=== PATIENT | female | born 1940 | race Caucasian/White ===

== ENCOUNTER → 2019-06-25 10:56 | Outpatient (BNVA) | payer MEDICARE, MEDICAID, SELFPAY | PROVIDERS: PCP Nurse Practitioner Family; Visit Provider Nurse Practitioner Family | DX: E53.8 Deficiency of other specified B group vitamins (principal) | CPT/HCPCS: 82607 ==

== ENCOUNTER 2019-08-06 09:12 | Day surgery (SDC) | payer MEDICARE, MEDICAID, SELFPAY ==
[2019-08-04 10:52] VITALS: BMI 20.6
[2019-08-06 09:27] VITALS: BP 152/60; PULSE 87; RESP 18; TEMP 36.8; O2SAT 97
--- NOTE | 2019-08-06 09:27 | W.PM.OPSUD ---
Surgery/Procedure H&P Update DATE OF PROCEDURE: August 06, 2019 DATE H&P PERFORMED: 07/28/19 H&P UPDATE INFORMATION: No changes to prior documentation PLANNED PROCEDURE: Operation Date: 08/06/19 10:45 Proposed Procedures p Colonoscopy(Not Applicable) - Sharan Venegas MD
[2019-08-06] MEDS: sodium chloride 0.9% 1,000 ML 30 ML IV (09:37)
--- NOTE | 2019-08-06 09:41 | ANES.PREANE2 ---
Pre-Anesthetic Assessment Pre-Anesthetic Assessment: Height/Weight: Height 1.65 m Weight 56.245 kg Temp Pulse Resp BP Pulse Ox 98.3 F 87 18 152/60 97 08/06/19 09:27 08/06/19 09:27 08/06/19 09:27 08/06/19 09:27 08/06/19 09:27 Preop Diagnosis: abdominal pain Proposed Procedure: Operation Date: 08/06/19 10:45 Proposed Procedures p Colonoscopy(Not Applicable) - Sharan Venegas MD Familial anesthetic complications: None Was Beta Jose Luis taken within 24 hours: N/A Last intake: Intake Last Liquid Date 08/05/19 Last Liquid Time 22:00 Last Solid Date 08/04/19 Social: Social History: Tobacco and No alcohol Exam: Pre-Anes Outpt Exam: alert, oriented x 3, clear to auscultation bilaterally and regular rate & rhythm Airway: MP: 4 Dentition: False Pulmonary: Pulmonary: COPD GI: GI: GERD Metabolic: Metabolic: Hyperlipidemia Meds/Allergies Current Medications: Current Medications Generic Name Dose Route Start Last Admin Trade Name Freq PRN Reason Stop Dose Admin Sodium Chloride 1,000 mls @ 30 ml s/hr 08/06/19 09:30 08/06/19 09:37 Sodium Chloride 0.9% IV 08/07/19 09:29 30 mls/hr .Q24H ANNAMARIE Administration PFSH Anesthesia PFSH: Medical History Anxiety Cigarette smoker COPD (chronic obstructive pulmonary disease) Diverticulosis GERD (gastroesophageal reflux disease) Internal hemorrhoids Multiple lung nodules (~03/2019) 5mm right upper lobe 3mm right lower lob (CT ) Thyroid nodule 9mm left thyroid gland 10mm in isthmus (CT ) Vitamin B12 deficiency Vitamin D deficiency Surgical History Status post cholecystectomy Family History Other CAD (coronary artery disease) Cancer Social History Smoking and tobacco status: current every day smoker Alcohol intake: never Data Anesthesia Cardiac Studies: No Data to Display
[2019-08-06 12:01] VITALS: BP 120/58; PULSE 74; RESP 16; TEMP 36.1; O2SAT 100
[2019-08-06 12:27] VITALS: BP 137/69; PULSE 73; RESP 18; O2SAT 98
== END 2019-08-06 12:50 | disposition home or self-care (01) ==
PROVIDERS: PCP Nurse Practitioner Family; Visit Provider Surgery
PROC: 0DJD8ZZ Inspection of Lower Intestinal Tract, Via Natural or Artificial Opening Endoscopic (ICD-10-PCS; CPT 45378; principal; 2019-08-06 10:45)
DX: Z86.010 Personal history of colon polyps (principal); Z80.0 Family history of malignant neoplasm of digestive organs; Z83.71 Family history of colonic polyps; R10.9 Unspecified abdominal pain; D12.5 Benign neoplasm of sigmoid colon; D12.3 Benign neoplasm of transverse colon; K57.30 Diverticulosis of large intestine without perforation or abscess without bleeding; K64.8 Other hemorrhoids; J44.9 Chronic obstructive pulmonary disease, unspecified; K21.9 Gastro-esophageal reflux disease without esophagitis; E78.5 Hyperlipidemia, unspecified; F41.9 Anxiety disorder, unspecified; F17.210 Nicotine dependence, cigarettes, uncomplicated; Z82.49 Family history of ischemic heart disease and other diseases of the circulatory system
CPT/HCPCS: 12345; 45385; 88305; J2704; J7030

== ENCOUNTER → 2019-11-25 11:52 | Outpatient (BNVA) | payer MEDICARE, MEDICAID, SELFPAY | PROVIDERS: PCP Nurse Practitioner Family; Visit Provider Nurse Practitioner Family | DX: K21.9 Gastro-esophageal reflux disease without esophagitis (principal); M62.838 Other muscle spasm; J44.9 Chronic obstructive pulmonary disease, unspecified; J30.89 Other allergic rhinitis; D64.9 Anemia, unspecified; F41.9 Anxiety disorder, unspecified; E78.2 Mixed hyperlipidemia; E83.42 Hypomagnesemia; E55.9 Vitamin D deficiency, unspecified; Z79.899 Other long term (current) drug therapy; E53.8 Deficiency of other specified B group vitamins; E04.1 Nontoxic single thyroid nodule; R91.8 Other nonspecific abnormal finding of lung field | CPT/HCPCS: 80053; 80061; 81003; 82306; 82607; 83036; 83550; 83735; 84443; 85025 ==

== ENCOUNTER → 2019-12-22 09:49 | Outpatient (BNVA) | payer MEDICARE, MEDICAID, SELFPAY | PROVIDERS: PCP Nurse Practitioner Family; Visit Provider Nurse Practitioner Family | DX: Z11.59 Encounter for screening for other viral diseases (principal); Z20.828 Contact with and (suspected) exposure to other viral communicable diseases | CPT/HCPCS: 87635 ==

== ENCOUNTER → 2020-02-15 16:54 | Outpatient (BNVA) | payer MEDICARE, MEDICAID, SELFPAY | PROVIDERS: PCP Nurse Practitioner Family; Visit Provider Nurse Practitioner | DX: Z20.828 Contact with and (suspected) exposure to other viral communicable diseases (principal) | CPT/HCPCS: 87635 ==

== ENCOUNTER → 2020-02-23 09:45 | Outpatient (BNVA) | payer MEDICARE, MEDICAID, SELFPAY | PROVIDERS: PCP Nurse Practitioner Family; Visit Provider Emergency Medicine | DX: Z20.828 Contact with and (suspected) exposure to other viral communicable diseases (principal) | CPT/HCPCS: 87635 ==

== ENCOUNTER → 2020-05-17 11:38 | Outpatient (BNVA) | payer MEDICARE, MEDICAID, SELFPAY | PROVIDERS: PCP Nurse Practitioner Family; Visit Provider Family Medicine | DX: E53.8 Deficiency of other specified B group vitamins (principal) | CPT/HCPCS: 82607 ==

== ENCOUNTER → 2020-07-28 13:35 | Outpatient (BNVA) | payer MEDICARE, MEDICAID, SELFPAY | PROVIDERS: PCP Nurse Practitioner Family; Visit Provider Nurse Practitioner Family | DX: E53.8 Deficiency of other specified B group vitamins (principal); Z79.899 Other long term (current) drug therapy; E04.1 Nontoxic single thyroid nodule; D64.9 Anemia, unspecified; E55.9 Vitamin D deficiency, unspecified; J44.9 Chronic obstructive pulmonary disease, unspecified; E78.2 Mixed hyperlipidemia | CPT/HCPCS: 80053; 80061; 82306; 82607; 83036; 83550; 83735; 83921; 84439; 84443; 84481; 85025 ==

== ENCOUNTER → 2020-08-01 09:15 | Outpatient (BNVA) | payer MEDICARE, MEDICAID, SELFPAY | PROVIDERS: PCP Nurse Practitioner Family; Visit Provider Nurse Practitioner Family | DX: E53.8 Deficiency of other specified B group vitamins (principal) | CPT/HCPCS: 82607 ==

== ENCOUNTER → 2020-10-11 11:31 | Outpatient (BNVA) | payer MEDICARE, MEDICAID, SELFPAY | PROVIDERS: PCP Nurse Practitioner Family; Visit Provider Nurse Practitioner Family | DX: E53.8 Deficiency of other specified B group vitamins (principal) | CPT/HCPCS: 82607 ==

== ENCOUNTER → 2021-03-02 13:49 | Outpatient (BNVA) | payer MEDICARE, MEDICAID, SELFPAY | PROVIDERS: PCP Nurse Practitioner Family; Visit Provider Nurse Practitioner Family | DX: K52.9 Noninfective gastroenteritis and colitis, unspecified (principal); E53.8 Deficiency of other specified B group vitamins; Z90.49 Acquired absence of other specified parts of digestive tract | CPT/HCPCS: 74018 ==

== ENCOUNTER → 2021-07-24 15:47 | Outpatient (BNVA) | payer MEDICARE, MEDICAID, SELFPAY | PROVIDERS: PCP Nurse Practitioner Family; Visit Provider Family Medicine | DX: R59.0 Localized enlarged lymph nodes (principal); E07.9 Disorder of thyroid, unspecified; R63.4 Abnormal weight loss | CPT/HCPCS: 84443 ==

== ENCOUNTER → 2021-08-08 12:30 | Outpatient (BNVA) | payer MEDICARE, MEDICAID, SELFPAY | PROVIDERS: PCP Family Medicine; Referring Provider Family Medicine; Visit Provider Otolaryngology | DX: E04.2 Nontoxic multinodular goiter (principal); F17.200 Nicotine dependence, unspecified, uncomplicated | CPT/HCPCS: 99203; 99204 ==

== ENCOUNTER 2021-09-14 11:51 | Outpatient (CLI) | payer MEDICARE, MEDICAID, SELFPAY ==
--- NOTE | 2021-09-14 12:15 | US_ITS ---
WS: [id number] THYROID ULTRASOUND HISTORY: thyroid nodules COMPARISON: 01/27/2018 Right lobe: 1.4 cm x 1.7 cm x 5.4 cm (w x ap x l). Volume: 6.7 cm3. Normal size gland. Predominantly cystic nodules are present within the RIGHT thyroid. Along the junct ion of the RIGHT lobe and the isthmus is a predominant cystic nodule with septations and no increased vascularity or mural nodule. This large collection measures 2.0 x 1.1 x 2.2 cm. Slightly increased i n size since the prior study. There are additional small colloid cyst. Left lobe: 1.3 cm x 1.1 cm x 4.5 cm (w x ap x l). Volume: 3.1 cm3. Normal size gland with a few small colloid nodules. No solid mass. Isthmus: 0.4 cm. US/US thyroid [id number] IMPRESSION: 1. Predominant cystic nodule with a few septations along the RIGHT isthmus. Mi ldly increased in size since 01/27/2018. There is no mural nodule. Low probabil ity of malignancy. 2. Additional bilateral benign colloid nodules.
== END 2021-09-14 11:52 | disposition home or self-care (01) ==
LOC: RAD 11:52
PROVIDERS: PCP Family Medicine; Visit Provider Otolaryngology
DX: E04.2 Nontoxic multinodular goiter (principal)
CPT/HCPCS: 76536

== ENCOUNTER 2021-09-26 13:00 | Oncology outpatient (recurring) (ONCR) | payer MEDICARE, MEDICAID, SELFPAY ==
[2021-09-19 17:03] LABS: Basophils % 0.9 %; Eosinophils # 0.1 10^3/uL (0.0-0.8); Eosinophils % 2.8 %; Hemoglobin 12.3 g/dL (11.5-15.3); Lymphocytes # 1.5 10^3/uL (0.8-4.8); Lymphocytes % 31.3 %; Mean Corpuscular HGB Conc 32.4 g/dL (30.0-36.0); Mean Corpuscular Hemoglobin 29.3 pg (28.0-34.0); Mean Corpuscular Volume 90.5 fl (81-99); Mean Platelet Volume 10.4 fL (7.4-10.4); Monocytes # 0.4 10^3/uL (0.2-0.9); Monocytes % 8.6 %; Neutrophils # 2.63 10^3/uL (1.8-7.7); Neutrophils % 56.2 %; Nucleated Red Blood Cells % 0 %; Platelet Count 274 10^3/cmm (130-400); Red Cell Distribution Width 14.2 % (12.1-15.1); White Blood Count 4.7 10^3/uL (4.0-10.0)
[2021-09-19 17:13] LABS: Erythrocyte Sedimentation Rate 12 mm/hr (0-15)
[2021-09-19 17:22] LABS: Alanine Aminotransferase 13 U/L (0-33); Albumin Level 4.2 g/dL (3.5-5.2); Alkaline Phosphatase 105 IU/L (35-105); Aspartate Amino Transferase 17 U/L (0-32); Blood Urea Nitrogen 14 mg/dL (8-23); Calcium 9.2 mg/dL (8.5-10.5); Carbon Dioxide 27 mmol/L (22-29); Chloride 93 mmol/L (98-107); Glucose 81 mg/dL (65-115); Lactate Dehydrogenase 113 U/L (135-214); Osmolality Calculated 270 mOsm/kg (285-295); Sodium 130 mmol/L (136-145); Total Bilirubin 0.2 mg/dL (0.15-1.2); Total Protein 7.2 g/dL (6.6-8.7)
[2021-09-26] MEDS: iohexol 350 mg/mL 100 mL Btl IV (12:37)
--- NOTE | 2021-09-26 13:00 | CT_ITS ---
WS: [id number] CT CHEST, ABDOMEN AND PELVIS WITH CONTRAST. HISTORY: Restaging, patient denies cancer history. TECHNIQUE: Contiguous 5 mm axial imaging performed through the chest, abdomen and pelvis with IV cont rast, oral contrast has been provided. Coronal and sagittal reformats chest. Coronal and sagittal ref ormats through the abdomen and pelvis. All CT scans at [facility] use at least one of these d ose optimization techniques: automated exposure control; mA and/or kV adjustment per patient size (in cludes targeted exams where dose is matched to clinical indication); or iterative reconstruction. CONTRAST: Omnipaque 350; 75 mL IV. DLP: 1128.03 mGy.cm COMPARISON: 07/18/2021, chest CT 08/01/[address] 08/08/2010. Chest CT: Hyperexpanded lungs from chronic emphysema. Linear areas of thin subsegmental atelectasis i n the RIGHT middle and lower lobes bilaterally. There is a new subsolid nodule LEFT lower lobe with g roundglass attenuation. Slight tree-in-bud opacifications therefore this could be inflammatory or inf ectious. Recently described enlarged RIGHT tracheal lymph node is reidentified with no improvement. L ymph node measures 2.9 x 3.1 cm very minimally increased in size. This lymph node appears necrotic an d round. There are additional smaller lymph nodes at the AP window and in the subcarina. Subcarinal l ymph node short axis I.3 cm is enlarged. New RIGHT pleural effusion. Heart size remains normal. No pe ricardial effusion. Unchanged RIGHT isthmus thyroid nodule. Cystic nodule with septations. No axillary lymph nodes. Abdomen CT: Prior cholecystectomy. Liver is normal size. Area of decreased attenuation along the falc iform ligament is probably focal fatty sparing. Additional area of decreased attenuation in the RIGHT lobe of the liver measures 10 mm maximum diameter. Portal vein is normal. Very mild central bile kike t dilatation on the basis of cholecystectomy. Common bile duct measures 8 mm and tapers normally to t he pancreatic head. Normal spleen and pancreas. No adrenal mass. Nonobstructing calcifications within each kidney. No hydronephrosis or solid mass. Moderate atherosclerotic plaque within the aorta. No a neurysm. Plaque continues into the iliac arteries bilaterally. Moderate distention of the stomach with contrast. There is very mild prominence of the stomach wall w hich may be due to underdistention. No small bowel obstruction. The appendix is been removed. There a re a few scattered distal colonic diverticula. Pelvic CT: Urinary bladder is well distended. No free fluid or adenopathy. Uterus is seen now less ex pected. Soft tissue granulomata in the posterior pelvis. Mild degenerative changes in the spine. No d estructive bone lesions. CT/CT chest abd pel w con* IMPRESSION: 1. RIGHT paratracheal lymphadenopathy has very slightly increased in size. The largest lymph node is round and slightly necrotic measuring 2.9 x 3.1 cm. Elton tional mildly enlarged lymph nodes at the AP window and subcarina. No improveme nt. 2. Single very nonspecific subsolid nodule LEFT lower lobe could be postinflam matory. This was not present on the prior study. Recommend follow-up CT in 3 mo nths. 3. New small RIGHT pleural effusion. 4. A few indeterminate areas within the liver may be a fatty sparing. These ca n be further evaluated in 3 months along with the LEFT lower lobe nodule. 5. Prior cholecystectomy and appendectomy. 6. Diverticula but no evidence for acute diverticulitis. No GI tract obstructi on. 7. Moderate atherosclerotic disease throughout the abdominal aorta. 8. No change in the septated RIGHT thyroid isthmus nodule.
== END 2021-10-15 23:59 | disposition home or self-care (01) ==
LOC: RAD 09-27 00:01
PROVIDERS: PCP Family Medicine; Visit Provider Internal Medicine Medical Oncology
DX: R59.0 Localized enlarged lymph nodes (principal); I70.0 Atherosclerosis of aorta; Z53.9 Procedure and treatment not carried out, unspecified reason
CPT/HCPCS: 71260; 74177; 80053; 83615; 85025; 85651; 99204; Q9967

== ENCOUNTER → 2021-10-04 14:52 | Outpatient (BNVA) | payer MEDICARE, MEDICAID, SELFPAY | PROVIDERS: PCP Family Medicine; Visit Provider Internal Medicine Critical Care Medicine | DX: R59.0 Localized enlarged lymph nodes (principal); J44.9 Chronic obstructive pulmonary disease, unspecified; Z87.891 Personal history of nicotine dependence | CPT/HCPCS: 99204 ==

== ENCOUNTER 2021-10-24 08:05 | Day surgery (SDC) | payer MEDICARE, MEDICAID, SELFPAY ==
[2021-10-20 10:29] VITALS: BMI 18.6
[2021-10-24] VITALS (11 sets, daily range): BP systolic 116–166; BP diastolic 57–93; PULSE 66–80; RESP 18–20; TEMP 36.2–36.7; O2SAT 92–100
[2021-10-24] MEDS: sodium chloride 0.9% 1,000 ML 30 ML IV (09:00)
--- NOTE | 2021-10-24 09:46 | ANES.PREANE2 ---
Pre-Anesthetic Assessment Height/Weight: Height 1.68 m Weight 52.163 kg Temp Pulse Resp BP Pulse Ox O2 Del Method 97.2 F L 80 18 159/69 98 10/24/21 08:35 10/24/21 08:35 10/24/21 08:35 10/24/21 08:35 10/24/21 08:35 10/24/21 08:35 Preop Diagnosis: lung mass Operation Date: 10/24/21 10:00 Proposed Procedures p Bronch,EBUS, 31987, 50224, 45425, 61803,R91.8(Not Applicable) - Cydney Carias MD s Ebus(Not Applicable) - Cydney Carias MD Familial anesthetic complications: none Was Beta Jose Luis taken within 24 hours: N/A Was Clonidine taken within 24 hours: N/A Last intake: Intake Last Liquid Date 10/23/21 Last Liquid Time 20:00 Last Solid Date 10/23/21 Last Solid Time 20:00 Social Tobacco and No alcohol Exam alert, oriented x 3 and regular rate & rhythm b/l diminished lung sounds Airway Submandibular: within normal limits Cervical ROM: within normal limits Mallampati: Class II Dentition: false Pulmonary Chronic Obstructive Pulmonary Disease, Exertional Dyspnea and Shortness of Breath Denies home O2 Mediastinal adenopathy CT 09/26/21 CT/CT chest abd pel w con* IMPRESSION: ? 1.? RIGHT paratracheal lymphadenopathy has very slightly increased in size. The largest lymph node is round and slightly necrotic measuring 2.9 x 3.1 cm. Additional mildly enlarged lymph nodes at the AP window and subcarina. No improvement. 2.? Single very nonspecific subsolid nodule LEFT lower lobe could be postinflammatory. This was not present on the prior study. Recommend follow-up CT in 3 months. 3.? New small RIGHT pleural effusion. 4.? A few indeterminate areas within the liver may be a fatty sparing. These can be further evaluated in 3 months along with the LEFT lower lobe nodule. 5.? Prior cholecystectomy and appendectomy. 6.? Diverticula but no evidence for acute diverticulitis. No GI tract obstruction. 7.? Moderate atherosclerotic disease throughout the abdominal aorta. 8.? No change in the septated RIGHT thyroid isthmus nodule. ? ? CV/HEM Anemia (Hx of ) Enlarged aorta Na 130 09/19/21 Hepatic None reported GI Gastroesophageal Reflux Disease (WEll controlled ) Metabolic Hyperlipidemia Musc/skel Weakness (Had influenza in July 2021, weak since ) Neuropsych Anxiety and Depression Anesthetic Plan ASA status: 4 Anesthesia: Anesthesia Evaluation and General Other: We discussed risk and benefits of general anesthesia including PONV, sore throat (sometimes severe), corneal abrasion, positioning and peripheral nerve injuries, life threatening allergic reaction, post operative ICU admission requiring prolonged intubation, aspiration, stroke, heart attack, , and rare incidences of recall. Patient consents to proceed with general anesthesia. Risk of > 500 ml blood loss (7ml/kg in children): No Other Pertinent Information EKG pending Medications/Allergies Home Medications Medication Instructions Recorded Confirmed Last Taken Type diazepam 5 mg tablet 5 mg PO TID PRN anxiety 30 days 05/25/21 10/24/21 10/23/21 Rx #90 tabs syringe with needle 3 mL 25 gauge #1 ea 05/25/21 10/17/21 Unknown History x 1 (BD Luer-Patricia Syringe) vit C 250 mg-vit E 200 unit-zinc 1 cap PO DAILY 09/19/21 10/20/21 Unknown History ox 12.5 fp-jfyzra-cemumv-zeax capsule (ICaps AREDS2) loperamide 2 mg capsule (Imodium 2 mg PO Q6H PRN loose stool 15 10/17/21 10/20/21 Unknown Rx A-D) days #30 caps mecobalamin (vitamin B12) 1,000 1,000 mcg PO DAILY 90 days #90 tabs 10/17/21 10/20/21 Unknown Rx mcg chewable tablet glycopyrrolate 9 mcg-formoterol 2 puff inhalation BID #10.7 grams 10/19/21 10/24/21 10/23/21 Rx 4.8 mcg HFA aerosol inhaler (Bevespi Aerosphere) albuterol sulfate 90 mcg/actuation 2 inh inhalation Q6H PRN Shortness 10/20/21 10/24/21 10/23/21 History aerosol inhaler (ProAir HFA) Of Breath cyclobenzaprine 10 mg tablet 10 mg PO DAILY 10/20/21 10/24/21 10/23/21 History fluticasone propionate 50 1 spray intranasal BID 10/20/21 10/24/21 10/23/21 History mcg/actuation nasal spray,suspension guaifenesin 600 mg tablet, 600 mg PO BID 10/20/21 10/24/21 10/23/21 History extended release 12 hr (Mucinex) methylphenidate HCl 5 mg tablet 5 mg PO DAILY 10/20/21 10/24/21 10/23/21 History (Ritalin) chlorhexidine gluconate 0.12 % 15 ml PO BID 10/24/21 10/24/21 10/23/21 History mouthwash omeprazole 20 mg capsule,delayed 20 mg PO DAILY 10/24/21 10/24/21 10/22/21 History release Allergies Allergy/AdvReac Type Severity Reaction Status Date / Time ceftriaxone [From Rocephin] Allergy Mild rash Verified 10/20/21 10: clarithromycin [From Biaxin] Allergy unknown Verified 10/20/21 10: Penicillins Allergy itching Verified 10/20/21 10:22 Current Medications Generic Name Dose Route Start Last Admin Trade Name Freq PRN Reason Stop Dose Admin Sodium Chloride 1,000 mls @ 30 mls/hr 10/24/21 08:30 10/24/21 09:00 Sodium Chloride 0.9% IV 10/25/21 08:29 30 mls/hr .Q24H ANNAMARIE Administration PFSH Anesthesia Medical History Anxiety and depression COPD (chronic obstructive pulmonary disease) Diverticulosis Environmental and seasonal allergies GERD (gastroesophageal reflux disease) History of colonic polyps Hypercholesterolemia Multiple lung nodules 5mm right upper lobe 3mm right lower lob (CT -2018) Nicotine dependence, cigarettes, uncomplicated Vitamin B12 deficiency Vitamin D deficiency Surgical History History of colon surgery Cecal repair following colonoscopy History of colonoscopy Multiple colonoscopy procedures History of neck surgery Removal of benign tumor from the right side of the neck/postauricular area Status post carpal tunnel release of both wrists Status post cholecystectomy (2014) Family History Brother Lung disease Other CAD (coronary artery disease) Cancer Denies family history of Diabetes Clotting disorder Dementia Hyperlipidemia Psychiatric illness Chronic kidney disease (CKD) Suicide Anesthesia complication Bleeding disorder Hypertension Stroke Social History Smoking and tobacco status: former smoker Alcohol intake: never Data Anesthesia Cardiac Studies: No Data to Display
--- NOTE | 2021-10-24 10:02 | ECG_ITS ---
[facility] Test Date: 2021-10-24 Pat Name: Ludin Gramajo Department: Room: Gender: Female Bus Boy: : 1940 Requested By: Akiko Suarez Order Number: [id number] Maritza MD: Lavell Siegel M.D. Measurements Intervals [place] Rate: 71 P: 79 FL: 154 QRS: 45 QRSD: 99 T: 76 QT: 404 QTc: 441 Interpretive Statements SINUS RHYTHM LOW QRS VOLTAGE IN PRECORDIAL LEADS [QRS DEFLECTION < 1.0 mV IN CHEST LEADS] No previous ECG available for comparison Electronically Signed On 10-24-2021 18:57:16 CDT by Lavell Siegel M.D. [id number]
--- NOTE | 2021-10-24 10:42 | W.PM.OPSUD ---
Surgery/Procedure H&P Update DATE OF PROCEDURE: October 24, 2021 DATE H&P PERFORMED: 10/04/21 PREOP DIAGNOSIS: lung mass PRIMARY INDICATION FOR PROCEDURE: Enlarging right paratracheal lymphadenopathy PLANNED PROCEDURE: Bronchoscopy with inspection of the airway, possible endobronchial biopsy, bronchoalveolar lavage, endobronchial sound guided transbronchial needle aspiration of lymph nodes and control of bleeding. Operation Date: 10/24/21 10:00 Proposed Procedures p Bronch,EBUS, 69640, 65608, 49675, 47525,R91.8(Not Applicable) - Cydney Carias MD s Ebus(Not Applicable) - Cydney Carias MD
--- NOTE | 2021-10-24 12:09 | P.OP_ITS ---
Operative Report Date of procedure: October 24, 2021 Pre-op diagnosis: Preop Diagnosis mediastinal and hilar lymphadenopathy Post-op diagnosis: Same Brief History: This is a 81-year-old lady coming in for bronchoscopic evaluation for persistent midsternal hilar lymphadenopathy. Procedure: Name of the procedure: Bronchoscopy with inspection of the airway, endobronchial ultrasound-guided transbronchial needle aspiration of lymph nodes and control of bleeding. Indication: Persistent mediastinal hilar lymphadenopathy. Anesthesia: General anesthesia. Local anesthesia: The vocal cords, trachea, rex and the right and left mainstem bronchi were anesthetized with 1% lidocaine, 7 mL. Description of the procedure: The procedure was explained to the patient and the consent was obtained. The patient was brought to the OR. The patient underwent laryngeal mask airway placement for anesthesia. Following induction of general anesthesia, the bronchoscope was advanced through the LMA. The vocal cords are normal. The upper and lower trachea are normal. The rex was sharp. The rex, the right and left mainstem bronchi are anesthetized with 1% lidocaine. In a systematic manner bilateral bronchial tree was then examined. The bronchoscope was advanced into the left mainstem bronchus. The left upper lobe, lingula and left lower lobe bronchi were examined up to the third subsegmental level and no abnormalities were identified. The bronchoscope was then introduced into the right mainstem bronchus. The right upper lobe, right middle lobe and right lower lobe bronchi were examined up to the third subsegmental level and no abnormalities were identified. There was mucus throughout the airways. The endobronchial ultrasound was introduced through the ET tube. Significant right paratracheal, subcarinal, hilar lymphadenopathies were identified. Fine- needle aspiration was performed from station 4R. Multiple samples were obtained. Samples: 1. The transbronchial needle aspiration of the aforementioned lymph node groups were sent for histopathology and flow cytometry. Complications: There was no immediate complications.
[2021-10-24] MEDS: lidocaine 1% INJ 20 mL XX (12:12)
--- NOTE | 2021-10-24 15:01 | ANE.PACU2 ---
Inpatient post-anesthesia follow up: Airway intact: Yes Vital signs: Temperature 98.1 F Pulse Rate 68 Respiratory Rate 18 Blood Pressure 138/81 Pulse Oximetry 92 Oxygen Delivery Me thod Room Air Oxygen Flow Rate 4 Fraction of Inspir ed Oxygen Hydration adequate: Yes Nausea and vomiting: No Pain level: 1 Mental status: Baseline
[2021-10-24 20:39] LABS: Cyto Order Verification Order Verified
[2021-10-24 20:41] LABS: Lymphoma Profile (BBPL) See Report
== END 2021-10-24 13:16 | disposition home or self-care (01) ==
PROVIDERS: PCP Family Medicine; Visit Provider Internal Medicine Critical Care Medicine
PROC: 0BJ08ZZ Inspection of Tracheobronchial Tree, Via Natural or Artificial Opening Endoscopic (ICD-10-PCS; CPT 31622; principal; 2021-10-24 09:50)
PROC: BB4BZZZ Ultrasonography of Pleura (ICD-10-PCS; 2021-10-24 09:50)
DX: C96.9 Malignant neoplasm of lymphoid, hematopoietic and related tissue, unspecified (principal); K21.9 Gastro-esophageal reflux disease without esophagitis; E78.5 Hyperlipidemia, unspecified; F41.9 Anxiety disorder, unspecified; F32.A Depression, unspecified; E78.00 Pure hypercholesterolemia, unspecified; Z86.010 Personal history of colon polyps; Z87.891 Personal history of nicotine dependence
CPT/HCPCS: 31622; 31652; 80503; 88184; 88185; 88305; 88342; 93005; J2704; J7030

== ENCOUNTER 2021-11-03 11:09 | Oncology outpatient (recurring) (ONCR) | payer MEDICARE, MEDICAID, SELFPAY | END 2021-11-15 23:59 | disposition home or self-care (01) | PROVIDERS: PCP Family Medicine; Visit Provider Internal Medicine Medical Oncology | DX: C80.1 Malignant (primary) neoplasm, unspecified (principal); C77.1 Secondary and unspecified malignant neoplasm of intrathoracic lymph nodes; F17.210 Nicotine dependence, cigarettes, uncomplicated; Z79.899 Other long term (current) drug therapy | CPT/HCPCS: 99215 ==

== ENCOUNTER 2021-12-11 15:04 | Oncology outpatient (recurring) (ONCR) | payer MEDICARE, MEDICAID, SELFPAY ==
--- NOTE | 2021-11-24 14:42 | MR_ITS ---
WS: [id number] MRI BRAIN WITH AND WITHOUT CONTRAST HISTORY: INITIAL STAGING FOR SMALL CELL CANCER COMPARISON: None available. TECHNIQUE: Multiplanar imaging performed through the brain with MultiHance 12 ml's IV. No acute infarcts are seen. Ozuna-white matter differentiation is well preserved. Mild atrophy with mo derate small vessel ischemic changes throughout the white matter. No prior infarct. No susceptibility artifacts or prior lacunar infarcts. Ventricles and extra-axial spaces are normal. Clivus and pituitary gland are normal. Visualized posterior fossa and brainstem are also normal. Postcontrast images are negative for masses or vascular malformations. Dural venous sinuses are normal. Paranasal sinuses: Very small amount mucoperiosteal thickening in the frontal and ethmoid air cells. No air-fluid levels. Mastoid air cells: Normal. Calvarium and scalp: Normal. MR/MR head wo/w con [id number] IMPRESSION: 1. No evidence for metastatic disease to the brain. 2. Mild atrophy and moderate small vessel ischemic changes.
[2021-11-24] MEDS: gadobenate dimeglumine 20 mL vial IV (15:56)
== END 2021-12-15 23:59 | disposition home or self-care (01) ==
PROVIDERS: PCP Family Medicine; Visit Provider Internal Medicine Medical Oncology
DX: C77.1 Secondary and unspecified malignant neoplasm of intrathoracic lymph nodes (principal); F17.210 Nicotine dependence, cigarettes, uncomplicated
CPT/HCPCS: 70553; 99215

== ENCOUNTER 2021-12-30 12:07 | Observation (INO) | payer MEDICARE, MEDICAID, SELFPAY ==
[2021-12-30] VITALS (7 sets, daily range): BP systolic 101–121; BP diastolic 64–82; PULSE 86–108; RESP 16–18; TEMP 36.6–37.7; O2SAT 94–99; BMI 19.3; BMI 18.6
--- NOTE | 2021-12-30 12:07 | XRR_ITS ---
PROCEDURE INFORMATION: Exam: XR Chest Exam date and time: 12/30/2021 12:40 PM Age: 81 years old Clinical indication: Cough TECHNIQUE: Imaging protocol: Radiologic exam of the chest. Views: 2 views. COMPARISON: CT chest abd pel w con* 09/26/2021 12:32 PM FINDINGS: Lungs: Diffuse parenchymal density is seen in the right middle lobe lateral segment. This finding is new since prior examination. This finding correlates with probable alveolar pneumonia. There is nonspecific parenchymal densities in the right upper lobe this finding is new since prior examination this also may represent a developing pneumonia Pleural spaces: Unremarkable. No pleural effusion. No pneumothorax. Heart/Mediastinum: Unremarkable. No cardiomegaly. Bones/joints: Unremarkable. XR/XR chest 2V* [id number] IMPRESSION: 1. Right middle lobe pneumonia 2. Right upper lobe parenchymal density rule out pneumonia
--- NOTE | 2021-12-30 12:18 | ED_ITS ---
HPI - General Adult General: Chief complaint: Shortness of Breath/Dyspnea Stated complaint: shortness of breath Time Seen by Provider: 12/30/21 12:07 History of Present Illness: Patient is a 81-year-old female presenting today with shortness of breath and productive cough. Patient notes that she has had worsening cough for a long while. However this morning had significant increase in shortness of breath as well as cough. Cough is productive for phlegm as well as bloody sputum. Has a history of COPD. No recent steroids or antibiotics. No new pain or swelling in her lower extremities. No history of blood clots. Is not currently on blood thinners. She does note intermittent fevers. As well as diffuse body aches. Review of Systems General: Reports: 10 or more systems reviewed and unremarkable except in HPI and below PFSH ED PFSH: Medical History Anxiety and depression COPD (chronic obstructive pulmonary disease) Diverticulosis Environmental and seasonal allergies GERD (gastroesophageal reflux disease) History of colonic polyps Hypercholesterolemia Multiple lung nodules 5mm right upper lobe 3mm right lower lob (CT -2018) Nicotine dependence, cigarettes, uncomplicated Vitamin B12 deficiency Vitamin D deficiency Surgical History History of colon surgery Cecal repair following colonoscopy History of colonoscopy Multiple colonoscopy procedures History of neck surgery Removal of benign tumor from the right side of the neck/postauricular area Status post carpal tunnel release of both wrists Status post cholecystectomy (2014) Family History Brother Lung disease Other CAD (coronary artery disease) Cancer Denies family history of Diabetes Clotting disorder Dementia Hyperlipidemia Psychiatric illness Chronic kidney disease (CKD) Suicide Anesthesia complication Bleeding disorder Hypertension Stroke Social History Smoking and tobacco status: current every day smoker (1 ppd, smoked x 50+ years) cigarettes Packs smoked per day: 1 Years cigarettes smoked: 59 [ Other cigarette details: Started at age 22] Alcohol intake: never Physical Exam Const: COMMON NORMALS: no acute distress, patient oriented x3 and alert GENERAL APPEARANCE: cooperative ORIENTATION/CONSCIOUSNESS: Yes awake, Yes oriented to person, Yes oriented to place and Yes oriented to time HENMT: COMMON NORMALS: normocephalic, atraumatic, external ears normal, Normal external nose present and moist oral mucous membranes HEAD & SCALP: normal to inspection, normocephalic and atraumatic NOSE: Normal external nose present GENERAL EAR: hearing grossly impaired EXTERNAL EAR: Yes external ears normal Eye: COMMON NORMALS: Equal, round and reactive pupils present, EOMs intact bilaterally, conjunctivae normal and no scleral icterus GENERAL EYE: appearance normal, both eyes and all related structures EYELID: eyelids normal CONJUNCTIVA: Yes conjunctivae normal SCLERA: sclerae normal PUPIL: Yes Equal, round and reactive pupils present Neck/C-Spine: COMMON NORMALS: full ROM, supple and no JVD GENERAL: Yes normal visual inspection Lymph: LYMPHATIC: no lymphadenopathy noted and no lymphedema noted Chest: COMMONS NORMALS: normal inspection of the chest Resp: COMMON NORMALS: normal respiratory effort (Right sided crackles and wheezing), No retractions and No use of accessory muscles Cardio: COMMON NORMALS: no JVD, regular rate and regular rhythm RATE: regular rate RHYTHM: regular rhythm GI: COMMON NORMALS: Normal to inspection, nondistended, normoactive bowel sounds present : COMMON NORMALS: Yes no CVA tenderness BLADDER/KIDNEY EXAM: Yes no CVA tenderness Back/Pelvis: COMMON NORMALS: no CVA tenderness and thoracic and lumbar spine normal to inspection Extremity: COMMON NORMALS: normal to inspection, full ROM and capillary refill normal GENERAL: Yes normal exam except as noted Neuro: COMMON NORMALS: patient oriented x3, CN's II-XII intact bilaterally, moves all extremities, no focal motor deficits, no sensory deficits noted and gait normal SENSORIUM/ORIENTATION: Yes alert, Yes oriented to person, Yes oriented to place and Yes oriented to time Psych: COMMON NORMALS: mental status grossly normal, Normal thought process present, cooperative and normal affect THOUGHT PROCESS: Normal thought process present Skin: COMMON NORMALS: no rashes or lesions noted and no wounds GENERAL SKIN EXAM: no rashes or lesions noted Course Vital Signs: Vital signs: Vital Signs Temperature 99.8 F H 12/30/21 12:10 Pulse Rate 101 H 12/30/21 13:30 Respiratory Rate 16 12/30/21 12:10 Blood Pressure 114/64 12/30/21 13:30 Pulse Oximetry 94 12/30/21 13:30 Oxygen Delivery Me thod 12/30/21 13:30 MDM - General Adult Medical Decision Making 81-year-old female presenting today with shortness of breath and productive cough. X-ray with evidence of right lower lobe pneumonia. We will start patient on levofloxacin secondary to allergy to ceftriaxone and penicillin. Blood cultures drawn. Patient admitted in stable condition. Lab Data : 12/30/21 12:10 12/30/21 12:10 Radiology Impressions Chest X-Ray 12/30/21 12:07 IMPRESSION: 1. Right middle lobe pneumonia 2. Right upper lobe parenchymal density rule out pneumonia Laboratory Results WBC 5.4 10^3/uL (4.0-10.0) 12/30/21 12:10 RBC 4.38 10^6/uL (4.1-5.3) 12/30/21 12:10 Hgb 12.9 g/dL (11.5-15.3) 12/30/21 12:10 Hct 39.5 % (37.0-47.0) 12/30/21 12:10 MCV 90.2 fl (81-99) 12/30/21 12:10 MCH 29.5 pg (28.0-34.0) 12/30/21 12:10 MCHC 32.7 g/dL (30.0-36.0) 12/30/21 12:10 RDW 13.4 % (12.1-15.1) 12/30/21 12:10 Plt Count 226 10^3/cmm (130-400) 12/30/21 12:10 MPV 9.7 fL (7.4-10.4) 12/30/21 12:10 Neut % (Auto) 86.3 % 12/30/21 12:10 Lymph % (Auto) 7.1 % 12/30/21 12:10 [place] % (Auto) 5.6 % 12/30/21 12:10 Eos % (Auto) 0.6 % 12/30/21 12:10 Baso % (Auto) 0.0 % 12/30/21 12:10 Neut # (Auto) 4.63 10^3/uL (1.8-7.7) 12/30/21 12:10 Lymph # (Auto) 0.4 10^3/uL (0.8-4.8) L 12/30/21 12:10 [place] # (Auto) 0.3 10^3/uL (0.2-0.9) 12/30/21 12:10 Eos # (Auto) 0.0 10^3/uL (0.0-0.8) 12/30/21 12:10 Baso # (Auto) 0.0 10^3/uL (0.0-0.1) 12/30/21 12:10 Nucleated RBC % (auto) 0 % 12/30/21 12:10 Nucleated RBCs # 0.0 /100WBC 12/30/21 12:10 Sodium 130 mmol/L (136-145) L 12/30/21 12:10 Potassium 3.9 mmol/L (3.5-5.1) 12/30/21 12:10 Chloride 95 mmol/L (98-107) L 12/30/21 12:10 Carbon Dioxide 22 mmol/L (22-29) 12/30/21 12:10 Anion Gap 16.9 (5-19) 12/30/21 12:10 BUN 13 mg/dL (8-23) 12/30/21 12:10 Creatinine 0.6 mg/dL (0.5-0.9) 12/30/21 12:10 GFR Calculation Not Reportable 12/30/21 12:10 Glucose 94 mg/dL (65-115) 12/30/21 12:10 Calculated Osmolality 270 mOsm/kg (285-295) L 12/30/21 12:10 Calcium 9.0 mg/dL (8.5-10.5) 12/30/21 12:10 Total Bilirubin 0.4 mg/dL (0.15-1.2) 12/30/21 12:10 AST 41 U/L (0-32) H 12/30/21 12:10 ALT 30 U/L (0-33) 12/30/21 12:10 Alkaline Phosphatase 101 U/L (35-105) 12/30/21 12:10 Total Protein 6.7 g/dL (6.6-8.7) 12/30/21 12:10 Albumin 3.6 g/dL (3.5-5.2) 12/30/21 12:10 Globulin 3.1 g/dL (1.3-4.6) 12/30/21 12:10 Discharge Plan Discharge Patient Disposition: Admitted As Inpatient Clinical Impression: Pneumonia Condition: Stable Prescriptions: No Action (DME) BD Luer-Patricia Syringe 3 mL 25 gauge x 1 syringe See Rx Instructions .ROUTE .MEDSUPPLY Qty: 1 Rx Instructions: As directed Mary Espitia 160-9-4.8 mcg/actuation HFA aerosol inhaler 2 inh inhalation BID Mag 64 64 mg tablet,delayed release (DR/EC) 64 mg PO DAILY 30 Days Qty: 30 0RF omeprazole 20 mg capsule,delayed release(DR/EC) 20 mg PO DAILY 90 Days Qty: 90 1RF Rx Instructions: TAKE ONE CAPSULE BY MOUTH DAILY cyclobenzaprine 10 mg tablet 10 mg PO DAILY 90 Days Qty: 90 0RF Rx Instructions: TAKE 1 TABLET BY MOUTH DAILY NEEDED FOR MUSCLE SPASM diazepam 5 mg tablet 5 mg PO TID PRN (Reason: anxiety) 30 Days Qty: 90 0RF methylphenidate HCl [Ritalin] 5 mg tablet 5 mg PO DAILY 30 Days Qty: 30 0RF Incruse Ellipta 62.5 mcg/actuation blister with device 1 inh inhalation DAILY Qty: 30 0RF budesonide-formoterol [Symbicort] 160-4.5 mcg/actuation HFA aerosol inhaler 1 inh inhalation BID Qty: 10.2 0RF albuterol sulfate [ProAir HFA] 90 mcg/actuation HFA aerosol inhaler 2 inh inhalation Q6H PRN (Reason: Shortness Of Breath) Qty: 8.5 2RF Rx Instructions: USE 2 INHALATIONS EVERY 6 HOURS NEEDED FOR SHORTNESS OF BREATH fluticasone propionate 50 mcg/actuation spray,suspension 1 spray intranasal BID Qty: 16 2RF Rx Instructions: ADMINISTER 1 SPRAY INTO EACH NOSTRIL TWICE DAILY chlorhexidine gluconate 0.12 % mouthwash 15 ml PO BID Qty: 15 0RF Rx Instructions: USE ONE-HALF OUNCE (15ML) BY MOUTH TWICE DAILY varenicline [Chantix] 1 mg tablet 1 mg PO DAILY 30 Days Qty: 30 0RF ICaps AREDS2 250 mg-200 unit -12.5 mg-1 mg capsule 1 cap PO DAILY mecobalamin (vitamin B12) 1,000 mcg tablet,chewable 1,000 mcg PO DAILY 90 Days Qty: 90 0RF loperamide [Imodium A-D] 2 mg capsule 2 mg PO Q6H PRN (Reason: loose stool) 15 Days Qty: 30 0RF guaifenesin [Mucinex] 600 mg tablet extended release 12hr 600 mg PO BID Qty: 60 0RF Rx Instructions: TAKE ONE TABLET BY MOUTH EVERY TWELVE HOURS FOR CONGESTION etoposide 50 mg capsule 300 mg PO .COMPLEX Qty: 12 0RF Rx Instructions: 300 mg orally on days 2 and 3 of a 21 day cycle; prochlorperazine maleate [Compazine] 10 mg tablet 10 mg PO Q4H PRN (Reason: Mild Nausea) Qty: 30 3RF lorazepam 1 mg tablet 0.5 - 1 mg PO Q6H PRN (Reason: Severe Nausea) Qty: 30 3RF Referrals: Fabian Lopez MD [Primary Care Provider] - Coding Level of Care Code ED Telecasting Engineer for Chg Fwd Exam Comprehensive
[2021-12-30 12:30] LABS: Eosinophils % 0.6 %; Hematocrit 39.5 % (37.0-47.0); Hemoglobin 12.9 g/dL (11.5-15.3); Lymphocytes # 0.4 10^3/uL (0.8-4.8); Lymphocytes % 7.1 %; Mean Corpuscular HGB Conc 32.7 g/dL (30.0-36.0); Mean Corpuscular Hemoglobin 29.5 pg (28.0-34.0); Mean Corpuscular Volume 90.2 fl (81-99); Mean Platelet Volume 9.7 fL (7.4-10.4); Monocytes # 0.3 10^3/uL (0.2-0.9); Monocytes % 5.6 %; Neutrophils # 4.63 10^3/uL (1.8-7.7); Neutrophils % 86.3 %; Nucleated Red Blood Cells % 0 %; Platelet Count 226 10^3/cmm (130-400); Red Blood Count 4.38 10^6/uL (4.1-5.3); Red Cell Distribution Width 13.4 % (12.1-15.1); White Blood Count 5.4 10^3/uL (4.0-10.0)
--- NOTE | 2021-12-30 12:52 | ECG_ITS ---
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 Measurements Intervals [place] Rate: 103 P: 73 VA: 137 QRS: 20 QRSD: 88 T: 66 QT: 352 QTc: 462 Interpretive Statements SINUS TACHYCARDIA WITH OCCASIONAL VENTRICULAR PREMATURE COMPLEXES POSSIBLE LEFT ATRIAL ENLARGEMENT [-0.1mV P-WAVE IN V1/V2] ANTEROSEPTAL MYOCARDIAL INFARCTION , OF INDETERMINATE AGE [40+ ms Q WAVE IN V1-V4] Compared to ECG 10/24/2021 10:02:02 Ventricular premature complex(es) now present Myocardial infarct finding now present Sinus rhythm no longer present Electronically Signed On 12-31-2021 22:01:08 CDT by Lavell Siegel M.D. [id number]
[2021-12-30 12:53] LABS: Alanine Aminotransferase 30 U/L (0-33); Albumin Level 3.6 g/dL (3.5-5.2); Alkaline Phosphatase 101 U/L (35-105); Blood Urea Nitrogen 13 mg/dL (8-23); Carbon Dioxide 22 mmol/L (22-29); Chloride 95 mmol/L (98-107); Globulin 3.1 g/dL (1.3-4.6); Glucose 94 mg/dL (65-115); Osmolality Calculated 270 mOsm/kg (285-295); Sodium 130 mmol/L (136-145); Total Bilirubin 0.4 mg/dL (0.15-1.2); Total Protein 6.7 g/dL (6.6-8.7)
[2021-12-30 13:07] LABS: Anion Gap 16.9 (5-19)
[2021-12-30 13:08] LABS: Aspartate Amino Transferase 41 U/L (0-32); Potassium 3.9 mmol/L (3.5-5.1)
[2021-12-30 14:16] LABS: Lactate (Lactic Acid level) 2.1 mmol/L (0.5-2.2)
[2021-12-30] MEDS: levofloxacin-dextrose 5 % 750 MG/150 ML PREMIX 100 MG IV (14:24)
[2021-12-30 14:29] LABS: Adenovirus Not Detected (NOT DETECT); Chlamydia Pneumoniae Not Detected (NOT DETECT); Coronavirus 229E,HKU1,NL63,OC4 Not Detected (NOT DETECT); Human Metapneumovirus Not Detected (NOT DETECT); Human Rhinovirus/Enterovirus Not Detected (NOT DETECT); Influenza A Not Detected (NOT DETECT); Influenza A H1 Not Detected (NOT DETECT); Influenza A H1-2009 Not Detected (NOT DETECT); Influenza A H3 Not Detected (NOT DETECT); Influenza B Not Detected (NOT DETECT); Mycoplasma Pneumoniae Not Detected (NOT DETECT); Parainfluenza Virus Type 1 Not Detected (NOT DETECT); Parainfluenza Virus Type 2 Not Detected (NOT DETECT); Parainfluenza Virus Type 3 Not Detected (NOT DETECT); Parainfluenza Virus Type 4 Not Detected (NOT DETECT); Respiratory Syncytial Virus A Not Detected (NOT DETECT); Respiratory Syncytial Virus B Not Detected (NOT DETECT); SARS-COV-2 Not Detected (NOT DETECT)
--- NOTE | 2021-12-30 15:38 | PM.HP ---
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 At home was having chills. Some nausea. In ER with sinus tachycardia 108 bpm. Low-grade temp 99.8. No leukocytosis. Chest x-ray with right middle lobe pneumonia, right upper lobe parenchymal density cannot rule out pneumonia. COVID-19 PCR is negative. She received Levaquin in ER and hospitalization is requested due to her risk profile. She denies cough with food or drink, although does have some mild dysphagia, states has to take her time with food and drinks, takes only small bites, sips at a time. Denies any aspiration. Review of Systems Const: Denies: fever(s), chills, body aches or malaise Eyes: Denies: change in vision, eye discomfort or eye redness ENMT: Denies: throat pain, oral sores or ear or mastoid pain Card: Denies: chest pain, edema, pre-syncope or dyspnea on exertion Resp: Reports: dyspnea, productive cough and pain on inspiration; Denies: hemoptysis GI: Denies: abdominal pain, nausea, vomiting, diarrhea, constipation, hematochezia or melena : Denies: flank pain, urinary frequency or hematuria Musc: Denies: back pain, joint swelling or joint redness Skin/Breast: Denies: rash or new lesions Neuro: Denies: headache(s), numbness in extremities, weakness in extremities, dizziness, confusion or seizure-like activity Endo: Denies: polyuria or polydipsia Kailash/Lymph: Denies: easy bleeding or tender lymph nodes All/Imm: Denies: urticaria or tongue swelling Medications/Allergies Home Medications Medication Instructions Recorded Confirmed Last Taken Type syringe with needle 3 mL 25 gauge #1 ea 05/25/21 12/30/21 Unknown History x 1 (BD Luer-Patricia Syringe) vit C 250 mg-vit E 200 unit-zinc 1 cap PO DAILY 09/19/21 12/30/21 12/29/21 History ox 12.5 [id number] capsule (ICaps AREDS2) loperamide 2 mg capsule (Imodium 2 mg PO Q6H PRN loose stool 15 10/17/21 12/30/21 Unknown Rx A-D) days #30 caps mecobalamin (vitamin B12) 1,000 1,000 mcg PO DAILY 90 days #90 tabs 10/17/21 12/30/21 12/29/21 Rx mcg chewable tablet cyclobenzaprine 10 mg tablet 10 mg PO DAILY 90 days #90 tabs 12/12/21 12/30/21 12/29/21 Rx diazepam 5 mg tablet 5 mg PO TID PRN anxiety 30 days 12/12/21 12/30/21 Unknown Rx #90 tabs magnesium chloride 64 mg 64 mg PO DAILY 30 days #30 tabs 12/12/21 12/30/21 12/29/21 Rx (magnesium chloride) tablet,delayed release (Mag 64) methylphenidate HCl 5 mg tablet 5 mg PO DAILY 30 days #30 tabs 12/12/21 12/30/21 12/29/21 Rx (Ritalin) omeprazole 20 mg capsule,delayed 20 mg PO DAILY 90 days #90 caps 12/12/21 12/30/21 12/29/21 Rx release guaifenesin 600 mg tablet, 600 mg PO BID #60 tabs 12/14/21 12/30/21 12/29/21 Rx extended release 12 hr (Mucinex) albuterol sulfate 90 mcg/actuation 2 inh inhalation Q6H PRN Shortness 12/27/21 12/30/21 Unknown Rx aerosol inhaler (ProAir HFA) Of Breath #8.5 grams budesonide-formoterol HFA 160 1 inh inhalation BID #10.2 grams 12/27/21 12/30/21 12/29/21 Rx mcg-4.5 mcg/actuation aerosol inhaler (Symbicort) chlorhexidine gluconate 0.12 % 15 ml PO BID #15 mL 12/27/21 12/30/21 Unknown Rx mouthwash lorazepam 1 mg tablet 0.5 - 1 mg PO Q6H PRN Severe 12/27/21 12/30/21 Unknown Rx Nausea #30 tabs prochlorperazine maleate 10 mg 10 mg PO Q4H PRN Mild Nausea #30 12/27/21 12/30/21 Unknown Rx tablet (Compazine) tabs umeclidinium 62.5 mcg/actuation 1 inh inhalation DAILY #30 ea 12/27/21 12/30/21 12/29/21 Rx blister powder for inhalation (Incruse Ellipta) varenicline 1 mg tablet (Chantix) 1 mg PO DAILY 30 days #30 tabs 12/27/21 12/30/21 Unknown Rx fluticasone propionate 50 1 spray intranasal BID PRN Nasal 12/30/21 12/30/21 Unknown History mcg/actuation nasal Congestion spray,suspension Allergies Allergy/AdvReac Type Severity Reaction Status Date / Time ceftriaxone [From Rocephin] Allergy Mild rash Verified 12/27/21 15:29 clarithromycin [From Biaxin] Allergy unknown Verified 12/27/21 15:29 Penicillins Allergy itching Verified 12/27/21 15:29 PFSH Acute PFSH: Medical History Anxiety and depression COPD (chronic obstructive pulmonary disease) Diverticulosis Environmental and seasonal allergies GERD (gastroesophageal reflux disease) History of colonic polyps Hypercholesterolemia Multiple lung nodules 5mm right upper lobe 3mm right lower lob (CT ) Nicotine dependence, cigarettes, uncomplicated Vitamin B12 deficiency Vitamin D deficiency Surgical History History of colon surgery Cecal repair following colonoscopy History of colonoscopy Multiple colonoscopy procedures History of neck surgery Removal of benign tumor from the right side of the neck/postauricular area Status post carpal tunnel release of both wrists Status post cholecystectomy (2014) Family History Brother Lung disease Other CAD (coronary artery disease) Cancer Denies family history of Diabetes Clotting disorder Dementia Hyperlipidemia Psychiatric illness Chronic kidney disease (CKD) Suicide Anesthesia complication Bleeding disorder Hypertension Stroke Social History (Updated 12/30/21 @ 15:39 by Israel Cassidy MD) Smoking and tobacco status: current every day smoker (1 ppd, smoked x 50+ years) cigarettes Packs smoked per day: 1 Years cigarettes smoked: 59 [ Other cigarette details: Started at age 22] Alcohol intake: never Substance/Drug Use: never Lives independently: Yes Household members: none Vitals/I&O/Wt Last Vital Signs Temp 99.8 F H 12/30/21 12:10 Pulse 97 12/30/21 15:00 Resp 18 12/30/21 15:00 BP 101/73 12/30/21 15:00 Pulse Ox 98 12/30/21 15:00 O2 Del Method 12/30/21 13:30 Weight last 48 hrs Weight 51.256 kg Physical Exam Const: COMMON NORMALS: patient oriented x3 and alert GENERAL APPEARANCE: cooperative ORIENTATION/CONSCIOUSNESS: Yes awake HENMT: COMMON NORMALS: oropharynx normal Neck/C-Spine: COMMON NORMALS: no JVD Resp: COMMON NORMALS: normal respiratory effort and clear to auscultation bilaterally AUSCULTATION: crackles Laterality: right Cardio: COMMON NORMALS: no JVD, regular rhythm, S1 normal heart sound present, S2 normal heart sound present and No murmurs present (Cardio) RATE: tachycardic HEART SOUNDS: S1 normal heart sound present and S2 normal heart sound present GI: COMMON NORMALS: Normal to inspection, nondistended, normoactive bowel sounds present, Soft to palpation and non-tender PALPATION: Yes Soft to palpation Extremity: COMMON NORMALS: no joint enlargement and no pedal edema Neuro: COMMON NORMALS: patient oriented x3 and moves all extremities SENSORIUM/ORIENTATION: Yes alert Skin: COMMON NORMALS: no rashes or lesions noted GENERAL SKIN EXAM: no rashes or lesions noted Data : 12/30/21 12:10 12/30/21 12:10 Micro: Microbiology 12/30/21 13:37 Blood Culture - Preliminary Blood SPECIMEN COLLECTED 12/30/21 13:27 Blood Culture - Preliminary Blood SPECIMEN COLLECTED A&P Assessment and plan (1) Pneumonia: Continue Levaquin, monitor oxygenation. Collect sputum culture, urine bacterial antigens. Pneumonia severity index risk class IV, initiate treatment in the hospital. DuoNebs. Budesonide. COVID-19 PCR negative. Check D-dimer. Blood pressure noted somewhat soft in ER, low 100s systolic. Check serum cortisol. Denies aspiration, although does note some dysphagia which she states has managed well with taking her time and taking small bites/sips. Follow-up clinical condition. Consider further evaluation. 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 Smoking addiction: Encourage cessation. Nicotine replacement. Anxiety depression COPD: Duo nebs, budesonide GERD HLD Other chronic problems noted. Attestations Medical Necessity Statement*: Place in observation for additional assessment of management of pneumonia with moderate risk pneumonia severity index and lady of advanced age, with underlying metastatic malignancy. Coding Level of Care Code Acute Chemical Engineering Intern for Wilfrid Lorenzana Diagnoses Pneumonia J18.9
[2021-12-30 15:57] LABS: D Dimer 1.71 ug/mIFEU (0-0.59)
--- NOTE | 2021-12-30 16:17 | CTR_ITS ---
PROCEDURE INFORMATION: Exam: CTA Chest With Contrast Exam date and time: 12/30/2021 6:14 PM Age: 81 years old Clinical indication: Cough and shortness of breath; Additional info: Asess for pe TECHNIQUE: Imaging protocol: Computed tomographic angiography of the chest with contrast. 3D rendering (Not supervised by radiologist): MIP and/or 3D reconstructed images were created by the technologist. Radiation optimization: All CT scans at this facility use at least one of these dose optimization techniques: automated exposure control; mA and/or kV adjustment per patient size (includes targeted exams where dose is matched to clinical indication); or iterative reconstruction. Contrast material: OMNIPAQUE 350; Contrast volume: 80 ml; Contrast route: INTRAVENOUS (IV); COMPARISON: CT chest abd pel w con* 09/26/2021 12:32 PM RADIATION DOSE METRICS: Total DLP (mGy-cm): 171.52 FINDINGS: Pulmonary arteries: Normal. No pulmonary emboli. Aorta: Unremarkable. No aortic aneurysm. No aortic dissection. Thyroid: Thyroid isthmus 16 mm somewhat complicated cyst, similar to prior exam, nonemergent thyroid ultrasound could further evaluate this. Lungs: Patchy right lung airspace infiltrates. Emphysematous changes. Left lower lobe 7.8 mm pulmonary nodule appears somewhat more focal compared to prior exam. Pleural spaces: Moderate right pleural effusion. Heart: Trace pericardial effusion. Coronary artery atherosclerotic calcification. Lymph nodes: Multiple enlarged mediastinal lymph nodes measuring up to 27 mm in the precarinal area, somewhat similar to prior exam, concerning for a malignant process. Gallbladder and bile ducts: Cholecystectomy. Kidneys and ureters: Left kidney nonobstructive calyceal stone. Stomach and bowel: Minimal diverticulosis without diverticulitis suspected. Bones/joints: Unremarkable. No acute fracture. Soft tissues: Unremarkable. CT/CT angio chest PE protcl [id number] IMPRESSION: 1. Negative for pulmonary embolus. 2. Patchy right lung airspace infiltrates. 3. Thyroid isthmus 16 mm somewhat complicated cyst, similar to prior exam, nonemergent thyroid ultrasound could further evaluate this. 4. Multiple enlarged mediastinal lymph nodes measuring up to 27 mm in the precarinal area, somewhat similar to prior exam, concerning for a malignant process. 5. Trace pericardial effusion. 6. Coronary artery atherosclerotic calcification. 7. Moderate right pleural effusion. 8. Cholecystectomy. 9. Left kidney nonobstructive calyceal stone. 10. Minimal diverticulosis without diverticulitis suspected. 11. Emphysematous changes. 12. Left lower lobe 7.8 mm pulmonary nodule appears somewhat more focal compared to prior exam. Please refer to prior PET-CT report from 11/11/2021 for further discussion.
[2021-12-30] MEDS: chlorhexidine gluconate 0.12% Btl 473 mL 15 ML MUCOUS MEM (17:16)
[2021-12-30] MEDS: nicotine 21 mg Patch 1 PATCH TRANSDERMA (17:16)
[2021-12-30] MEDS: enoxaparin 40 mg/0.4 mL Syringe SUBCUT (17:16)
[2021-12-30] MEDS: guaiFENesin 600 mg Tablet PO (17:17)
[2021-12-30] MEDS: acetaminophen 325 mg Tablet 650 MG PO ×2 (17:17→23:03)
[2021-12-30] MEDS: iohexol 350 mg/mL 100 mL Btl IV (18:16)
[2021-12-30] MEDS: budesonide 0.5 mg/2 mL Neb 0.25 MG INHALATION (20:26)
[2021-12-30] MEDS: ipratropium-albuterol 3 mL Neb INHALATION (20:26)
[2021-12-30] MEDS: diazePAM 5 mg Tablet PO (20:59)
[2021-12-30] MEDS: cyclobenzaprine 10 mg Tablet PO (20:59)
[2021-12-30 22:13] LABS: Cortisol Random 20.65 ug/dL (2.47-19.5)
[2021-12-31] VITALS (10 sets, daily range): BP systolic 118–123; BP diastolic 52–77; PULSE 84–113; RESP 16–20; TEMP 36.6–37.8; O2SAT 96–100
[2021-12-31 06:09] LABS: Basophils % 0.1 %; Hematocrit 32.4 % (37.0-47.0); Lymphocytes # 0.9 10^3/uL (0.8-4.8); Lymphocytes % 6.1 %; Mean Corpuscular Hemoglobin 29.8 pg (28.0-34.0); Mean Corpuscular Volume 87.8 fl (81-99); Mean Platelet Volume 9.7 fL (7.4-10.4); Monocytes # 0.6 10^3/uL (0.2-0.9); Monocytes % 3.6 %; Neutrophils # 13.75 10^3/uL (1.8-7.7); Neutrophils % 89.7 %; Nucleated Red Blood Cells % 0 %; Platelet Count 215 10^3/cmm (130-400); Red Blood Count 3.69 10^6/uL (4.1-5.3); Red Cell Distribution Width 13.7 % (12.1-15.1); White Blood Count 15.3 10^3/uL (4.0-10.0)
[2021-12-31 06:47] LABS: Alanine Aminotransferase 25 U/L (0-33); Albumin Level 3.2 g/dL (3.5-5.2); Alkaline Phosphatase 87 U/L (35-105); Anion Gap 14.6 (5-19); Aspartate Amino Transferase 24 U/L (0-32); Blood Urea Nitrogen 12 mg/dL (8-23); Carbon Dioxide 25 mmol/L (22-29); Chloride 96 mmol/L (98-107); Globulin 3.2 g/dL (1.3-4.6); Glucose 99 mg/dL (65-115); Osmolality Calculated 272 mOsm/kg (285-295); Potassium 4.6 mmol/L (3.5-5.1); Sodium 131 mmol/L (136-145); Total Bilirubin 0.3 mg/dL (0.15-1.2); Total Protein 6.4 g/dL (6.6-8.7)
[2021-12-31] MEDS: ipratropium-albuterol 3 mL Neb INHALATION ×4 (07:36→20:09)
[2021-12-31] MEDS: budesonide 0.5 mg/2 mL Neb 0.25 MG INHALATION ×2 (07:36→20:09)
[2021-12-31] MEDS: chlorhexidine gluconate 0.12% Btl 473 mL 15 ML MUCOUS MEM ×2 (08:44→17:27)
[2021-12-31] MEDS: guaiFENesin 600 mg Tablet PO ×2 (08:45→17:26)
[2021-12-31] MEDS: methylphenidate 10 mg Tablet 5 MG PO (08:45)
[2021-12-31] MEDS: pantoprazole DR 40 mg Tablet PO (08:45)
[2021-12-31] MEDS: levofloxacin-dextrose 5 % 500 MG/100 ML PREMIX 100 MG IV (13:56)
[2021-12-31] MEDS: enoxaparin 40 mg/0.4 mL Syringe SUBCUT (16:48)
[2021-12-31] MEDS: nicotine 21 mg Patch 1 PATCH TRANSDERMA (16:48)
--- NOTE | 2021-12-31 20:03 | P.PN_ITS ---
Subjective Subjective: Having cough productive of phlegm feeling only minimally better. Does not feel ready to go home where she lives alone. Vitals/I&O/Wt Last Vital Signs Temp 98.2 F 12/31/21 16:00 Pulse 101 H 12/31/21 16:00 Resp 16 12/31/21 16:00 BP 120/77 12/31/21 16:00 Pulse Ox 97 12/31/21 16:00 O2 Del Method 12/31/21 16:00 12/31/21 12/31/21 12/31/21 06:59 14:59 22:59 Intake Total 120 / 510 360 / 360 220 / 580 Output Total 900 / 900 600 / 600 Balance -780 / -390 -240 / -240 220 / -20 Weight last 48 hrs Weight 52.254 kg Weight 51.256 kg Physical Exam Const: COMMON NORMALS: patient oriented x3 and alert GENERAL APPEARANCE: cooperative ORIENTATION/CONSCIOUSNESS: Yes awake HENMT: COMMON NORMALS: oropharynx normal Neck/C-Spine: COMMON NORMALS: no JVD Resp: COMMON NORMALS: normal respiratory effort and clear to auscultation bilaterally AUSCULTATION: clear to auscultation bilaterally and crackles Laterality: right Cardio: COMMON NORMALS: no JVD, regular rhythm, S1 normal heart sound present, S2 normal heart sound present and No murmurs present (Cardio) RATE: tachycardic RHYTHM: regular rhythm HEART SOUNDS: S1 normal heart sound present and S2 normal heart sound present GI: COMMON NORMALS: Normal to inspection, nondistended, normoactive bowel sounds present, Soft to palpation and non-tender PALPATION: Yes Soft to palpation Extremity: COMMON NORMALS: no joint enlargement and no pedal edema Neuro: COMMON NORMALS: patient oriented x3 and moves all extremities SENSORIUM/ORIENTATION: Yes alert Skin: COMMON NORMALS: no rashes or lesions noted GENERAL SKIN EXAM: no rashes or lesions noted Data : 12/31/21 05:33 12/31/21 05:33 Micro: Microbiology 12/31/21 05:10 Gram Stain - Final Sputum - Expectorated Sputum 12/30/21 19:25 Legionella Urinary Antigen - Final Urine,Voided Bacterial Antigens - Final 12/30/21 13:37 Blood Culture - Preliminary Blood NEGATIVE TO DATE 12/30/21 13:27 Blood Culture - Preliminary Blood NEGATIVE TO DATE A&P Assessment and plan (1) Pneumonia: Feels minimally better. Still feeling weak, productive cough. Worse leukocytosis today 15.3. Continue Levaquin, monitor oxygenation. Follow-up sputum culture. Negative urine bacterial antigens. Pneumonia severity index risk class IV, initiate treatment in the hospital. DuoNebs. Budesonide. COVID-19 PCR negative. Abnormal D-dimer. No PE. Blood pressure noted somewhat soft in ER, low 100s systolic. Check serum cortisol. Denies aspiration, although does note some dysphagia which she states has managed well with taking her time and taking small bites/sips. Follow-up clinical condition. Consider further evaluation. 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 Smoking addiction: Encourage cessation. Nicotine replacement. Anxiety depression COPD: Duo nebs, budesonide GERD HLD Other chronic problems noted. Attestations Medical Necessity Statement*: Continue hospitalization for assessment of management of pneumonia with high risk severity index, so far without significant improvement, with worsening leukocytosis and lady of advanced age with underlying malignancy. Coding Level of Care Code Acute Level Vial Grinder for Wilfrid Lorenzana Diagnoses Pneumonia J18.9
[2021-12-31] MEDS: cyclobenzaprine 10 mg Tablet PO (20:40)
[2021-12-31] MEDS: acetaminophen 325 mg Tablet 650 MG PO (20:41)
[2022-01-01] VITALS (7 sets, daily range): BP systolic 107–135; BP diastolic 72–82; PULSE 89–109; RESP 16–18; TEMP 36.7–37.1; O2SAT 93–99
[2022-01-01] MEDS: docusate sodium 100 mg Capsule PO (00:23)
[2022-01-01 05:05] LABS: Basophils % 0.3 %; Eosinophils # 0.1 10^3/uL (0.0-0.8); Eosinophils % 1.1 %; Hematocrit 34.9 % (37.0-47.0); Hemoglobin 11.7 g/dL (11.5-15.3); Lymphocytes # 0.8 10^3/uL (0.8-4.8); Lymphocytes % 7.4 %; Mean Corpuscular HGB Conc 33.5 g/dL (30.0-36.0); Mean Corpuscular Hemoglobin 29.7 pg (28.0-34.0); Mean Corpuscular Volume 88.6 fl (81-99); Mean Platelet Volume 9.3 fL (7.4-10.4); Monocytes # 0.2 10^3/uL (0.2-0.9); Monocytes % 2.1 %; Neutrophils % 88.5 %; Nucleated Red Blood Cells % 0 %; Platelet Count 230 10^3/cmm (130-400); Red Blood Count 3.94 10^6/uL (4.1-5.3); Red Cell Distribution Width 13.7 % (12.1-15.1)
[2022-01-01 05:25] LABS: Alanine Aminotransferase 20 U/L (0-33); Albumin Level 3.3 g/dL (3.5-5.2); Alkaline Phosphatase 99 U/L (35-105); Anion Gap 14.1 (5-19); Aspartate Amino Transferase 18 U/L (0-32); Blood Urea Nitrogen 15 mg/dL (8-23); Calcium 8.9 mg/dL (8.5-10.5); Carbon Dioxide 21 mmol/L (22-29); Chloride 95 mmol/L (98-107); Globulin 3.8 g/dL (1.3-4.6); Glucose 99 mg/dL (65-115); Osmolality Calculated 263 mOsm/kg (285-295); Potassium 4.1 mmol/L (3.5-5.1); Sodium 126 mmol/L (136-145); Total Bilirubin 0.4 mg/dL (0.15-1.2); Total Protein 7.1 g/dL (6.6-8.7)
[2022-01-01] MEDS: budesonide 0.5 mg/2 mL Neb 0.25 MG INHALATION (07:41)
[2022-01-01] MEDS: ipratropium-albuterol 3 mL Neb INHALATION (07:41)
[2022-01-01] MEDS: guaiFENesin 600 mg Tablet PO (08:17)
[2022-01-01] MEDS: chlorhexidine gluconate 0.12% Btl 473 mL 15 ML MUCOUS MEM (08:17)
[2022-01-01] MEDS: methylphenidate 10 mg Tablet 5 MG PO (08:18)
[2022-01-01] MEDS: pantoprazole DR 40 mg Tablet PO (08:18)
--- NOTE | 2022-01-01 12:44 | P.DS_ITS ---
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 At home was having chills.? Some nausea.? In ER with sinus tachycardia 108 bpm.? Low-grade temp 99.8.? No leukocytosis.? Chest x-ray with right middle lobe pneumonia, right upper lobe parenchymal density cannot rule out pneumonia.? COVID-19 PCR is negative.? She received Levaquin in ER and hospitalization is requested due to her risk profile. She denies cough with food or drink, although does have some mild dysphagia, states has to take her time with food and drinks, takes only small bites, sips at a time.? Denies any aspiration. Hospital Course Hospital Course Patient was admitted to hospital further evaluation and management of pneumonia due to high pneumonia severity index. She was started on IV antibiotics along with inhalation treatment. On admissions patient's blood pressures were slightly soft. She responded well to the treatment and has remained hemodynamically stable and on room air since admission. Her leukocytosis also started to resolve. During hospitalization her culture results remain negative. She has been discharged hemodynamically stable condition on oral Levaquin and doxycycline to finish a 5-day course. Physical Exam Const: COMMON NORMALS: patient oriented x3 and alert GENERAL APPEARANCE: cooperative ORIENTATION/CONSCIOUSNESS: Yes awake HENMT: COMMON NORMALS: oropharynx normal Neck/C-Spine: COMMON NORMALS: no JVD Resp: COMMON NORMALS: normal respiratory effort and clear to auscultation bilaterally AUSCULTATION: clear to auscultation bilaterally and crackles Laterality: right Cardio: COMMON NORMALS: no JVD, regular rhythm, S1 normal heart sound present, S2 normal heart sound present and No murmurs present (Cardio) RATE: tachycardic RHYTHM: regular rhythm HEART SOUNDS: S1 normal heart sound present and S2 normal heart sound present GI: COMMON NORMALS: Normal to inspection, nondistended, normoactive bowel sounds present, Soft to palpation and non-tender PALPATION: Yes Soft to palpation Extremity: COMMON NORMALS: no joint enlargement and no pedal edema Neuro: COMMON NORMALS: patient oriented x3 and moves all extremities SENSORIUM/ORIENTATION: Yes alert Skin: COMMON NORMALS: no rashes or lesions noted GENERAL SKIN EXAM: no rashes or lesions noted Discharge Data Studies Completed and Pending Completed Studies During Hospitalization Category Date Time Status CTA chest [CT angio chest PE protcl [id number]] Routine Cat Scan 12/30/21 16:17 Completed XR chest 2V* [id number] Stat Exams 12/30/21 12:07 Completed Pending at discharge Category Date Time Status Blood Culture Stat Lab 12/30/21 13:37 Results Complete Blood Count w/Auto AM LABS Lab 01/02/22 04:00 Ordered Comprehensive Metabolic Panel AM LABS Lab 01/02/22 04:00 Ordered Sputum Culture and Gram Stain Routine Lab 12/31/21 05:10 Results Radiology Impressions Chest X-Ray 12/30/21 12:07 IMPRESSION: 1. Right middle lobe pneumonia 2. Right upper lobe parenchymal density rule out pneumonia Chest CTA 12/30/21 16:17 IMPRESSION: 1. Negative for pulmonary embolus. 2. Patchy right lung airspace infiltrates. 3. Thyroid isthmus 16 mm somewhat complicated cyst, similar to prior exam, nonemergent thyroid ultrasound could further evaluate this. 4. Multiple enlarged mediastinal lymph nodes measuring up to 27 mm in the precarinal area, somewhat similar to prior exam, concerning for a malignant process. 5. Trace pericardial effusion. 6. Coronary artery atherosclerotic calcification. 7. Moderate right pleural effusion. 8. Cholecystectomy. 9. Left kidney nonobstructive calyceal stone. 10. Minimal diverticulosis without diverticulitis suspected. 11. Emphysematous changes. 12. Left lower lobe 7.8 mm pulmonary nodule appears somewhat more focal compared to prior exam. Please refer to prior PET-CT report from 11/11/2021 for further discussion. Laboratory Results WBC 11.0 10^3/uL (4.0-10.0) H 01/01/22 04:41 RBC 3.94 10^6/uL (4.1-5.3) L 01/01/22 04:41 Hgb 11.7 g/dL (11.5-15.3) 01/01/22 04:41 Hct 34.9 % (37.0-47.0) L 01/01/22 04:41 MCV 88.6 fl (81-99) 01/01/22 04:41 MCH 29.7 pg (28.0-34.0) 01/01/22 04:41 MCHC 33.5 g/dL (30.0-36.0) 01/01/22 04:41 RDW 13.7 % (12.1-15.1) 01/01/22 04:41 Plt Count 230 10^3/cmm (130-400) 01/01/22 04:41 MPV 9.3 fL (7.4-10.4) 01/01/22 04:41 Neut % (Auto) 88.5 % 01/01/22 04:41 Lymph % (Auto) 7.4 % 01/01/22 04:41 [place] % (Auto) 2.1 % 01/01/22 04:41 Eos % (Auto) 1.1 % 01/01/22 04:41 Baso % (Auto) 0.3 % 01/01/22 04:41 Neut # (Auto) 9.70 10^3/uL (1.8-7.7) H 01/01/22 04:41 Lymph # (Auto) 0.8 10^3/uL (0.8-4.8) 01/01/22 04:41 [place] # (Auto) 0.2 10^3/uL (0.2-0.9) 01/01/22 04:41 Eos # (Auto) 0.1 10^3/uL (0.0-0.8) 01/01/22 04:41 Baso # (Auto) 0.0 10^3/uL (0.0-0.1) 01/01/22 04:41 Nucleated RBC % (auto) 0 % 01/01/22 04:41 Nucleated RBCs # 0.0 /100WBC 01/01/22 04:41 D-Dimer 1.71 ug/mIFEU (0-0.59) H 12/30/21 13:27 Sodium 126 mmol/L (136-145) L 01/01/22 04:41 Potassium 4.1 mmol/L (3.5-5.1) 01/01/22 04:41 Chloride 95 mmol/L (98-107) L 01/01/22 04:41 Carbon Dioxide 21 mmol/L (22-29) L 01/01/22 04:41 Anion Gap 14.1 (5-19) 01/01/22 04:41 BUN 15 mg/dL (8-23) 01/01/22 04:41 Creatinine 0.7 mg/dL (0.5-0.9) 01/01/22 04:41 GFR Calculation Not Reportable 01/01/22 04:41 Glucose 99 mg/dL (65-115) 01/01/22 04:41 Calculated Osmolality 263 mOsm/kg (285-295) L 01/01/22 04:41 Lactate 2.1 mmol/L (0.5-2.2) 12/30/21 13:27 Calcium 8.9 mg/dL (8.5-10.5) 01/01/22 04:41 Total Bilirubin 0.4 mg/dL (0.15-1.2) 01/01/22 04:41 AST 18 U/L (0-32) 01/01/22 04:41 ALT 20 U/L (0-33) 01/01/22 04:41 Alkaline Phosphatase 99 U/L (35-105) 01/01/22 04:41 Total Protein 7.1 g/dL (6.6-8.7) 01/01/22 04:41 Albumin 3.3 g/dL (3.5-5.2) L 01/01/22 04:41 Globulin 3.8 g/dL (1.3-4.6) 01/01/22 04:41 Random Cortisol 20.65 ug/dL (2.47-19.5) H 12/30/21 17:25 Coronavirus 229E (PCR) Not detected (NOT DETECT) 12/30/21 12:37 SARS-CoV-2 (PCR) Not detected (NOT DETECT) 12/30/21 12:37 Vitals Last Vital Signs Temp 98.4 F 01/01/22 08:00 Pulse 99 01/01/22 08:00 Resp 18 01/01/22 08:00 BP 135/73 01/01/22 08:00 Pulse Ox 95 01/01/22 08:00 O2 Del Method 01/01/22 08:00 Discharge Plan Discharge Patient Disposition: Home Condition: Stable Prescriptions: New doxycycline hyclate 100 mg tablet 100 mg PO BID 5 Days Qty: 10 0RF levofloxacin 500 mg tablet 500 mg PO Q24H 3 Days Qty: 3 0RF Continued (DME) BD Luer-Patricia Syringe 3 mL 25 gauge x 1 syringe See Rx Instructions .ROUTE .MEDSUPPLY Qty: 1 Rx Instructions: As directed Mag 64 64 mg tablet,delayed release (DR/EC) 64 mg PO DAILY 30 Days Qty: 30 0RF omeprazole 20 mg capsule,delayed release(DR/EC) 20 mg PO DAILY 90 Days Qty: 90 1RF Rx Instructions: TAKE ONE CAPSULE BY MOUTH DAILY cyclobenzaprine 10 mg tablet 10 mg PO DAILY 90 Days Qty: 90 0RF Rx Instructions: TAKE 1 TABLET BY MOUTH DAILY NEEDED FOR MUSCLE SPASM diazepam 5 mg tablet 5 mg PO TID PRN (Reason: anxiety) 30 Days Qty: 90 0RF methylphenidate HCl [Ritalin] 5 mg tablet 5 mg PO DAILY 30 Days Qty: 30 0RF Incruse Ellipta 62.5 mcg/actuation blister with device 1 inh inhalation DAILY Qty: 30 0RF budesonide-formoterol [Symbicort] 160-4.5 mcg/actuation HFA aerosol inhaler 1 inh inhalation BID Qty: 10.2 0RF albuterol sulfate [ProAir HFA] 90 mcg/actuation HFA aerosol inhaler 2 inh inhalation Q6H PRN (Reason: Shortness Of Breath) Qty: 8.5 2RF Rx Instructions: USE 2 INHALATIONS EVERY 6 HOURS NEEDED FOR SHORTNESS OF BREATH chlorhexidine gluconate 0.12 % mouthwash 15 ml PO BID Qty: 15 0RF Rx Instructions: USE ONE-HALF OUNCE (15ML) BY MOUTH TWICE DAILY varenicline [Chantix] 1 mg tablet 1 mg PO DAILY 30 Days Qty: 30 0RF ICaps AREDS2 250 mg-200 unit -12.5 mg-1 mg capsule 1 cap PO DAILY mecobalamin (vitamin B12) 1,000 mcg tablet,chewable 1,000 mcg PO DAILY 90 Days Qty: 90 0RF loperamide [Imodium A-D] 2 mg capsule 2 mg PO Q6H PRN (Reason: loose stool) 15 Days Qty: 30 0RF guaifenesin [Mucinex] 600 mg tablet extended release 12hr 600 mg PO BID Qty: 60 0RF Rx Instructions: TAKE ONE TABLET BY MOUTH EVERY TWELVE HOURS FOR CONGESTION prochlorperazine maleate [Compazine] 10 mg tablet 10 mg PO Q4H PRN (Reason: Mild Nausea) Qty: 30 3RF lorazepam 1 mg tablet 0.5 - 1 mg PO Q6H PRN (Reason: Severe Nausea) Qty: 30 3RF fluticasone propionate 50 mcg/actuation spray,suspension 1 spray intranasal BID PRN (Reason: Nasal Congestion) Rx Instructions: ADMINISTER 1 SPRAY INTO EACH NOSTRIL TWICE DAILY Discharge Orders: Discharge Order (Routine); Ordered 01/01/22 Ordered By: Sunny Gardner Referrals: Katrina Angelo FNP [Nurse Practitioner] - 01/09/22 8:50 am (APPOINTMENT WITH DR BERNARDO) Discharge Diet: Regular Discharge Activity: Resume usual activity and Increase activity as tolerated Patient Instructions: Opioid Safety Activity Restrictions/Additional Instructions: You will be on 2 antibiotics going forward. Levaquin for 3 more days and doxycycline for 5 days. Please follow-up with a primary care provider within next 1 week and set ap pointment. Discharge Attestations Time Spent in Discharge Care*: greater than 30 min Specific Discharge Activities: educating patient, educating and/or supporting family/caregiver, discussing with patient case coordinator/social workers/dc planners, documenting/other paperwork and evaluating patient/reviewing data Status at Discharge: Cognitive status at discharge: cognitively intact , Behavioral status at discharge: cooperative , Functional status at discharge: independent ambulation , Overall status at discharge: patient is back to baseline Quality Metrics Clinical Quality Measures [ No reported AMI, CVA or VTE this stay] Coding Level of Care Code Acute Chg FW DC note Diagnoses Pneumonia J18.9
== END 2022-01-01 14:22 | disposition hospice, home (50) ==
LOC: ER 14:14 → MEDSURG 18:09
PROVIDERS: Admitting Provider Internal Medicine; Emergency Provider Emergency Medicine; PCP Family Medicine; Visit Provider Student in an Organized Health Care Education/Training Program
DX: J18.9 Pneumonia, unspecified organism (principal); C80.1 Malignant (primary) neoplasm, unspecified; C77.9 Secondary and unspecified malignant neoplasm of lymph node, unspecified; F17.210 Nicotine dependence, cigarettes, uncomplicated; F41.9 Anxiety disorder, unspecified; J44.9 Chronic obstructive pulmonary disease, unspecified; K21.9 Gastro-esophageal reflux disease without esophagitis; E78.5 Hyperlipidemia, unspecified; E78.00 Pure hypercholesterolemia, unspecified; F32.A Depression, unspecified
CPT/HCPCS: 36415; 71046; 71275; 80053; 82533; 83605; 85025; 85378; 86403; 87040; 87070; 87205; 87449; 87635; 93005; 94640; 96365; 96372; 99285; G0378; J1650; J1956; J7626; Q9967

== ENCOUNTER 2022-07-31 14:32 | Outpatient (CLI) | payer MEDICARE, MEDICAID, SELFPAY ==
--- NOTE | 2022-07-31 14:48 | MM_ITS ---
WS: [id number] BILATERAL 3D TOMOSYNTHESIS DIGITAL SCREENING MAMMOGRAPHY WITH CAD CLINICAL INFORMATION: SCREENING HISTORY: Screening mammogram. No current complaints. COMPARISON: December 15, 2019 TECHNIQUE: Bilateral CC and MLO views. FINDINGS: Scattered fibroglandular densities bilaterally. No suspicious focal mass, asymmetry, calcifications, or architectural distortion. No evidence of malignancy. Incidental punctate and lucent centered calci fications. MM/[place] [id number] IMPRESSION: BI-RADS: 2-Benign FOLLOW UP: 1 Year Follow-up Recommend return to annual screening mammography.
== END 2022-07-31 14:33 | disposition home or self-care (01) ==
PROVIDERS: PCP Family Medicine; Visit Provider Family Medicine
DX: Z12.31 Encounter for screening mammogram for malignant neoplasm of breast (principal)
CPT/HCPCS: 77063; 77067

== ENCOUNTER 2022-08-16 06:00 | Outpatient (RCR) | payer MEDICARE, MEDICAID, SELFPAY | END 2022-09-14 23:59 | disposition home or self-care (01) | LOC: WPT 06:00 | PROVIDERS: PCP Family Medicine; Visit Provider Family Medicine | DX: R29.6 Repeated falls (principal) | CPT/HCPCS: 97110; 97112; 97530 ==

== ENCOUNTER 2022-09-15 06:00 | Outpatient (RCR) | payer MEDICARE, MEDICAID, SELFPAY | END 2022-10-15 23:59 | disposition home or self-care (01) | LOC: WPT 06:00 | PROVIDERS: PCP Family Medicine; Visit Provider Family Medicine | DX: R29.6 Repeated falls (principal) | CPT/HCPCS: 97110; 97112; 97530 ==

== ENCOUNTER → 2022-10-10 11:32 | Outpatient (BNVA) | payer MEDICARE, MEDICAID, SELFPAY | PROVIDERS: PCP Family Medicine; Visit Provider Nurse Practitioner Family | DX: R53.1 Weakness (principal) | CPT/HCPCS: 74018; 80053; 81000; 85025 ==

== ENCOUNTER 2022-12-02 15:34 | Emergency (ER) | payer MEDICARE, MEDICAID, SELFPAY ==
[2022-12-02 15:55] VITALS: BP 131/84; PULSE 71; RESP 16; TEMP 36.5; O2SAT 95; BMI 18.8
[2022-12-02 17:43] LABS: Basophils % 0.4 %; Eosinophils # 0.1 10^3/uL (0.0-0.8); Eosinophils % 1.3 %; Hematocrit 38.7 % (36-47); Lymphocytes # 0.8 10^3/uL (0.8-4.8); Lymphocytes % 11.5 %; Mean Corpuscular HGB Conc 32.6 g/dL (30-55); Mean Corpuscular Hemoglobin 28.7 pg (27-33); Mean Corpuscular Volume 88.2 fl (85-98); Mean Platelet Volume 8.9 fL (7.4-10.4); Monocytes # 0.4 10^3/uL (0.2-0.9); Monocytes % 5.1 %; Neutrophils # 5.74 10^3/uL (1.8-7.7); Neutrophils % 81.4 %; Nucleated Red Blood Cells % 0 %; Platelet Count 252 10^3/cmm (157-399); Red Blood Count 4.39 10^6/uL (3.85-5.65); Red Cell Distribution Width 13.8 % (12.1-15.1); White Blood Count 7.05 10^3/uL (3.29-11.43)
[2022-12-02 17:56] LABS: Alanine Aminotransferase 17 U/L (0-33); Albumin Level 4.2 g/dL (3.5-5.2); Alkaline Phosphatase 113 U/L (35-105); Anion Gap 14.5 (5-19); Aspartate Amino Transferase 21 U/L (0-32); Blood Urea Nitrogen 9 mg/dL (8-23); Calcium 9.5 mg/dL (8.5-10.5); Carbon Dioxide 28 mmol/L (22-29); Chloride 96 mmol/L (98-107); Creatinine Clr Calc Pharmacy 46.7305; Globulin 4.2 g/dL (1.3-4.6); Glucose 77 mg/dL (65-115); Lipase 52 U/L (13-60); Osmolality Calculated 275 mOsm/kg (285-295); Potassium 4.5 mmol/L (3.5-5.1); Sodium 134 mmol/L (136-145); Total Bilirubin 0.2 mg/dL (0.15-1.2); Total Protein 8.4 g/dL (6.6-8.7)
[2022-12-02 17:58] VITALS: BP 164/80; PULSE 81; O2SAT 100
[2022-12-02 18:22] LABS: Add Urine Microscopic? YES; Bilirubin Urine Neg (Negative); Blood Urine Neg (Negative); Glucose Urine UA Norm (Normal); Ketones Urine 1+ (Negative); Leukocyte Esterase Urine 1+ (Negative); Nitrate Urine Negative (Negative); Protein Urine Neg (Negative); Urine Appearance Clear (CLEAR); Urine Color Yellow (Yellow); Urobilinogen Urine Norm (Negative); pH Urine 5 (5-7)
[2022-12-02 18:23] LABS: Add Urine Culture? Yes; Bacteria Urine TRACE /hpf; Squamous Epithelial Cell Urine RARE /hpf (0-5); WBC Urine 15-25 /hpf (0-5)
--- NOTE | 2022-12-02 18:26 | CTR_ITS ---
PROCEDURE INFORMATION: Exam: CT Abdomen And Pelvis Without Contrast Exam date and time: 12/02/2022 6:38 PM Age: 82 years old Clinical indication: Abdominal pain; Generalized; Prior surgery; Surgery date: 6+ months; Surgery type: Gb. Appy; Patient HX: Diffuse abd pain TECHNIQUE: Imaging protocol: Computed tomography of the abdomen and pelvis without contrast. Radiation optimization: All CT scans at this facility use at least one of these dose optimization techniques: automated exposure control; mA and/or kV adjustment per patient size (includes targeted exams where dose is matched to clinical indication); or iterative reconstruction. REPORTING DATA: Count of CT and Cardiac NM exams in prior 12 months: This patient has received [address] and 0 known cardiac nuclear medicine studies in the 12 months prior to the current study. COMPARISON: CT chest abdpel w/*[id number] 09/26/2021 12:32 PM RADIATION DOSE METRICS: Total DLP (mGy-cm): 368.89 FINDINGS: Lungs: Compressive atelectasis noted at the right lung base. Pleural spaces: Large right pleural effusion without evidence of loculation. Heart: Heart size is normal. Small pericardial effusion without chamber collapse, unchanged from prior exam. Liver: Normal configuration. Homogeneous parenchyma. Gallbladder and bile ducts: Prior cholecystectomy. No biliary tree dilation or high-density retained stones appreciated. Pancreas: Normal. No ductal dilation. Spleen: Normal. No splenomegaly. Adrenal glands: Normal configuration. Kidneys and ureters: No convincing renal calculi. No evidence of renal obstruction or ureteral calculus. Stomach and bowel: Postprandial stomach. Normal caliber small bowel. Distal colonic diverticulosis without evidence of acute diverticulitis. No bowel wall pneumatosis. There is mild mural thickening of the distal transverse, descending, and sigmoid colon. Appendix: Prior appendectomy. Intraperitoneal space: No free air. No significant fluid collection. Vasculature: Linear calcifications in each renal sinus are compelling for arterial calcification. Infrarenal abdominal aorta is ectatic measuring up to 2.4 cm. Moderate to heavy calcific plaque noted in each common and external iliac artery. No portal venous gas. Lymph nodes: No enlarged lymph nodes. Urinary bladder: Unremarkable as visualized. Reproductive: Atrophic uterus as expected. No adnexal masses. Bones/joints: Subjective bony demineralization. Rotatory levoscoliosis noted in the lumbar spine. No fracture or destructive bony lesion. Adequate spinal canal and neural foramina. Soft tissues: Unremarkable. CT/CT abdomen pelvis wo con [id number] IMPRESSION: Mild thickening of the distal colon may reflect colitis. Otherwise, no acute abnormality to explain patient's pain. No evidence of bowel or renal obstruction. Prior appendectomy and cholecystectomy
[2022-12-02 18:30] VITALS: BP 169/74; PULSE 86; O2SAT 99
--- NOTE | 2022-12-02 19:53 | ED_ITS ---
HPI - Abdominal Pain General: Chief Complaint: Abdominal Pain Stated Complaint: abd pain Time Seen by Provider: 12/02/22 17:12 History of Present Illness: 82 y/o with complex medical history including diverticulitis, COPD anxiety hyperlipidemia and GERD. History of chronic abdominal pain. She presents emergency room with family due to increased pain within the past few days. Martha rogers described the pain as cramping sensation with severity of 5 out of 10 mostly diffusely. Has some mild nausea and vomiting today but denies vomiting blood bloody stool. Associated Symptoms: Reports diarrhea, nausea and vomiting; Denies belching, bloating, chills, constipation, GI cramping, dysuria, excessive flatus, fever(s) and hematemesis Review of Systems General: Reports: 10 or more systems reviewed and unremarkable except in HPI and below Const: Denies: fever(s), chills, body aches, change in appetite, change in weight, fatigue, malaise or night sweats Card: Denies: chest pain, palpitations, irregular heart rhythm or edema Resp: Denies: dyspnea, productive cough, non-productive cough, wheezing, stridor, pain on inspiration or change in phlegm color GI: Reports: abdominal pain, nausea, vomiting and diarrhea; Denies: hematemesis, early satiety, constipation, bloating, GI cramping, belching or excessive flatus : Denies: flank pain, difficulty voiding, dysuria, urinary frequency, urinary urgency, urinary hesitancy, dribbling, nocturia or oliguria Neuro: Denies: headache(s), numbness in extremities, weakness in extremities, sensory changes, lack of coordination or difficulty walking Endo: Denies: polyuria, polydipsia, tired all the time, cold intolerance or excessive sweating Kailash/Lymph: Denies: easy bruising, easy bleeding, petechiae or purpura PFSH ED PFSH: Medical History Acute diverticulitis Acute sinusitis Adverse effect of drug or medicament Anxiety and depression Breast cancer screening by mammogram COPD (chronic obstructive pulmonary disease) Diverticulosis Environmental and seasonal allergies Fatigue GERD (gastroesophageal reflux disease) History of colonic polyps Hypercholesterolemia Multiple lung nodules 5mm right upper lobe 3mm right lower lob (CT ) Nicotine dependence, cigarettes, uncomplicated Pneumonia Vitamin B12 deficiency Vitamin D deficiency Weight loss Surgical History History of colon surgery Cecal repair following colonoscopy History of colonoscopy Multiple colonoscopy procedures History of neck surgery Removal of benign tumor from the right side of the neck/postauricular area Status post carpal tunnel release of both wrists Status post cholecystectomy (2014) Family History Brother Lung disease Other CAD (coronary artery disease) Cancer Denies family history of Diabetes Clotting disorder Dementia Hyperlipidemia Psychiatric illness Chronic kidney disease (CKD) Suicide Anesthesia complication Bleeding disorder Hypertension Stroke Social History Smoking and tobacco status: current every day smoker (1 ppd, smoked x 50+ years) cigarettes Packs smoked per day: 1 Years cigarettes smoked: 59 [ Other cigarette details: Started at age 22] Alcohol intake: never Substance/Drug Use: never Lives independently: Yes Household members: none Physical Exam Const: COMMON NORMALS: no acute distress, average body habitus, patient oriented x3, no limitations, healthy appearing, alert and well nourished HENMT: COMMON NORMALS: normocephalic, atraumatic, hearing grossly normal bilaterally, external ears normal, EAC's normal, TM's normal bilaterally, Normal external nose present, Normal nasal mucous membranes and turbinates present, moist oral mucous membranes, oropharynx normal, dentition normal and gingiva normal HEAD & SCALP: normocephalic and atraumatic NOSE: Normal external nose present and Normal nasal mucous membranes and turbinates present EXTERNAL EAR: Yes external ears normal EXTERNAL AUDITORY CANAL: EAC's normal TYMPANIC MEMBRANE: TM's normal bilaterally Neck/C-Spine: COMMON NORMALS: full ROM, no lymphadenopathy, supple, no meningeal signs, no JVD, Thyroid normal and No carotid bruits THYROID: Th yroid normal Chest: COMMONS NORMALS: normal inspection of the chest, normal palpation of entire chest wall, normal inspection of the breasts and normal palpation of the breasts Breast/axilla inspection: Yes normal inspection of the breasts BREAST/AXILLA PALPATION: Yes normal palpation of the breasts Resp: COMMON NORMALS: normal respiratory effort, No retractions, No use of accessory muscles, clear to auscultation bilaterally and percussion normal AUSCULTATION: clear to auscultation bilaterally PERCUSSION: percussion normal Cardio: COMMON NORMALS: no JVD GI: COMMON NORMALS: Soft to palpation and No hepatosplenomegaly present INSPECTION: Yes normal to inspection, No abdominal wall ecchymosis, No Abdominal wall edema and No GI ostomy present AUSCULTATION: Yes normoactive bowel sounds PALPATION: Yes Soft to palpation, Yes Tenderness to palpation present (GI) Details: LLQ, RLQ, LUQ and RUQ, Yes No hepatosplenomegaly present, No Hepatosplenomegaly present, No Hepatomegaly present, No Splenomegaly present, No Pulsatile mass present and No Ascites present Neuro: COMMON NORMALS: patient oriented x3 SENSORIUM/ORIENTATION: Yes alert MENINGEAL SIGNS: Yes no meningeal signs Skin: COMMON NORMALS: no rashes or lesions noted, no wounds, turgor normal, no jaundice, no petechiae and no mottling GENERAL SKIN EXAM: no rashes or lesions noted and turgor normal Course Vital Signs: Vital signs: Vital Signs Temperature 97.7 F 12/02/22 15:55 Pulse Rate 84 12/02/22 20:06 Respiratory Rate 18 12/02/22 20:06 Blood Pressure 158/84 12/02/22 20:06 Pulse Oximetry 93 12/02/22 20:06 Oxygen Delivery Me thod Room Air 12/02/22 20:06 MDM - Abdominal Pain Medical Decision Making Patient was made comfortable emergency room and had extensive work-up done including CBC, CMP UA and CT scan. I discussed the finding with family. Differential Diagnosis Likely abdominal pain, acute appendicitis, calculus of kidney, constipation, diverticulitis, endometriosis, gastroenteritis, pancreatitis and small bowel obstruction Lab Data 12/02/22 17:25 12/02/22 17:25 Labs/Radiology: Radiology Impressions Abdomen/Pelvis CT 12/02/22 18:26 IMPRESSION: Mild thickening of the distal colon may reflect colitis. Otherwise, no acute abnormality to explain patient's pain. No evidence of bowel or renal obstruction. Prior appendectomy and cholecystectomy Laboratory Results WBC 7.05 10^3/uL (3.29-11.43) 12/02/22 17:25 RBC 4.39 10^6/uL (3.85-5.65) 12/02/22 17:25 Hgb 12.60 g/dL (11.27-16.99) 12/02/22: Hct 38.7 % (36-47) 12/02/22: MCV 88.2 fl (85-98) 12/02/22 17: MCH 28.7 pg (27-33) 12/02/22: MCHC 32.6 g/dL (30-55) 12/02/22: RDW 13.8 % (12.1-15.1) 12/02/22: Plt Count 252 10^3/cmm (157-399) 12/02/22: MPV 8.9 fL (7.4-10.4) 12/02/22: Neut % (Auto) 81.4 % 12/02/22: Lymph % (Auto) 11.5 % 12/02/22: [place] % (Auto) 5.1 % 12/02/22: Eos % (Auto) 1.3 % 12/02/22: Baso % (Auto) 0.4 % 12/02/22: Neut # (Auto) 5.74 10^3/uL (1.8-7.7) 12/02/22: Lymph # (Auto) 0.8 10^3/uL (0.8-4.8) 12/02/22: [place] # (Auto) 0.4 10^3/uL (0.2-0.9) 12/02/22: Eos # (Auto) 0.1 10^3/uL (0.0-0.8) 12/02/22: Baso # (Auto) 0.0 10^3/uL (0.0-0.1) 12/02/22: Nucleated RBC % (auto) 0 % 12/02/22 Nucleated RBCs # 0.0 /100WBC 12/02/22 17: Sodium 134 mmol/L (136-145) L 12/02/22: Potassium 4.5 mmol/L (3.5-5.1) 12/02/22: Chloride 96 mmol/L (98-107) L 12/02/22 17:25 Carbon Dioxide 28 mmol/L (22-29) 12/02/22 17:25 Anion Gap 14.5 (5-19) 12/02/22 17:25 BUN 9 mg/dL (8-23) 12/02/22 17:25 Creatinine 0.7 mg/dL (0.5-0.9) 12/02/22 17:25 GFR Calculation Not Reportable 12/02/22 17:25 Glucose 77 mg/dL (65-115) 12/02/22 17:25 Calculated Osmolality 275 mOsm/kg (285-295) L 12/02/22 17:25 Calcium 9.5 mg/dL (8.5-10.5) 12/02/22 17:25 Total Bilirubin 0.2 mg/dL (0.15-1.2) 12/02/22 17:25 AST 21 U/L (0-32) 12/02/22 17:25 ALT 17 U/L (0-33) 12/02/22 17:25 Alkaline Phosphatase 113 U/L (35-105) H 12/02/22 17:25 Total Protein 8.4 g/dL (6.6-8.7) 12/02/22 17:25 Albumin 4.2 g/dL (3.5-5.2) 12/02/22 17:25 Globulin 4.2 g/dL (1.3-4.6) 12/02/22 17:25 Lipase 52 U/L (13-60) 12/02/22 17:25 Urine Color Yellow (Yellow) 12/02/22 18:02 Urine Appearance Clear (CLEAR) 12/02/22 18:02 Urine pH 5 (5-7) 12/02/22 18:02 Ur Specific [place] 1.010 (1.005-1.030) 12/02/22 18:02 Urine Protein Neg (Negative) 12/02/22 18:02 Urine Glucose (UA) Norm (Normal) 12/02/22 18:02 Urine Ketones 1+ (Negative) H 12/02/22 18:02 Urine Blood Neg (Negative) 12/02/22 18:02 Urine Nitrate Negative (Negative) 12/02/22 18:02 Urine Bilirubin Neg (Negative) 12/02/22 18:02 Urine Urobilinogen Norm mg/dL (Negative) 12/02/22 18:02 Ur Leukocyte Esterase 1+ (Negative) H 12/02/22 18:02 Urine RBC None /hpf (0-2) 12/02/22 18:02 Urine WBC 15-25 /hpf (0-5) H 12/02/22 18:02 Ur Squamous Epith Cells Rare /hpf (0-5) 12/02/22 18:02 Amorphous Sediment Not Reportable 12/02/22 18:02 Urine Bacteria Trace /hpf (NONE) 12/02/22 18:02 All radiology interpretation(s) finalized by discharge Discharge Plan Discharge Patient Disposition: Home Clinical Impression: Abdominal pain, Colitis Condition: Stable Prescriptions: New ondansetron HCl 4 mg tablet 4 mg PO Q6H Qty: 20 0RF metronidazole 500 mg tablet 500 mg PO BID 7 Days Qty: 14 0RF No Action pantoprazole [Protonix] 40 mg tablet,delayed release (DR/EC) 40 mg PO DAILY Qty: 30 1RF ondansetron HCl 4 mg tablet 4 mg PO Q8H PRN (Reason: nausea and vomiting) Qty: 10 0RF ICaps AREDS2 250 mg-200 unit -12.5 mg-1 mg capsule 1 cap PO DAILY diazepam 5 mg tablet 5 mg PO TID PRN (Reason: anxiety) 30 Days Qty: 90 2RF doxycycline hyclate 100 mg tablet 100 mg PO BID 5 Days Qty: 10 0RF cyclobenzaprine 10 mg tablet See Rx Instructions .ROUTE .COMPLEX Qty: 90 2RF Dose Instruction: TAKE 1 TABLET BY MOUTH EVERY DAY NEEDED FOR MUSCLE SPASM Rx Instructions: TAKE 1 TABLET BY MOUTH EVERY DAY NEEDED FOR MUSCLE SPASM albuterol sulfate [ProAir HFA] 90 mcg/actuation HFA aerosol inhaler 2 inh inhalation Q6H PRN (Reason: Shortness Of Breath) Qty: 8.5 2RF Rx Instructions: USE 2 INHALATIONS EVERY 6 HOURS NEEDED FOR SHORTNESS OF BREATH budesonide-formoterol [Symbicort] 160-4.5 mcg/actuation HFA aerosol inhaler See Rx Instructions .ROUTE .COMPLEX Qty: 10.2 2RF Dose Instruction: USE 1 INHALATION BY MOUTH TWICE DAILY Rx Instructions: USE 1 INHALATION BY MOUTH TWICE DAILY fluticasone propionate 50 mcg/actuation spray,suspension See Rx Instructions .ROUTE .COMPLEX Qty: 16 2RF Dose Instruction: ADMINISTER 1 SPRAY INTO EACH NOSTRIL TWICE DAILY Rx Instructions: ADMINISTER 1 SPRAY INTO EACH NOSTRIL TWICE DAILY guaifenesin [Mucinex] 600 mg tablet extended release 12hr See Rx Instructions .ROUTE .COMPLEX Qty: 60 0RF Dose Instruction: TAKE ONE TABLET BY MOUTH EVERY TWELVE HOURS FOR CONGSTION Rx Instructions: TAKE ONE TABLET BY MOUTH EVERY TWELVE HOURS FOR CONGSTION prenat.vits,gustabo,[id number] Tablet 1 tab PO DAILY Qty: 30 5RF Incruse Ellipta 62.5 mcg/actuation blister with device See Rx Instructions .ROUTE .COMPLEX Qty: 30 2RF Dose Instruction: USE 1 INHALATION BY MOUTH EVERY DAY Rx Instructions: USE 1 INHALATION BY MOUTH EVERY DAY methylphenidate HCl [Ritalin] 5 mg tablet 5 mg PO BID 30 Days Qty: 60 0RF levothyroxine 25 mcg tablet See Rx Instructions .ROUTE .COMPLEX Qty: 15 5RF Dose Instruction: TAKE ONE-HALF TABLET (12.5 MCG) BY MOUTH DAILY FOR 30 DAYS Rx Instructions: TAKE ONE-HALF TABLET (12.5 MCG) BY MOUTH DAILY FOR 30 DAYS chlorhexidine gluconate 0.12 % mouthwash See Rx Instructions .ROUTE .COMPLEX Qty: 473 2RF Dose Instruction: USE ONE-HALF OUNCE (15 ML) BY MOUTH TWICE DAILY Rx Instructions: USE ONE-HALF OUNCE (15 ML) BY MOUTH TWICE DAILY Discharge Orders: Discharge ED (Routine); Ordered 12/02/22 Ordered By: Tommy Schuster Referrals: Kamran Peralta MD [Primary Care Provider] - Discharge Diet: Advance as tolerated Discharge Activity: Resume usual activity Patient Instructions: Abdominal Pain (ED), Opioid Safety, Pain Management Coding Level of Care Code ED Supervisor Customer Complaint Service for Wilfrid Lorenzana
[2022-12-02 20:06] VITALS: BP 158/84; PULSE 84; RESP 18; O2SAT 93
[2022-12-02] MEDS: metoclopramide 5 mg/mL SDV 2 mL IVP (21:03)
[2022-12-02 21:04] VITALS: RESP 14; O2SAT 98
[2022-12-02] MEDS: morphine 4 mg/mL SDV 1 mL 2 MG IVP (21:04)
[2022-12-02 21:12] VITALS: PULSE 84; RESP 18
--- NOTE | 2022-12-03 03:24 | PC.NURSE ---
Morphine 2 mg was administered to patient. Waste of 2 mg was discarded into sharps container in room. Attempted to waste in pyxis later and was no longer able to waste. Graham in pharmacy was called and informed of this.
== END 2022-12-02 21:13 | disposition home or self-care (01) ==
PROVIDERS: Emergency Medicine; Emergency Provider Family Medicine; PCP Family Medicine
DX: K52.9 Noninfective gastroenteritis and colitis, unspecified (principal); F17.210 Nicotine dependence, cigarettes, uncomplicated; J44.9 Chronic obstructive pulmonary disease, unspecified
CPT/HCPCS: 36415; 74176; 80053; 81001; 83690; 85025; 87086; 96374; 96375; 99285; J2270; J2765

== ENCOUNTER 2022-12-04 17:07 | Inpatient (IN) | payer MEDICARE, MEDICAID, SELFPAY ==
[2022-12-04] VITALS (13 sets, daily range): BP systolic 94–160; BP diastolic 62–100; PULSE 80–96; RESP 14–23; TEMP 36.6–37.2; O2SAT 91–100; BMI 19.7
--- NOTE | 2022-12-04 17:41 | W.ED.ABDPA2 ---
HPI - Abdominal Pain General: Chief Complaint: Abdominal Pain Stated Complaint: was here saturday no better Time Seen by Provider: 12/04/22 17:30 Source: patient and family Mode of arrival: wheelchair Limitations: no limitations History of Present Illness: Patient is a nice 82-year-old female who presents to ED today along with family for complaints of worsening abdominal pain. Patient states she was seen here 2 days ago and diagnosed with colitis. She states she was placed on Flagyl and Zofran. She states her abdominal pain continues to worsen and continues to have nausea and vomiting. Family is worried as she has not been able to eat anything secondary to the pain. They report decreased urine output and worry about dehydration. She is not running fevers. She has not noticed any blood to her emesis. She is still passing flatulence. She states her last bowel movement was yesterday. Of note patient has untreated small cell carcinoma (met with Dr. De León and given treatment options to which she declined). Family worries about her progressive weight loss and weakness. MD elicited complaint: abdominal pain Onset (ago): day(s) Pain Consistency: constant Location: Diffuse Severity: severe Quality: cramping Radiation: none Migration to: no migration Exacerbating factors: eating Relieving factors: nothing Associated Symptoms: Reports nausea, vomiting and other (reports chronic alternation of diarrhea/constipation); Denies chills, dysuria, fever(s), hematochezia, hematuria, hematemesis and melena Related Data: Patient : No Review of Systems Const: Denies: fever(s), chills, body aches, fatigue or malaise Card: Denies: chest pain Resp: Denies: dyspnea GI: Reports: abdominal pain, nausea, vomiting and other (reports chronic alternation of diarrhea/constipation); Denies: hematemesis, hematochezia or melena : Reports: other (reports decreased urine output); Denies: flank pain, dysuria or hematuria Musc: Denies: neck pain, back pain, extremity pain or joint pain Skin/Breast: Denies: rash Neuro: Denies: headache(s), numbness in extremities, weakness in extremities, sensory changes or dizziness PFS ED PFSH: Medical History Acute diverticulitis Acute sinusitis Adverse effect of drug or medicament Anxiety and depression Breast cancer screening by mammogram COPD (chronic obstructive pulmonary disease) Diverticulosis Environmental and seasonal allergies Fatigue GERD (gastroesophageal reflux disease) History of colonic polyps Hypercholesterolemia Multiple lung nodules 5mm right upper lobe 3mm right lower lob (CT -2018) Nicotine dependence, cigarettes, uncomplicated Pneumonia Vitamin B12 deficiency Vitamin D deficiency Weight loss Surgical History History of colon surgery Cecal repair following colonoscopy History of colonoscopy Multiple colonoscopy procedures History of neck surgery Removal of benign tumor from the right side of the neck/postauricular area Status post carpal tunnel release of both wrists Status post cholecystectomy (2014) Family History Brother Lung disease Other CAD (coronary artery disease) Cancer Denies family history of Diabetes Clotting disorder Dementia Hyperlipidemia Psychiatric illness Chronic kidney disease (CKD) Suicide Anesthesia complication Bleeding disorder Hypertension Stroke Social History Smoking and tobacco status: current every day smoker (1 ppd, smoked x 50+ years) cigarettes Packs smoked per day: 1 Years cigarettes smoked: 59 [ Other cigarette details: Started at age 22] Alcohol intake: never Substance/Drug Use: never Lives independently: Yes Household members: none Physical Exam Const: COMMON NORMALS: no acute distress, patient oriented x3, no limitations and alert GENERAL APPEARANCE: cooperative NUTRITIONAL APPEARANCE: thin ORIENTATION/CONSCIOUSNESS: Yes awake, Yes oriented to person, Yes oriented to place and Yes oriented to time Eye: COMMON NORMALS: no scleral icterus Resp: COMMON NORMALS: normal respiratory effort and clear to auscultation bilaterally AUSCULTATION: clear to auscultation bilaterally Cardio: COMMON NORMALS: regular rate and regular rhythm RATE: regular rate RHYTHM: regular rhythm GI: INSPECTION: Yes normal to inspection AUSCULTATION: Yes Hyperactive bowel sounds present PALPATION: Yes Tenderness to palpation present (GI) (diffusely but more so to lower abdomen), No Guarding due to palpation present (GI) and No Rigid due to palpation : COMMON NORMALS: Yes no CVA tenderness BLADDER/KIDNEY EXAM: Yes no CVA tenderness Back/Pelvis: COMMON NORMALS: no CVA tenderness Extremity: COMMON NORMALS: normal to inspection, no clubbing, cyanosis or edema and no pedal edema GENERAL: Yes normal exam except as noted Neuro: COMMON NORMALS: patient oriented x3, moves all extremities, no focal motor deficits and no sensory deficits noted SENSORIUM/ORIENTATION: Yes alert, Yes oriented to person, Yes oriented to place and Yes oriented to time Skin: COMMON NORMALS: no rashes or lesions noted GENERAL SKIN EXAM: no rashes or lesions noted Course Consultations: Consultation #1: Dr. Ray?accepts admission Vital Signs: Vital signs: Vital Signs Temperature 98.9 F 12/04/22 17:23 Pulse Rate 84 12/04/22 18:20 Respiratory Rate 19 H 12/04/22 21:51 Blood Pressure 122/66 12/04/22 18:20 Pulse Oximetry 100 12/04/22 21:51 Oxygen Delivery Me thod Room Air 12/04/22 18:20 MDM - Abdominal Pain Medical Decision Making Patient here with progressive/worsening abdominal pain after being diagnosed with colitis 2 days ago. She was placed on Flagyl and Zofran and does not feel like symptoms are improving. Family states she is not able to eat or drink anything and is significantly weak because of this. She lives alone and family states she is unable to care for herself. She does have untreated small cell carcinoma. CT imaging shows stable findings with her diagnosis of colitis. There were chronic findings including right-sided pleural effusion/pericardial effusion most likely from known carcinoma. Discussed case with Dr. Ray who was agreeable to admission. Lab Data 12/04/22 17:54 12/04/22 17:54 Labs/Radiology: Radiology Impressions Abdomen/Pelvis CT 12/04/22 17:48 IMPRESSION: 1. Stable exam with findings of colitis. 2. Additional chronic and incidental findings as above, to include moderate to large right pleural effusion, atherosclerosis, and colonic diverticulosis. Laboratory Results WBC 5.45 10^3/uL (3.29-11.43) 12/04/22 17:54 RBC 3.95 10^6/uL (3.85-5.65) 12/04/22 17:54 Hgb 11.20 g/dL (11.27-16.99) L 12/04/22 17:54 Hct 35.5 % (36-47) L 12/04/22 17:54 MCV 89.9 fl (85-98) 12/04/22 17:54 MCH 28.4 pg (27-33) 12/04/22 17:54 MCHC 31.5 g/dL (30-55) 12/04/22 17:54 RDW 13.8 % (12.1-15.1) 12/04/22 17:54 Plt Count 217 10^3/cmm (157-399) 12/04/22 17:54 MPV 9.1 fL (7.4-10.4) 12/04/22 17:54 Neut % (Auto) 80.0 % 12/04/22 17:54 Lymph % (Auto) 11.2 % 12/04/22 17:54 [place] % (Auto) 5.5 % 12/04/22 17:54 Eos % (Auto) 2.2 % 12/04/22 17:54 Baso % (Auto) 0.7 % 12/04/22 17:54 Neut # (Auto) 4.36 10^3/uL (1.8-7.7) 12/04/22 17:54 Lymph # (Auto) 0.6 10^3/uL (0.8-4.8) L 12/04/22 17:54 [place] # (Auto) 0.3 10^3/uL (0.2-0.9) 12/04/22 17:54 Eos # (Auto) 0.1 10^3/uL (0.0-0.8) 12/04/22 17:54 Baso # (Auto) 0.0 10^3/uL (0.0-0.1) 12/04/22 17:54 Nucleated RBC % (auto) 0 % 12/04/22 17:54 Nucleated RBCs # 0.0 /100WBC 12/04/22 17:54 Sodium 134 mmol/L (136-145) L 12/04/22 17:54 Potassium 4.1 mmol/L (3.5-5.1) 12/04/22 17:54 Chloride 96 mmol/L (98-107) L 12/04/22 17:54 Carbon Dioxide 30 mmol/L (22-29) H 12/04/22 17:54 Anion Gap 12.1 (5-19) 12/04/22 17:54 BUN 13 mg/dL (8-23) 12/04/22 17:54 Creatinine 0.9 mg/dL (0.5-0.9) 12/04/22 17:54 GFR Calculation Not Reportable 12/04/22 17:54 Glucose 104 mg/dL (65-115) 12/04/22 17:54 Calculated Osmolality 278 mOsm/kg (285-295) L 12/04/22 17:54 Lactic Acid 1.1 mmol/L (0.5-2.2) 12/04/22 17:54 Calcium 9.2 mg/dL (8.5-10.5) 12/04/22 17:54 Total Bilirubin 0.2 mg/dL (0.15-1.2) 12/04/22 17:54 AST 33 U/L (0-32) H 12/04/22 17:54 ALT 47 U/L (0-33) H 12/04/22 17:54 Alkaline Phosphatase 118 U/L (35-105) H 12/04/22 17:54 Total Protein 7.2 g/dL (6.6-8.7) 12/04/22 17:54 Albumin 3.8 g/dL (3.5-5.2) 12/04/22 17:54 Globulin 3.4 g/dL (1.3-4.6) 12/04/22 17:54 Lipase 46 U/L (13-60) 12/04/22 17:54 Urine Color Yellow (Yellow) 12/04/22 20:20 Urine Appearance Clear (CLEAR) 12/04/22 20:20 Urine pH 5 (5-7) 12/04/22 20:20 Ur Specific [place] 1.015 (1.005-1.030) 12/04/22 20:20 Urine Protein Neg (Negative) 12/04/22 20:20 Urine Glucose (UA) Norm (Normal) 12/04/22 20:20 Urine Ketones Negative (Negative) 12/04/22 20:20 Urine Blood Neg (Negative) 12/04/22 20:20 Urine Nitrate Negative (Negative) 12/04/22 20:20 Urine Bilirubin Neg (Negative) 12/04/22 20:20 Urine Urobilinogen Norm mg/dL (Negative) 12/04/22 20:20 Ur Leukocyte Esterase Negative (Negative) 12/04/22 20:20 All radiology interpretation(s) finalized by discharge Discharge Plan Discharge Patient Disposition: Admitted As Inpatient Clinical Impression: Colitis, Weakness, Small cell carcinoma Condition: Stable Prescriptions: No Action pantoprazole [Protonix] 40 mg tablet,delayed release (DR/EC) 40 mg PO DAILY Qty: 30 1RF ondansetron HCl 4 mg tablet 4 mg PO Q8H PRN (Reason: nausea and vomiting) Qty: 10 0RF ICaps AREDS2 250 mg-200 unit -12.5 mg-1 mg capsule 1 cap PO DAILY diazepam 5 mg tablet 5 mg PO TID PRN (Reason: anxiety) 30 Days Qty: 90 2RF doxycycline hyclate 100 mg tablet 100 mg PO BID 5 Days Qty: 10 0RF cyclobenzaprine 10 mg tablet See Rx Instructions .ROUTE .COMPLEX Qty: 90 2RF Dose Instruction: TAKE 1 TABLET BY MOUTH EVERY DAY NEEDED FOR MUSCLE SPASM Rx Instructions: TAKE 1 TABLET BY MOUTH EVERY DAY NEEDED FOR MUSCLE SPASM albuterol sulfate [ProAir HFA] 90 mcg/actuation HFA aerosol inhaler 2 inh inhalation Q6H PRN (Reason: Shortness Of Breath) Qty: 8.5 2RF Rx Instructions: USE 2 INHALATIONS EVERY 6 HOURS NEEDED FOR SHORTNESS OF BREATH budesonide-formoterol [Symbicort] 160-4.5 mcg/actuation HFA aerosol inhaler See Rx Instructions .ROUTE .COMPLEX Qty: 10.2 2RF Dose Instruction: USE 1 INHALATION BY MOUTH TWICE DAILY Rx Instructions: USE 1 INHALATION BY MOUTH TWICE DAILY fluticasone propionate 50 mcg/actuation spray,suspension See Rx Instructions .ROUTE .COMPLEX Qty: 16 2RF Dose Instruction: ADMINISTER 1 SPRAY INTO EACH NOSTRIL TWICE DAILY Rx Instructions: ADMINISTER 1 SPRAY INTO EACH NOSTRIL TWICE DAILY guaifenesin [Mucinex] 600 mg tablet extended release 12hr See Rx Instructions .ROUTE .COMPLEX Qty: 60 0RF Dose Instruction: TAKE ONE TABLET BY MOUTH EVERY TWELVE HOURS FOR CONGSTION Rx Instructions: TAKE ONE TABLET BY MOUTH EVERY TWELVE HOURS FOR CONGSTION prenat.vits,gustabo,[id number] Tablet 1 tab PO DAILY Qty: 30 5RF Incruse Ellipta 62.5 mcg/actuation blister with device See Rx Instructions .ROUTE .COMPLEX Qty: 30 2RF Dose Instruction: USE 1 INHALATION BY MOUTH EVERY DAY Rx Instructions: USE 1 INHALATION BY MOUTH EVERY DAY methylphenidate HCl [Ritalin] 5 mg tablet 5 mg PO BID 30 Days Qty: 60 0RF levothyroxine 25 mcg tablet See Rx Instructions .ROUTE .COMPLEX Qty: 15 5RF Dose Instruction: TAKE ONE-HALF TABLET (12.5 MCG) BY MOUTH DAILY FOR 30 DAYS Rx Instructions: TAKE ONE-HALF TABLET (12.5 MCG) BY MOUTH DAILY FOR 30 DAYS chlorhexidine gluconate 0.12 % mouthwash See Rx Instructions .ROUTE .COMPLEX Qty: 473 2RF Dose Instruction: USE ONE-HALF OUNCE (15 ML) BY MOUTH TWICE DAILY Rx Instructions: USE ONE-HALF OUNCE (15 ML) BY MOUTH TWICE DAILY ondansetron HCl 4 mg tablet 4 mg PO Q6H Qty: 20 0RF metronidazole 500 mg tablet 500 mg PO BID 7 Days Qty: 14 0RF Referrals: Kamran Peralta MD [Primary Care Provider] - Coding Level of Care Code ED Online Content Developer for Wilfrid Lorenzana
--- NOTE | 2022-12-04 17:48 | CTR_ITS ---
PROCEDURE INFORMATION: Exam: CT Abdomen And Pelvis Without Contrast Exam date and time: 12/04/2022 6:37 PM Age: 82 years old Clinical indication: Abdominal pain; Generalized; Prior surgery; Surgery date: 6+ months; Surgery type: Appy, vivien; Additional info: Abdominal pain, n/v, patient states iodine contrast gives her hives and blisters that last for TECHNIQUE: Imaging protocol: Computed tomography of the abdomen and pelvis without contrast. Radiation optimization: All CT scans at this facility use at least one of these dose optimization techniques: automated exposure control; mA and/or kV adjustment per patient size (includes targeted exams where dose is matched to clinical indication); or iterative reconstruction. REPORTING DATA: Count of CT and Cardiac NM exams in prior 12 months: This patient has received 2 known CTs and 0 known cardiac nuclear medicine studies in the 12 months prior to the current study. COMPARISON: 1. CT abdomen pelvis wo con [id number] 12/02/2022 6:[address] chest abdpel w/*[id number] 09/26/2021 12:[address] chest abdpel w/*[id number] 07/18/2021 12:15 PM RADIATION DOSE METRICS: Total DLP (mGy-cm): 338 FINDINGS: Lungs: Bibasilar subsegmental atelectasis and/or scarring. Pleural spaces: Moderate to large right pleural effusion redemonstrated. Heart: Minimal pericardial effusion. Liver: Normal without focal lesions. Gallbladder and bile ducts: Prior cholecystectomy without biliary ductal dilatation. Pancreas: Normal without ductal dilatation. Spleen: Normal. Adrenal glands: Normal. No mass. Kidneys and ureters: Bilateral renal calcifications are likely vascular. Otherwise unremarkable. Stomach and bowel: No obstruction. Colonic diverticulosis. Wall thickening and subtle pericolonic fat stranding along the distal transverse, descending and proximal sigmoid colon. Appendix: Surgically absent. Intraperitoneal space: No free air, free fluid, or well-organized fluid collection. Vasculature: Heavy systemic atherosclerotic calcification. Fusiform infrarenal abdominal aorta dilatation measuring 2.7 cm, stable from July 2021. Lymph nodes: No enlarged lymph nodes. Urinary bladder: Urinary bladder is unremarkable. Reproductive: Unremarkable as visualized. Bones/joints: No acute fracture. Mild dextroconvex thoracolumbar spine curvature. Mild degenerative changes along the spine with trace retrolisthesis of L2 on L3 and L3 on L4. Soft tissues: Bilateral buttock subcutaneous calcified granulomata. CT/CT abdomen pelvis wo con [id number] IMPRESSION: 1. Stable exam with findings of colitis. 2. Additional chronic and incidental findings as above, to include moderate to large right pleural effusion, atherosclerosis, and colonic diverticulosis.
[2022-12-04 18:01] LABS: Basophils % 0.7 %; Eosinophils # 0.1 10^3/uL (0.0-0.8); Eosinophils % 2.2 %; Hematocrit 35.5 % (36-47); Lymphocytes # 0.6 10^3/uL (0.8-4.8); Lymphocytes % 11.2 %; Mean Corpuscular HGB Conc 31.5 g/dL (30-55); Mean Corpuscular Hemoglobin 28.4 pg (27-33); Mean Corpuscular Volume 89.9 fl (85-98); Mean Platelet Volume 9.1 fL (7.4-10.4); Monocytes # 0.3 10^3/uL (0.2-0.9); Monocytes % 5.5 %; Neutrophils # 4.36 10^3/uL (1.8-7.7); Nucleated Red Blood Cells % 0 %; Platelet Count 217 10^3/cmm (157-399); Red Blood Count 3.95 10^6/uL (3.85-5.65); Red Cell Distribution Width 13.8 % (12.1-15.1); White Blood Count 5.45 10^3/uL (3.29-11.43)
[2022-12-04] MEDS: sodium chloride 0.9% 1,000 ML 999 ML IV (18:16)
[2022-12-04] MEDS: morphine 4 mg/mL SDV 1 mL IVP (18:18)
[2022-12-04 18:29] LABS: Alanine Aminotransferase 47 U/L (0-33); Albumin Level 3.8 g/dL (3.5-5.2); Alkaline Phosphatase 118 U/L (35-105); Anion Gap 12.1 (5-19); Aspartate Amino Transferase 33 U/L (0-32); Blood Urea Nitrogen 13 mg/dL (8-23); Calcium 9.2 mg/dL (8.5-10.5); Carbon Dioxide 30 mmol/L (22-29); Chloride 96 mmol/L (98-107); Globulin 3.4 g/dL (1.3-4.6); Glucose 104 mg/dL (65-115); Lipase 46 U/L (13-60); Osmolality Calculated 278 mOsm/kg (285-295); Potassium 4.1 mmol/L (3.5-5.1); Sodium 134 mmol/L (136-145); Total Bilirubin 0.2 mg/dL (0.15-1.2); Total Protein 7.2 g/dL (6.6-8.7)
[2022-12-04 18:30] LABS: Lactic Sepsis W/Reflex 1.1 mmol/L (0.5-2.2)
[2022-12-04] MEDS: fentaNYL 50 mcg/mL INJ 2mL 25 MCG IVP ×2 (19:13→21:51)
[2022-12-04 20:27] LABS: Add Urine Microscopic? NO; Charge for UA Resulting for Rev
[2022-12-04 20:35] LABS: Specific Gravity, Urine 1.015 (1.005-1.030); Urine Appearance Clear (CLEAR); Urine Color Yellow (Yellow); pH Urine 5 (5-7)
[2022-12-04 20:36] LABS: Bilirubin Urine Neg (Negative); Blood Urine Neg (Negative); Glucose Urine UA Norm (Normal); Ketones Urine Negative (Negative); Leukocyte Esterase Urine Negative (Negative); Nitrate Urine Negative (Negative); Protein Urine Neg (Negative); Urobilinogen Urine Norm (Negative)
[2022-12-04] MEDS: piperacillin-tazobactam 3.375 GM in sodium chloride 0.9% (plus) 50 ML IV (22:01)
[2022-12-05] VITALS (11 sets, daily range): BP systolic 109–121; BP diastolic 65–73; PULSE 80–102; RESP 15–18; TEMP 36.4–36.9; O2SAT 92–99
--- NOTE | 2022-12-05 04:09 | PM.HP ---
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 She has been having an overall functional decline with increasing fatigue malaise and lethargy for several months at this point. Most recently she presented to the emergency room on December 02 with chief complaints of abdominal pain nausea and vomiting and was found to have CT evidence of colitis. She was discharged on metronidazole and Zofran. She has a past history of acute diverticulitis. She returned to the emergency room today as she continued to experience 8 out of 10 abdominal pain located mostly in the upper abdomen, radiating into the back and multiple episodes of nausea and vomiting. States that she has been unable to tolerate any oral intake over the last 24 hours. She has not been eating much food. CT of the abdomen taken today did not show any complications intra-abdominally but continued to have stable exam with regards to colitis. Incidentally she was also noted to have a moderate to large right pleural effusion which is a new finding for the patient. Review of Systems General: Reports: 10 or more systems reviewed and unremarkable except in HPI and below Const: Denies: fever(s), chills or body aches Eyes: Denies: change in vision, blurry vision or photophobia ENMT: Reports: hoarseness; Denies: throat pain, enlarged tonsils, odynophagia or nasal congestion Card: Denies: chest pain, palpitations, irregular heart rhythm, edema, swelling of feet/ankles, lightheadedness, pre-syncope, dyspnea on exertion or orthopnea Resp: Denies: dyspnea, productive cough, non-productive cough, wheezing, stridor, pain on inspiration, change in phlegm color, hemoptysis or chest congestion GI: Denies: abdominal pain, nausea, vomiting, hematemesis, coffee ground emesis, dysphagia, heartburn, diarrhea, constipation, GI cramping, change in stool character, hematochezia or melena : Denies: flank pain, difficulty voiding, dysuria, urinary frequency, urinary urgency, urinary hesitancy or hematuria Musc: Denies: neck pain, back pain, extremity pain, joint swelling, joint warmth or deformity Neuro: Denies: headache(s), numbness in extremities, weakness in extremities, sensory changes, difficulty walking, frequent falls, dizziness, vertigo, behavioral changes, Slurred speech present or seizure-like activity Psych: Denies: anxiety, depression, suicidal ideation or homicidal ideation Endo: Denies: polyuria, polydipsia, tired all the time, cold intolerance or hot flashes Kailash/Lymph: Denies: easy bruising or easy bleeding Medications/Allergies Home Medications Medication Instructions Recorded Confirmed Last Taken Type vit C 250 mg-vit E 200 unit-zinc 1 cap PO DAILY 09/19/21 10/16/22 12/29/21 History ox 12.5 ck-tkjvtn-rwrdtn-zeax capsule (ICaps AREDS2) cyclobenzaprine 10 mg tablet See Rx Instructions .Route 03/27/22 10/16/22 Unknown Rx .COMPLEX #90 tabs albuterol sulfate 90 mcg/actuation 2 inh inhalation Q6H PRN Shortness 06/04/22 10/16/22 Unknown Rx aerosol inhaler (ProAir HFA) Of Breath #8.5 grams budesonide-formoterol HFA 160 See Rx Instructions .Route 06/04/22 10/16/22 Unknown Rx mcg-4.5 mcg/actuation aerosol .COMPLEX #10.2 grams inhaler (Symbicort) fluticasone propionate 50 See Rx Instructions .Route 07/11/22 10/16/22 Unknown Rx mcg/actuation nasal .COMPLEX #16 grams spray,suspension guaifenesin 600 mg tablet, See Rx Instructions .Route 07/31/22 10/16/22 Unknown Rx extended release 12 hr (Mucinex) .COMPLEX #60 tabs diazepam 5 mg tablet 5 mg PO TID PRN anxiety 30 days 08/14/22 10/16/22 Unknown Rx #90 tabs prenat.vits,gustabo,byz-hyeu-hlhsu 1 tab PO DAILY #30 tabs 09/13/22 10/16/22 Unknown Rx ondansetron HCl 4 mg tablet 4 mg PO Q8H PRN nausea and 10/10/22 10/16/22 Unknown Rx vomiting #10 tabs pantoprazole 40 mg tablet,delayed 40 mg PO DAILY #30 tabs 10/10/22 10/16/22 Unknown Rx release (Protonix) doxycycline hyclate 100 mg tablet 100 mg PO BID 5 days #10 tabs 10/16/22 10/16/22 Unknown Rx umeclidinium 62.5 mcg/actuation See Rx Instructions .Route 10/25/22 Unknown Rx blister powder for inhalation .COMPLEX #30 blisters (Incruse Ellipta) methylphenidate HCl 5 mg tablet 5 mg PO BID 1 month #60 tabs 11/18/22 Unknown Rx (Ritalin) levothyroxine 25 mcg tablet See Rx Instructions .Route 11/20/22 Unknown Rx .COMPLEX #15 tabs chlorhexidine gluconate 0.12 % See Rx Instructions .Route 11/26/22 Unknown Rx mouthwash .COMPLEX #473 mL metronidazole 500 mg tablet 500 mg PO BID 7 days #14 tabs 12/02/22 Unknown Rx ondansetron HCl 4 mg tablet 4 mg PO Q6H #20 tabs 12/02/22 Unknown Rx Allergies Allergy/AdvReac Type Severity Reaction Status Date / Time ceftriaxone [From Rocephin] Allergy Mild rash Verified 10/16/22 15:40 clarithromycin [From Biaxin] Allergy unknown Verified 10/16/22 15:40 Gadolinium-Containing Allergy ALGY-Bliste Verified 10/16/22 15:40 Contrast Medi r Iodinated Contrast Media Allergy ALGY-Bliste Verified 10/16/22 15:40 r Penicillins Allergy itching Verified 10/16/22 15:40 Sulfa (Sulfonamide Allergy ADR-Itching Verified 12/02/22 15:59 Antibiotics) PFSH Acute PFSH: Medical History Acute diverticulitis Acute sinusitis Adverse effect of drug or medicament Anxiety and depression Breast cancer screening by mammogram COPD (chronic obstructive pulmonary disease) Diverticulosis Environmental and seasonal allergies Fatigue GERD (gastroesophageal reflux disease) History of colonic polyps Hypercholesterolemia Multiple lung nodules 5mm right upper lobe 3mm right lower lob (CT ) Nicotine dependence, cigarettes, uncomplicated Pneumonia Vitamin B12 deficiency Vitamin D deficiency Weight loss Surgical History History of colon surgery Cecal repair following colonoscopy History of colonoscopy Multiple colonoscopy procedures History of neck surgery Removal of benign tumor from the right side of the neck/postauricular area Status post carpal tunnel release of both wrists Status post cholecystectomy (2015) Family History Brother Lung disease Other CAD (coronary artery disease) Cancer Denies family history of Diabetes Clotting disorder Dementia Hyperlipidemia Psychiatric illness Chronic kidney disease (CKD) Suicide Anesthesia complication Bleeding disorder Hypertension Stroke Social History Smoking and tobacco status: current every day smoker (1 ppd, smoked x 50+ years) cigarettes Packs smoked per day: 1 Years cigarettes smoked: 59 [ Other cigarette details: Started at age 22] Alcohol intake: never Substance/Drug Use: never Lives independently: Yes Household members: none Vitals/I&O/Wt Last Vital Signs Temp 97.9 F 12/04/22 23:47 Pulse 89 12/04/22 23:47 Resp 15 12/04/22 23:47 BP 132/63 12/04/22 23:47 Pulse Ox 94 12/04/22 23:47 O2 Del Method Room Air 12/05/22 01:22 12/04/22 12/04/22 12/05/22 14:59 22:59 06:59 Intake Total 1050 / 1050 Balance 1050 / 1050 Weight last 48 hrs Weight 52.163 kg Physical Exam Narrative: General: No acute distress, AO x3 HEENT: PERRLA, pupils bilaterally equal and reactive, pallors not present Chest: Normal vesicular breath sounds, no added sounds, equal good air entry bilaterally CVS: S1-S2 regular, no murmurs, no tachycardia, no gallops, no rubs Abdomen: Soft, nontender, no organomegaly, bowel sounds present Neuro: No focal deficits, no facial deformity, AO x3, power 5/5 in all limbs Data 12/04/22 17:54 12/04/22 17:54 Other Labs: Radiology Impressions Abdomen/Pelvis CT 12/04/22 17:48 IMPRESSION: 1. Stable exam with findings of colitis. 2. Additional chronic and incidental findings as above, to include moderate to large right pleural effusion, atherosclerosis, and colonic diverticulosis. Laboratory Results WBC 5.45 10^3/uL (3.29-11.43) 12/04/22 17:54 RBC 3.95 10^6/uL (3.85-5.65) 12/04/22 17:54 Hgb 11.20 g/dL (11.27-16.99) L 12/04/22 17:54 Hct 35.5 % (36-47) L 12/04/22 17:54 MCV 89.9 fl (85-98) 12/04/22 17:54 MCH 28.4 pg (27-33) 12/04/22 17:54 MCHC 31.5 g/dL (30-55) 12/04/22 17:54 RDW 13.8 % (12.1-15.1) 12/04/22 17:54 Plt Count 217 10^3/cmm (157-399) 12/04/22 17:54 MPV 9.1 fL (7.4-10.4) 12/04/22 17:54 Neut % (Auto) 80.0 % 12/04/22 17:54 Lymph % (Auto) 11.2 % 12/04/22 17:54 [place] % (Auto) 5.5 % 12/04/22 17:54 Eos % (Auto) 2.2 % 12/04/22 17:54 Baso % (Auto) 0.7 % 12/04/22 17:54 Neut # (Auto) 4.36 10^3/uL (1.8-7.7) 12/04/22 17:54 Lymph # (Auto) 0.6 10^3/uL (0.8-4.8) L 12/04/22 17:54 [place] # (Auto) 0.3 10^3/uL (0.2-0.9) 12/04/22 17:54 Eos # (Auto) 0.1 10^3/uL (0.0-0.8) 12/04/22 17:54 Baso # (Auto) 0.0 10^3/uL (0.0-0.1) 12/04/22 17:54 Nucleated RBC % (auto) 0 % 12/04/22 17:54 Nucleated RBCs # 0.0 /100WBC 12/04/22 17:54 Sodium 134 mmol/L (136-145) L 12/04/22 17:54 Potassium 4.1 mmol/L (3.5-5.1) 12/04/22 17:54 Chloride 96 mmol/L (98-107) L 12/04/22 17:54 Carbon Dioxide 30 mmol/L (22-29) H 12/04/22 17:54 Anion Gap 12.1 (5-19) 12/04/22 17:54 BUN 13 mg/dL (8-23) 12/04/22 17:54 Creatinine 0.9 mg/dL (0.5-0.9) 12/04/22 17:54 GFR Calculation Not Reportable 12/04/22 17:54 Glucose 104 mg/dL (65-115) 12/04/22 17:54 Calculated Osmolality 278 mOsm/kg (285-295) L 12/04/22 17:54 Lactic Acid 1.1 mmol/L (0.5-2.2) 12/04/22 17:54 Calcium 9.2 mg/dL (8.5-10.5) 12/04/22 17:54 Total Bilirubin 0.2 mg/dL (0.15-1.2) 12/04/22 17:54 AST 33 U/L (0-32) H 12/04/22 17:54 ALT 47 U/L (0-33) H 12/04/22 17:54 Alkaline Phosphatase 118 U/L (35-105) H 12/04/22 17:54 Total Protein 7.2 g/dL (6.6-8.7) 12/04/22 17:54 Albumin 3.8 g/dL (3.5-5.2) 12/04/22 17:54 Globulin 3.4 g/dL (1.3-4.6) 12/04/22 17:54 Lipase 46 U/L (13-60) 12/04/22 17:54 Urine Color Yellow (Yellow) 12/04/22 20:20 Urine Appearance Clear (CLEAR) 12/04/22 20:20 Urine pH 5 (5-7) 12/04/22 20:20 Ur Specific [place] 1.015 (1.005-1.030) 12/04/22 20:20 Urine Protein Neg (Negative) 12/04/22 20:20 Urine Glucose (UA) Norm (Normal) 12/04/22 20:20 Urine Ketones Negative (Negative) 12/04/22 20:20 Urine Blood Neg (Negative) 12/04/22 20:20 Urine Nitrate Negative (Negative) 12/04/22 20:20 Urine Bilirubin Neg (Negative) 12/04/22 20:20 Urine Urobilinogen Norm mg/dL (Negative) 12/04/22 20:20 Ur Leukocyte Esterase Negative (Negative) 12/04/22 20:20 A&P Assessment and plan (1) Colitis: Patient diagnosed with colitis in December 02, 2022, started on treatment with oral metronidazole however patient has been unable to tolerate the antibiotic treatment due to significant nausea and vomiting. She has not been able to keep any oral intake down including medications and fluids. Admit to [facility] currently Start antibiotic treatment with piperacillin/tazobactam empirically for colitis. Patient reports she has not had any diarrhea recently. As needed Zofran for nausea management. Bowel rest, n.p.o. except meds Attempt clear liquid diet in the morning if patient tolerates. She has received 1 L IV fluid bolus in the emergency room, clinically appearing to be euvolemic currently, will hold off on further IV fluid resuscitation given also con commitment pleural effusion. (2) Pleural effusion: New right-sided pleural effusion. Patient has a past medical history of small cell carcinoma detected onBronchoscopic biopsy of the subcarinal lymph node. Prior PET/CT from October 2021 does make note of a right-sided pleural effusion with right middle and lower lobe atelectasis which was FDG negative. She was recommended to undergo chemotherapy With concomitant radiation at that time, however it appears that patient eventually declined. discussed with her that to further investigate whether her effusion could be malignant, we would need to perform thoracentesis. She does not currently have any signs of respiratory compromise. She states that she is very afraid of needles and any discussion regarding thoracentesis would be best discussed with her daughter, who will be available later today. (3) Small cell carcinoma: as above Attestations Medical Necessity Statement*: > 2 midnight admission is anticipated for management of colitis with failed outpaient po abx Coding Level of Care Code Acute Code for g Fwd Diagnoses Colitis K52.9 Pleural effusion J90 Small cell carcinoma C80.1
[2022-12-05] MEDS: enoxaparin 40 mg/0.4 mL Syringe SUBCUT (04:27)
[2022-12-05] MEDS: piperacillin-tazobactam 3.375 GM in sodium chloride 0.9% (plus) 50 ML IV ×3 (04:30→19:49)
[2022-12-05] MEDS: pantoprazole DR 40 mg Tablet PO (08:05)
[2022-12-05] MEDS: methylphenidate 10 mg Tablet 5 MG PO ×2 (08:05→18:06)
[2022-12-05] MEDS: levothyroxine 25 mcg Tablet 12.5 MCG PO (08:06)
--- NOTE | 2022-12-05 10:33 | PC.CHAP ---
Pastoral Care Encounter/Spiritual Assessment Type of Contact [] Declined head usher visit [] Patient/Family/Request visit [] Outpatient visit [] Follow-up visit [] Physician referral [] Code/Alert [x] Routine visit [] Staff referral [] Actively dying [x] Patient sleeping [] Family support [] [] Out of room [] Palliative care [] [] Receiving care in room [] Pre-surgical visit [] Trauma [] Long length of stay [] ICU visit [] Other: Relational/Emotional Strength [] Patient feels connected with others/family/visitors/staff [] Distress [] Loneliness/isolation [] Abandonment Spirituality of Patient [] Person of Ruby [] Attends Buddhism of their Ruby [] Believes in Prayer [] Reads Bible or Protestant materials [] There are Spiritual issues to be addressed Apple Picker Interventions [x] Prayer [] Active listening [] Non-anxious presence [] Spiritual/emotional support [] Crisis/trauma care [] Spiritual counseling [] Bereavement support [] Provided bereavement packet [] Provided Bible/devotional materials [] Provided toy/stuffed animal, coloring book to patient or family member [] Provided Communion [] Anointing/[place] [] Salvation [] Completed spiritual assessment [] Other: Impact on Illness or Injury [] Angry [] Fearful [] Anxious [] Often cries [] Exhaustion [] Unable to work [] Unable to attend amish [] Unable to walk/stand [] Unable to read [] Unable to drive [] Unable to eat/drink [] Unable to sleep [] Unable to be with family [] Patient intubated [] Other: Summary Time spent with patient 10 min
[2022-12-05 11:11] LABS: Iron 53 ug/dL (37-145); Percent Saturation 25.6 % (20-50); Total Iron Binding Capacity 207 mcg/dl; Unsaturated Iron Binding 154 ug/dL (112-347)
[2022-12-05 11:16] LABS: Thyroid Stimulating Hormone 0.83 uIU/mL (0.27-4.20)
[2022-12-05 11:27] LABS: Procalcitonin 0.04 ng/mL (0-0.5); Vitamin B12 1274 pg/mL (232-1245)
[2022-12-05 11:57] LABS: INR 1.05 (0.8-1.2)
[2022-12-05] MEDS: ipratropium-albuterol 3 mL Neb INHALATION ×2 (13:18→20:29)
--- NOTE | 2022-12-05 13:43 | P.PN_ITS ---
Subjective Subjective: PtosisAdmitted overnight. H&P and labs appreciated. Examination patient laying comfortably in bed. She states she is hungry. Denies any nausea. States abdominal discomfort is better but still having mild abdominal pain periumbilical and lower abdomen. Denies any nausea or vomiting. Has remained hemodynamically stable and afebrile. Blood work appreciated for, stable hemoglobin, mild hyponatremia with sodium down to 134 and creatinine 0.9 on admission. Vitals/I&O/Wt Last Vital Signs Temp 98.5 F 12/05/22 08:00 Pulse 87 12/05/22 13:24 Resp 18 12/05/22 13:18 BP 111/73 12/05/22 08:00 Pulse Ox 97 12/05/22 13:18 O2 Del Method Room Air 12/05/22 13:18 12/04/22 12/05/22 12/05/22 22:59 06:59 14:59 Intake Total 1050 / 1050 50 / 50 Balance 1050 / 1050 50 / 50 Weight last 48 hrs Weight 52.163 kg Physical Exam Narrative: General: No acute distress, AO x3 HEENT: PERRLA, pupils bilaterally equal and reactive, pallors not present Chest: Normal vesicular breath sounds, no added sounds, equal good air entry bilaterally CVS: S1-S2 regular, no murmurs, no tachycardia, no gallops, no rubs Abdomen: Soft, nontender, no organomegaly, bowel sounds present Neuro: No focal deficits, no facial deformity, AO x3, power 5/5 in all limbs Data 12/04/22 17:54 12/04/22 17:54 A&P Assessment and plan (1) Colitis: Patient diagnosed with colitis in December 02, 2022, started on treatment with oral metronidazole however patient has been unable to tolerate the antibiotic treatment due to significant nausea and vomiting. Admitted with poor oral intake after failure to an appropriate outpatient treatment. Continue with Zosyn. Stool studies if possible. Protonix daily, Zofran as needed. Advance diet to clear liquid diet. Patient is euvolemic. Does have significant right-sided pleural effusion. Hold off on any IV fluids. (2) Pleural effusion: New right-sided pleural effusion. Patient has a past medical history of small cell carcinoma detected onBronchoscopic biopsy of the subcarinal lymph node. Prior PET/CT from October 2021 does make note of a right-sided pleural effusion with right middle and lower lobe atelectasis which was FDG negative. She was recommended to undergo chemotherapy With concomitant radiation at that time, however it appears that patient eventually declined. Patient states she does have difficulty in breathing on ambulation and would like that symptom can go away. She still does not want to go ahead with chemotherapy but would be interested if any treatment is available. Discussed thoracentesis in detail with her. She verbalized understanding and would want to go ahead with thoracentesis if possible during admission. Ultrasound guided therapeutic and diagnostic thoracentesis ordered. (3) Small cell carcinoma: as above Plan Continue other chronic oral medications including diazepam as needed, methylphenidate. CODE STATUS: Discussed in detail with the patient. She would not want to be on life support but is okay with chest compressions. Limited resuscitation. Protonix for PUD prophylaxis Clear liquid diet. Advance gradually. Lovenox for DVT prophylaxis. Hold for possible thoracentesis. Attestations Medical Necessity Statement*: Requires further hospitalization for management of colitis with failure to outpatient inappropriate treatment, poor oral intake and inability to keep oral medications down, right pleural effusion requiring thoracentesis for further work-up in setting of history of small cell carcinoma Diagnoses Colitis K52.9 Pleural effusion J90 Small cell carcinoma C80.1
[2022-12-05] MEDS: budesonide 0.5 mg/2 mL Neb INHALATION (20:29)
[2022-12-06] VITALS (8 sets, daily range): BP systolic 106–135; BP diastolic 66–78; PULSE 69–86; RESP 15–18; TEMP 36.4–36.9; O2SAT 95–99
[2022-12-06] MEDS: acetaminophen 325 mg Tablet 650 MG PO (01:27)
[2022-12-06] MEDS: ipratropium-albuterol 3 mL Neb INHALATION ×2 (03:13→08:28)
[2022-12-06] MEDS: piperacillin-tazobactam 3.375 GM in sodium chloride 0.9% (plus) 50 ML IV ×2 (04:04→12:13)
[2022-12-06 05:09] LABS: Basophils % 0.8 %; Eosinophils # 0.2 10^3/uL (0.0-0.8); Hematocrit 30.8 % (36-47); Lymphocytes # 0.9 10^3/uL (0.8-4.8); Lymphocytes % 37.6 %; Mean Corpuscular HGB Conc 31.8 g/dL (30-55); Mean Corpuscular Hemoglobin 29.2 pg (27-33); Mean Corpuscular Volume 91.7 fl (85-98); Mean Platelet Volume 9.6 fL (7.4-10.4); Monocytes # 0.2 10^3/uL (0.2-0.9); Monocytes % 9.5 %; Neutrophils # 1.08 10^3/uL (1.8-7.7); Neutrophils % 44.7 %; Nucleated Red Blood Cells % 0 %; Platelet Count 170 10^3/cmm (157-399); Red Blood Count 3.36 10^6/uL (3.85-5.65); Red Cell Distribution Width 13.8 % (12.1-15.1); White Blood Count 2.42 10^3/uL (3.29-11.43)
[2022-12-06 05:38] LABS: Alanine Aminotransferase 212 U/L (0-33); Alkaline Phosphatase 227 U/L (35-105); Aspartate Amino Transferase 152 U/L (0-32); Blood Urea Nitrogen 6 mg/dL (8-23); Calcium 8.2 mg/dL (8.5-10.5); Carbon Dioxide 25 mmol/L (22-29); Chloride 100 mmol/L (98-107); Chol HDL Ratio 2.56 mg/dL (0.0-4.40); Cholesterol 128 mg/dL (0-200); Glucose 95 mg/dL (65-115); HDL Cholesterol 50 mg/dL (60-100); LDL Cholesterol Calculated 60 mg/dL (50-129); Magnesium 1.6 mg/dL (1.7-2.3); Osmolality Calculated 275 mOsm/kg (285-295); Phosphorus 3.5 mg/dL (2.5-4.5); Sodium 134 mmol/L (136-145); Total Bilirubin 0.3 mg/dL (0.15-1.2); Triglycerides 88 mg/dL (0-150); VLDL Cholestrol Calculation 18 mg/dL (0-30)
[2022-12-06 05:42] LABS: Estmated Average Glucose 91; Hemoglobin A1C 4.8 % (4.0-6.0)
[2022-12-06 05:43] LABS: Anion Gap 13.2 (5-19); Potassium 4.2 mmol/L (3.5-5.1)
[2022-12-06 06:45] LABS: Folate Level > 20.0 ng/mL (4.8-37.3)
[2022-12-06] MEDS: methylphenidate 10 mg Tablet 5 MG PO (08:13)
[2022-12-06] MEDS: levothyroxine 25 mcg Tablet 12.5 MCG PO (08:14)
[2022-12-06] MEDS: budesonide 0.5 mg/2 mL Neb INHALATION (08:28)
--- NOTE | 2022-12-06 09:00 | PC.NURSE ---
Patient has been prepped for thoracentesis by [employer] [facility]. Time is currently 0900. Dr. Lovett is in the room with patient and currently explaining the procedure to the patient. All questions have been answered. Time out preformed at 0902. Vital signs currently 125/70. HR 84. O2 99%. Dr. Babin is beginning procedure. Patient tolerating well. 0915 procedure is finished. Patient tolerated well. Vital signs are B/P 135/78, HR 84. O2 99%. Will get chest xray. Cultures sent to lab.
--- NOTE | 2022-12-06 09:34 | XR_ITS ---
WS: [id number] PORTABLE CHEST HISTORY: Status post RIGHT thoracentesis. COMPARISON: CT 12/04/2022 No pneumothorax status post RIGHT thoracentesis. There is a small residual RIGHT pleural effusion. Mild pulmonary hyperinflation. No mass or nodule. Cardiac size: Normal. Mediastinum/Aorta: RIGHT paratracheal soft tissue mass. This has been previously described on a prior CT from 12/30/2021. No osseous abnormality seen. IMPRESSION: 1. No pneumothorax status post RIGHT thoracentesis. 2. Small residual RIGHT pleural effusion.
[2022-12-06 10:15] LABS: Apprearance, Body Fluid CLEAR; Color, Body Fluid YELLOW; Cyto Order Verification Order Verified; PATH Referral YES
[2022-12-06 10:16] LABS: Body Fluid Polynuclear #Cells 0.009; Body Fluid WBC 1751 /uL; Monocytes # Body Fluid 1.742
[2022-12-06 10:30] LABS: Albumin Body Fluid 2.3 g/dL; Amylase Body Fluid 51 U/L; Cholesterol Body Fluid 52 mg/dL (0-200); Fluid Alkaline Phos. 43 IU/L; LDH Body Fluid 84 U/L; Total Protein Pleural Fluid 3.9 g/dL; Triglycerides Body Fluid 15 mg/dL (0-150); Uric Acid Body Fluid 2 mg/dL
--- NOTE | 2022-12-06 11:00 | US_ITS ---
WS: [id number] ULTRASOUND-GUIDED THORACENTESIS, RIGHT HISTORY: Right pleural effusion Procedure, risks, and complications were explained to the patient. With the patient in an upright pos ition, the skin over the RIGHT posterior thorax was cleansed with ChloraPrep and anesthetized with 1% buffered lidocaine. A 5 [place] [employer] Yueh needle is inserted into the pleural fluid without complication. Approximately 500 cc of light yellow pleural fluid is removed without difficulty. Specimen collected for analysis as requested. IMPRESSION: 1. RIGHT thoracentesis yielding 500 cc of fluid. 2. Chest radiograph to follow to evaluate for pneumothorax.
[2022-12-06 11:11] LABS: pH Body Fluid 7.5
--- NOTE | 2022-12-06 12:01 | PM.DCS ---
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 She has been having an overall functional decline with increasing fatigue malaise and lethargy for several months at this point.? Most recently she presented to the emergency room on December 02 with chief complaints of abdominal pain nausea and vomiting and was found to have CT evidence of colitis.? She was discharged on metronidazole and Zofran.? She has a past history of acute diverticulitis. She returned to the emergency room today as she continued to experience 8 out of 10 abdominal pain located mostly in the upper abdomen, radiating into the back and multiple episodes of nausea and vomiting.? States that she has been unable to tolerate any oral intake over the last 24 hours.? She has not been eating much food.? CT of the abdomen taken today did not show any complications intra-abdominally but continued to have stable exam with regards to colitis. Incidentally she was also noted to have a moderate to large right pleural effusion which is a new finding for the patient. Hospital Course Hospital Course Patient was admitted to the hospital further evaluation and management of colitis with failure to outpatient treatment. She was started on IV antibiotics. Diet was gradually advanced and she is able to tolerate liquid diet for last 24 hours. During hospitalization she was found to have a moderate to large right-sided pleural effusion. Patient complains of shortness of breath on minimal exertion and some chest pain on and off and wanted therapeutic relief as possible. We discussed that pleural effusion could be secondary to malignancy. She stated she would want to know if it secondary to malignancy though she is still not considering treatment. Patient underwent thoracentesis on 12/06 and tolerated the procedure well. Did not have any pneumothorax postprocedure. Fluid studies available so far are negative for empyema but fluid studies are consistent with exudative as fluid protein/total protein is more than 0.5. She has been discharged hemodynamically stable condition on oral ciprofloxacin and Flagyl for next 5 days. She is to take multiple small meals with mechanical soft for next 4 to 5 days and then advance gradually to a regular diet. She is to follow-up with a primary care provider within next 1 week where she would discuss her pleural studies going further. Meanwhile if any study comes back concerning patient will be called back. Discharge plan discussed in detail with the patient and she verbalized understanding. Physical Exam Narrative: General: No acute distress, AO x3, chronically sick appearing HEENT: PERRLA, pupils bilaterally equal and reactive, pallors not present Chest: Normal vesicular breath sounds, no added sounds, equal good air entry bilaterally CVS: S1-S2 regular, no murmurs, no tachycardia, no gallops, no rubs Abdomen: Soft, nontender, no organomegaly, bowel sounds present Neuro: No focal deficits, no facial deformity, AO x3, power 5/5 in all limbs Discharge Data Studies Completed and Pending Completed Studies During Hospitalization Category Date Time Status CT abdomen pelvis wo con [id number] Urgent Cat Scan 12/04/22 17:48 Completed XR chest 1V portable [id number] Routine Exams 12/06/22 09:34 Completed US thoracentesis [id number] Routine Ultrasound 12/06/22 11:00 Completed Pending at discharge Category Date Time Status Anaerobic Culture Routine Lab 12/06/22 09:20 Received Body Fluid Culture & GS Routine Lab 12/06/22 09:20 Received Clostridium Difficile PCR Routine Lab 12/04/22 21:19 Ordered Fungal Culture not HR/SK/BL Routine Lab 12/06/22 09:20 Received MAG [Magnesium] AM LABS Lab 12/07/22 04:00 Ordered MAG [Magnesium] AM LABS Lab 12/08/22 04:00 Ordered Mycobacteria, Culture w/Fluor Routine Lab 12/06/22 09:20 Received PHOS [Phosphorus] AM LABS Lab 12/07/22 04:00 Ordered PHOS [Phosphorus] AM LABS Lab 12/08/22 04:00 Ordered Cytology [PTH] Routine Pth 12/06/22 09:00 Received Radiology Impressions Abdomen/Pelvis CT 12/04/22 17:48 IMPRESSION: 1. Stable exam with findings of colitis. 2. Additional chronic and incidental findings as above, to include moderate to large right pleural effusion, atherosclerosis, and colonic diverticulosis. Laboratory Results WBC 2.42 10^3/uL (3.29-11.43) L 12/06/22 04:04 RBC 3.36 10^6/uL (3.85-5.65) L 12/06/22 04:04 Hgb 9.80 g/dL (11.27-16.99) L 12/06/22 04:04 Hct 30.8 % (36-47) L 12/06/22 04:04 MCV 91.7 fl (85-98) 12/06/22 04:04 MCH 29.2 pg (27-33) 12/06/22 04:04 MCHC 31.8 g/dL (30-55) 12/06/22 04:04 RDW 13.8 % (12.1-15.1) 12/06/22 04:04 Plt Count 170 10^3/cmm (157-399) 12/06/22 04:04 MPV 9.6 fL (7.4-10.4) 12/06/22 04:04 Neut % (Auto) 44.7 % 12/06/22 04:04 Lymph % (Auto) 37.6 % 12/06/22 04:04 [place] % (Auto) 9.5 % 12/06/22 04:04 Eos % (Auto) 7.0 % 12/06/22 04:04 Baso % (Auto) 0.8 % 12/06/22 04:04 Neut # (Auto) 1.08 10^3/uL (1.8-7.7) L 12/06/22 04:04 Lymph # (Auto) 0.9 10^3/uL (0.8-4.8) 12/06/22 04:04 [place] # (Auto) 0.2 10^3/uL (0.2-0.9) 12/06/22 04:04 Eos # (Auto) 0.2 10^3/uL (0.0-0.8) 12/06/22 04:04 Baso # (Auto) 0.0 10^3/uL (0.0-0.1) 12/06/22 04:04 Nucleated RBC % (auto) 0 % 12/06/22 04:04 Nucleated RBCs # 0.0 /100WBC 12/06/22 04:04 Differential Comment Yes 12/06/22 09:20 PT 14.00 SECONDS (12.1-14.9) 12/05/22 11:35 INR 1.05 (0.8-1.2) 12/05/22 11:35 Sodium 134 mmol/L (136-145) L 12/06/22 04:04 Potassium 4.2 mmol/L (3.5-5.1) 12/06/22 04:04 Chloride 100 mmol/L (98-107) 12/06/22 04:04 Carbon Dioxide 25 mmol/L (22-29) 12/06/22 04:04 Anion Gap 13.2 (5-19) 12/06/22 04:04 BUN 6 mg/dL (8-23) L 12/06/22 04:04 Creatinine 0.9 mg/dL (0.5-0.9) 12/06/22 04:04 GFR Calculation Not Reportable 12/06/22 04:04 Glucose 95 mg/dL (65-115) 12/06/22 04:04 Estimat Average Glucose 91 12/06/22 04:04 Hemoglobin A1c 4.8 % (4.0-6.0) 12/06/22 04:04 Calculated Osmolality 275 mOsm/kg (285-295) L 12/06/22 04:04 Lactic Acid 1.1 mmol/L (0.5-2.2) 12/04/22 17:54 Calcium 8.2 mg/dL (8.5-10.5) L 12/06/22 04:04 Phosphorus 3.5 mg/dL (2.5-4.5) 12/06/22 04:04 Magnesium 1.6 mg/dL (1.7-2.3) L 12/06/22 04:04 Iron 53 ug/dL (37-145) 12/04/22 17:45 TIBC 207 mcg/dl 12/04/22 17:45 % Saturation 25.6 % (20-50) 12/04/22 17:45 Unsat Iron Binding 154 ug/dL (112-347) 12/04/22 17:45 Total Bilirubin 0.3 mg/dL (0.15-1.2) 12/06/22 04:04 AST 152 U/L (0-32) H 12/06/22 04:04 ALT 212 U/L (0-33) H 12/06/22 04:04 Alkaline Phosphatase 227 U/L (35-105) H 12/06/22 04:04 Total Protein 6.0 g/dL (6.6-8.7) L 12/06/22 04:04 Albumin 3.0 g/dL (3.5-5.2) L 12/06/22 04:04 Globulin 3.0 g/dL (1.3-4.6) 12/06/22 04:04 Triglycerides 88 mg/dL (0-150) 12/06/22 04:04 Cholesterol 128 mg/dL (0-200) 12/06/22 04:04 LDL Cholesterol, Calc 60 mg/dL (50-129) 12/06/22 04:04 Total VLDL Cholesterol 18 mg/dL (0-30) 12/06/22 04:04 HDL Cholesterol 50 mg/dL (60-100) L 12/06/22 04:04 Cholesterol/HDL Ratio 2.56 mg/dL (0.0-4.40) 12/06/22 04:04 Lipase 46 U/L (13-60) 12/04/22 17:54 Vitamin B12 1274 pg/mL (232-1245) H 12/04/22 17:45 Folate > 20.0 ng/mL (4.8-37.3) 12/06/22 04:04 Procalcitonin 0.04 ng/mL (0-0.5) 12/04/22 17:45 TSH 0.83 uIU/mL (0.27-4.20) 12/04/22 17:45 Urine Color Yellow (Yellow) 12/04/22 20:20 Urine Appearance Clear (CLEAR) 12/04/22 20:20 Urine pH 5 (5-7) 12/04/22 20:20 Ur Specific [place] 1.015 (1.005-1.030) 12/04/22 20:20 Urine Protein Neg (Negative) 12/04/22 20:20 Urine Glucose (UA) Norm (Normal) 12/04/22 20:20 Urine Ketones Negative (Negative) 12/04/22 20:20 Urine Blood Neg (Negative) 12/04/22 20:20 Urine Nitrate Negative (Negative) 12/04/22 20:20 Urine Bilirubin Neg (Negative) 12/04/22 20:20 Urine Urobilinogen Norm mg/dL (Negative) 12/04/22 20:20 Ur Leukocyte Esterase Negative (Negative) 12/04/22 20:20 Fluid Color Yellow 12/06/22 09:20 Fluid Appearance Clear 12/06/22 09:20 Fluid Specific Grav 1.010 12/06/22 09:20 Fluid pH 7.5 12/06/22 09:20 Fluid WBC 1751 /uL 12/06/22 09:20 Fluid RBC 1.000 10^3/uL 12/06/22 09:20 Fld Polynuclear WBCs # 0.009 12/06/22 09:20 Fld Polynuclear WBCs % 0.500 % 12/06/22 09:20 Fl Mononucl WBCs #(Auto) 1.742 12/06/22 09:20 Fl Mononuclear % Auto 99.500 % 12/06/22 09:20 Fld Crystal Laterality See comment 12/06/22 09:20 Fluid Glucose 96.0 mg/dL 12/06/22 09:20 Fluid Albumin 2.3 g/dL 12/06/22 09:20 Fluid LDH 84 U/L 12/06/22 09:20 Fluid Amylase 51 U/L 12/06/22 09:20 Fluid Alk Phosphatase 43 IU/L 12/06/22 09:20 Fluid Cholesterol 52 mg/dL (0-200) 12/06/22 09:20 Fluid Triglycerides 15 mg/dL (0-150) 12/06/22 09:20 Fluid Uric Acid 2 mg/dL 12/06/22 09:20 Pleural Total Protein 3.9 g/dL 12/06/22 09:20 Vitals Last Vital Signs Temp 97.6 F 12/06/22 11:09 Pulse 81 12/06/22 11:09 Resp 16 12/06/22 11:09 BP 135/78 12/06/22 11:09 Pulse Ox 99 12/06/22 11:09 O2 Del Method Room Air 12/06/22 11:09 Discharge Plan Discharge Patient Disposition: Home Condition: Stable Prescriptions: New ciprofloxacin HCl 500 mg tablet 500 mg PO Q12H 5 Days Qty: 10 0RF metronidazole 500 mg tablet 500 mg PO Q12H 5 Days Qty: 10 0RF Continued pantoprazole [Protonix] 40 mg tablet,delayed release (DR/EC) 40 mg PO DAILY Qty: 30 1RF ICaps AREDS2 250 mg-200 unit -12.5 mg-1 mg capsule 1 cap PO DAILY diazepam 5 mg tablet 5 mg PO TID PRN (Reason: anxiety) 30 Days Qty: 90 2RF cyclobenzaprine 10 mg tablet See Rx Instructions .ROUTE .COMPLEX Qty: 90 2RF Dose Instruction: TAKE 1 TABLET BY MOUTH EVERY DAY NEEDED FOR MUSCLE SPASM Rx Instructions: TAKE 1 TABLET BY MOUTH EVERY DAY NEEDED FOR MUSCLE SPASM albuterol sulfate [ProAir HFA] 90 mcg/actuation HFA aerosol inhaler 2 inh inhalation Q6H PRN (Reason: Shortness Of Breath) Qty: 8.5 2RF Rx Instructions: USE 2 INHALATIONS EVERY 6 HOURS NEEDED FOR SHORTNESS OF BREATH fluticasone propionate 50 mcg/actuation spray,suspension See Rx Instructions .ROUTE .COMPLEX Qty: 16 2RF Dose Instruction: ADMINISTER 1 SPRAY INTO EACH NOSTRIL TWICE DAILY Rx Instructions: ADMINISTER 1 SPRAY INTO EACH NOSTRIL TWICE DAILY guaifenesin [Mucinex] 600 mg tablet extended release 12hr See Rx Instructions .ROUTE .COMPLEX Qty: 60 0RF Dose Instruction: TAKE ONE TABLET BY MOUTH EVERY TWELVE HOURS FOR CONGSTION Rx Instructions: TAKE ONE TABLET BY MOUTH EVERY TWELVE HOURS FOR CONGSTION prenat.vits,gustabo,ryk-[id number]-[id number] Tablet 1 tab PO DAILY Qty: 30 5RF methylphenidate HCl [Ritalin] 5 mg tablet 5 mg PO BID 30 Days Qty: 60 0RF levothyroxine 25 mcg tablet See Rx Instructions .ROUTE .COMPLEX Qty: 15 5RF Dose Instruction: TAKE ONE-HALF TABLET (12.5 MCG) BY MOUTH DAILY FOR 30 DAYS Rx Instructions: TAKE ONE-HALF TABLET (12.5 MCG) BY MOUTH DAILY FOR 30 DAYS chlorhexidine gluconate 0.12 % mouthwash See Rx Instructions .ROUTE .COMPLEX Qty: 473 2RF Dose Instruction: USE ONE-HALF OUNCE (15 ML) BY MOUTH TWICE DAILY Rx Instructions: USE ONE-HALF OUNCE (15 ML) BY MOUTH TWICE DAILY ondansetron HCl 4 mg tablet 4 mg PO Q6H Qty: 20 0RF budesonide-formoterol [Symbicort] 160-4.5 mcg/actuation HFA aerosol inhaler See Rx Instructions .ROUTE .COMPLEX Qty: 10.2 2RF Dose Instruction: USE 1 INHALATION BY MOUTH TWICE DAILY Rx Instructions: USE 1 INHALATION BY MOUTH TWICE DAILY umeclidinium 62.5 mcg/actuation blister with device See Rx Instructions .ROUTE .COMPLEX Qty: 30 2RF Dose Instruction: USE 1 INHALATION BY MOUTH EVERY DAY Rx Instructions: USE 1 INHALATION BY MOUTH EVERY DAY Discharge Orders: Discharge Order (Routine); Ordered 12/06/22 Ordered By: Sunny Gardner Referrals: Kamran Peralta MD [Primary Care Provider] - 7-10 days (We have notified your physician's clinic of the need for a follow-up appointment to be scheduled. If you have not heard from them within the next 2 business days, please call them directly. You may also reach out to our global sourcing manager at [phone] and she can assist you.) Discharge Diet: Advance as tolerated and Soft Mechanical Discharge Activity: Resume usual activity and Increase activity as tolerated Patient Instructions: Opioid Safety Activity Restrictions/Additional Instructions: Continue with mechanical soft multiple small meals for next 4 to 5 days and eventually advance to a regular diet within the next 5 days. Ciprofloxacin and Flagyl are the antibiotics which you are supposed to take for next 5 days. Please follow-up with a primary care provider within next 1 week. We will call you back with the results for thoracentesis once available within next 1 week. Discharge Attestations Time Spent in Discharge Care*: greater than 30 min Specific Discharge Activities: educating patient, educating and/or supporting family/caregiver, discussing with pcp/other providers, discussing with case management assistant/social workers/dc planners, documenting/other paperwork and evaluating patient/reviewing data Status at Discharge: Cognitive status at discharge: cognitively intact, Behavioral status at discharge: cooperative, Functional status at discharge: independent ambulation, Overall status at discharge: patient is progressing back to baseline Quality Metrics Clinical Quality Measures [ No reported AMI, CVA or VTE this stay] Coding Level of Care Code 78598 Total time (in minutes) for Discharge: 50 Diagnoses Colitis K52.9 Pleural effusion J90 Small cell carcinoma C80.1
== END 2022-12-06 17:55 | disposition home or self-care (01) | DRG 392 ==
LOC: ER 22:02 → MEDSURG 22:25
PROVIDERS: Admitting Provider Student in an Organized Health Care Education/Training Program; Emergency Provider Physician Assistant; PCP Family Medicine; Visit Provider Student in an Organized Health Care Education/Training Program
DX: K52.9 Noninfective gastroenteritis and colitis, unspecified (principal); C78.00 Secondary malignant neoplasm of unspecified lung; J90 Pleural effusion, not elsewhere classified; E87.1 Hypo-osmolality and hyponatremia; C80.1 Malignant (primary) neoplasm, unspecified; Z79.51 Long term (current) use of inhaled steroids; F41.9 Anxiety disorder, unspecified; F32.A Depression, unspecified; J44.9 Chronic obstructive pulmonary disease, unspecified; K21.9 Gastro-esophageal reflux disease without esophagitis; E78.00 Pure hypercholesterolemia, unspecified; F17.210 Nicotine dependence, cigarettes, uncomplicated
CPT/HCPCS: 32555; 36415; 71045; 74176; 80053; 80061; 80503; 81001; 81003; 82042; 82150; 82465; 82607; 82746; 82945; 83036; 83540; 83550; 83605; 83615; 83690; 83735; 83986; 84075; 84100; 84145; 84157; 84315; 84443; 84478; 84560; 85025; 85610; 87015; 87070; 87075; 87086; 87102; 87116; 87205; 87206; 87801; 88112; 88305; 89050; 94640; 96365; 96372; 96374; 96375; 99285; J1650; J2270; J2543; J2765; J3010; J7030; J7626

== ENCOUNTER → 2022-12-25 14:30 | Outpatient (BNVA) | payer MEDICARE, MEDICAID, SELFPAY | PROVIDERS: PCP Family Medicine; Visit Provider Family Medicine | DX: J90 Pleural effusion, not elsewhere classified (principal); M25.512 Pain in left shoulder; J98.11 Atelectasis | CPT/HCPCS: 71046; 73030 ==

== ENCOUNTER 2023-02-27 17:31 | Emergency (ER) | payer MEDICARE, MEDICAID, SELFPAY ==
[2023-02-27 17:47] VITALS: BP 96/63; PULSE 100; RESP 16; TEMP 36.4; O2SAT 100; BMI 19.2
--- NOTE | 2023-02-27 17:47 | XRR_ITS ---
PROCEDURE INFORMATION: Exam: XR Abdomen Exam date and time: 02/27/2023 6:09 PM Age: 82 years old Clinical indication: Abdominal pain; Additional info: Abd pain TECHNIQUE: Imaging protocol: Radiologic exam of the abdomen. Views: Frontal supine view of the abdomen. 1 View. COMPARISON: CT abdomen pelvis con [id number] 12/04/2022 6:37 PM FINDINGS: Gastrointestinal tract: Nonobstructed bowel-gas pattern. Organs: Irregular linear calcific densities project through the right and left kidneys. Vasculature: Atherosclerotic disease. Bones/joints: Levoscoliosis of the lumbar spine. XR/XR KUB portable [id number] IMPRESSION: Nonobstructed bowel-gas pattern.
--- NOTE | 2023-02-27 18:02 | W.ED.ABDPA2 ---
HPI - Abdominal Pain General: Chief Complaint: Abdominal Pain Stated Complaint: Abd pain, N/V, constipation Time Seen by Provider: 02/27/23 18:00 History of Present Illness: 82-year-old female presents to the emergency department with complaints of generalized lower abdominal pain. She states this has been going on since yesterday and became worse around noon today. She states she did have a single episode of nausea and vomiting and stated that the material that she vomited was yellowish-green and bile in nature. She reports having generalized weakness over the same duration of time. She states she is unable to keep anything of significance down as far as food or liquids and she states that she feels dehydrated. She states her abdominal pain is a vague 3 out of 10 generalized pain. Associated Symptoms: Reports nausea and vomiting Review of Systems General: Reports: 10 or more systems reviewed and unremarkable except in HPI and below Const: Reports: fatigue and malaise GI: Reports: abdominal pain, nausea and vomiting PFSH ED PFSH: Medical History Acute diverticulitis Acute sinusitis Adverse effect of drug or medicament Anxiety and depression Breast cancer screening by mammogram COPD (chronic obstructive pulmonary disease) Diverticulosis Environmental and seasonal allergies Fatigue GERD (gastroesophageal reflux disease) History of colonic polyps Hypercholesterolemia Multiple lung nodules 5mm right upper lobe 3mm right lower lob (CT ) Nicotine dependence, cigarettes, uncomplicated Pneumonia Small cell carcinoma Vitamin B12 deficiency Vitamin D deficiency Weight loss Surgical History History of colon surgery Cecal repair following colonoscopy History of colonoscopy Multiple colonoscopy procedures History of neck surgery Removal of benign tumor from the right side of the neck/postauricular area Status post carpal tunnel release of both wrists Status post cholecystectomy (2014) Family History Brother Lung disease Other CAD (coronary artery disease) Cancer Denies family history of Diabetes Clotting disorder Dementia Hyperlipidemia Psychiatric illness Chronic kidney disease (CKD) Suicide Anesthesia complication Bleeding disorder Hypertension Stroke Social History Smoking and tobacco/nicotine status: current every day tobacco/nicotine user (1 ppd, smoked x 50+ years) cigarettes Packs smoked per day: 1 Years cigarettes smoked: 59 [ Other cigarette details: Started at age 22] Alcohol intake: never Substance/Drug Use: never Lives independently: Yes Household members: none Physical Exam Narrative: EXAM NARRATIVE: Constitutional: the patient appears well nourished and with normal development. Vital signs reviewed as documented. HENMT: Normocephalic, atraumatic. Extermal ears with normal appearance without drainage. Nose without drainage, normal appearance. Mucus membranes moist. Neck is supple, No jugular venous distension, trachea is midline, no appreciable carotid bruits. No lymphadenopathy. No meningeal signs. Flexion, extension and lateral rotation is without pain. Eyes: Pupils are equal, round, reactive to light and accommodation. No scleral icterus. Extra-ocular movement are intact. Thorax is symmetrical and with equal rise and fall with respirations. Resp: Lungs are clear to auscultation. No wheezes, rales, crackles or ronchi at present. Cardio: Regular rate and rhythm. Positive S1, S2. No appreciable murmurs, rubs or gallops. GI: Abdominal exam reveals normal bowel sounds to all quadrants. No organomegaly. No obvious palpable masses noted. No hepatomegally appreciated. Soft, nontender to palpation. Extremity: Extremities are non-edematous and both femoral and pedal pulses are 2+ and equal bilaterally. Moves all extremities well, sensation in all extremities. Neuro: Alert and oriented x4, person, place, time and situation. Cranial nerves II through XII are grossly intact, there is no focal neurological deficits that I can appreciate at present. Motor strength in the upper and lower extremities are equal and bilateral 5/5. Psych: Cooperative, calm, normal thought process, appropriate judgment. Skin: No lesions, rashes. No gross abnormalities noted. Back: Symmetrical, no obvious deformity, No CVA tenderness Course Vital Signs: Vital signs: Vital Signs Temperature 97.6 F 02/27/23 17:47 Pulse Rate 87 02/27/23 20:02 Respiratory Rate 18 02/27/23 20:02 Blood Pressure 96/63 02/27/23 17:47 Pulse Oximetry 97 02/27/23 20:02 Oxygen Delivery Me thod Room Air 02/27/23 20:02 MDM - Abdominal Pain Medical Decision Making Physical exam completed and documented, I will obtain laboratory evaluation to include a CBC, CMP, lipase, urinalysis, and a KUB of the patient's abdomen to evaluate for possible differential diagnosis of bowel obstruction, enteritis, colitis, constipation abdominal wall strain, abdominal wall hematoma. I will provide the patient IV access and IV fluid as well. . Medical Records I reviewed the patient's medical records. Lab Data I reviewed the patient's lab results. 02/27/23 18:19 02/27/23 18:19 Labs/Radiology: Laboratory Results WBC 5.28 10^3/uL (3.29-11.43) 02/27/23 18:19 RBC 4.13 10^6/uL (3.85-5.65) 02/27/23 18:19 Hgb 12.10 g/dL (11.27-16.99) 02/27/23 18:19 Hct 37.0 % (36-47) 02/27/23 18:19 MCV 89.6 fl (85-98) 02/27/23 18:19 MCH 29.3 pg (27-33) 02/27/23 18:19 MCHC 32.7 g/dL (30-55) 02/27/23 18:19 RDW 13.7 % (12.1-15.1) 02/27/23 18:19 Plt Count 256 10^3/cmm (157-399) 02/27/23 18:19 MPV 8.6 fL (7.4-10.4) 02/27/23 18:19 Neut % (Auto) 79.4 % 02/27/23 18:19 Lymph % (Auto) 12.3 % 02/27/23 18:19 Benson % (Auto) 6.6 % 02/27/23 18:19 Eos % (Auto) 0.9 % 02/27/23 18:19 Baso % (Auto) 0.6 % 02/27/23 18:19 Neut # (Auto) 4.19 10^3/uL (1.8-7.7) 02/27/23 18:19 Lymph # (Auto) 0.7 10^3/uL (0.8-4.8) L 02/27/23 18:19 Benson # (Auto) 0.4 10^3/uL (0.2-0.9) 02/27/23 18:19 Eos # (Auto) 0.1 10^3/uL (0.0-0.8) 02/27/23 18:19 Baso # (Auto) 0.0 10^3/uL (0.0-0.1) 02/27/23 18:19 Nucleated RBC % (auto) 0 % 02/27/23 18:19 Nucleated RBCs # 0.0 /100WBC 02/27/23 18:19 Sodium 132 mmol/L (136-145) L 02/27/23 18:19 Potassium 3.8 mmol/L (3.5-5.1) 02/27/23 18:19 Chloride 96 mmol/L (98-107) L 02/27/23 18:19 Carbon Dioxide 29 mmol/L (22-29) 02/27/23 18:19 Anion Gap 10.8 (5-19) 02/27/23 18:19 BUN 22 mg/dL (8-23) 02/27/23 18:19 Creatinine 0.8 mg/dL (0.5-0.9) 02/27/23 18:19 GFR Calculation Not Reportable 02/27/23 18:19 Glucose 99 mg/dL (65-115) 02/27/23 18:19 Calculated Osmolality 277 mOsm/kg (285-295) L 02/27/23 18:19 Calcium 9.4 mg/dL (8.5-10.5) 02/27/23 18:19 Total Bilirubin 0.2 mg/dL (0.15-1.2) 02/27/23 18:19 AST 19 U/L (0-32) 02/27/23 18:19 ALT 15 U/L (0-33) 02/27/23 18:19 Alkaline Phosphatase 103 U/L (35-105) 02/27/23 18:19 Total Protein 7.6 g/dL (6.6-8.7) 02/27/23 18:19 Albumin 3.7 g/dL (3.5-5.2) 02/27/23 18:19 Globulin 3.9 g/dL (1.3-4.6) 02/27/23 18:19 Lipase 42 U/L (13-60) 02/27/23 18:19 Urine Color Yellow (Yellow) 02/27/23 20:07 Urine Appearance Clear (CLEAR) 02/27/23 20:07 Urine pH 5 (5-7) 02/27/23 20:07 Ur Specific Dalton 1.015 (1.005-1.030) 02/27/23 20:07 Urine Protein Neg (Negative) 02/27/23 20:07 Urine Glucose (UA) Norm (Normal) 02/27/23 20:07 Urine Ketones Negative (Negative) 02/27/23 20:07 Urine Blood Neg (Negative) 02/27/23 20:07 Urine Nitrate Negative (Negative) 02/27/23 20:07 Urine Bilirubin Neg (Negative) 02/27/23 20:07 Urine Urobilinogen Norm mg/dL (Negative) 02/27/23 20:07 Ur Leukocyte Esterase Negative (Negative) 02/27/23 20:07 Urine RBC None /hpf (0-2) 02/27/23 20:07 Urine WBC None /hpf (0-5) 02/27/23 20:07 Ur Squamous Epith Cells 0-4 /hpf (0-5) H 02/27/23 20:07 Amorphous Sediment Not Reportable 02/27/23 20:07 Urine Bacteria Trace /hpf (NONE) 02/27/23 20:07 Influenza Type A Ag negative (Negative) 02/27/23 19:00 Influenza Type B Ag negative (Negative) 02/27/23 19:00 SARS-CoV-2 Ag (Rapid) negative (Negative) 02/27/23 19:00 All radiology interpretation(s) finalized by discharge Discharge Plan Discharge Patient Disposition: Home Clinical Impression: Abdominal pain Qualifiers: Abdominal location: right lower quadrant Qualified Code(s): R10.31 - Right lower quadrant pain Constipation Qualifiers: Constipation type: unspecified constipation type Qualified Code(s): K59.00 - Constipation, unspecified Condition: Stable Prescriptions: New Senna-S 8.6-50 mg tablet 2 tab-cap PO BID Qty: 60 0RF No Action pantoprazole [Protonix] 40 mg tablet,delayed release (DR/EC) 40 mg PO DAILY Qty: 30 1RF methylprednisolone acetate [Depo-Medrol] 40 mg/mL suspension 40 mg intra-articular ONCE Qty: 1 0RF lidocaine (PF) 10 mg/mL (1 %) solution 10 mg intra-articular ONCE Qty: 1 0RF ICaps AREDS2 250 mg-200 unit -12.5 mg-1 mg capsule 1 cap PO DAILY albuterol sulfate [ProAir HFA] 90 mcg/actuation HFA aerosol inhaler 2 inh inhalation Q6H PRN (Reason: Shortness Of Breath) Qty: 8.5 2RF Rx Instructions: USE 2 INHALATIONS EVERY 6 HOURS NEEDED FOR SHORTNESS OF BREATH fluticasone propionate 50 mcg/actuation spray,suspension See Rx Instructions .ROUTE .COMPLEX Qty: 16 2RF Dose Instruction: ADMINISTER 1 SPRAY INTO EACH NOSTRIL TWICE DAILY Rx Instructions: ADMINISTER 1 SPRAY INTO EACH NOSTRIL TWICE DAILY guaifenesin [Mucinex] 600 mg tablet extended release 12hr See Rx Instructions .ROUTE .COMPLEX Qty: 60 0RF Dose Instruction: TAKE ONE TABLET BY MOUTH EVERY TWELVE HOURS FOR CONGSTION Rx Instructions: TAKE ONE TABLET BY MOUTH EVERY TWELVE HOURS FOR CONGSTION prenat.vits,gustabo,mef-blfp-shjkz Tablet 1 tab PO DAILY Qty: 30 5RF methylphenidate HCl [Ritalin] 5 mg tablet 5 mg PO BID 30 Days Qty: 60 0RF levothyroxine 25 mcg tablet See Rx Instructions .ROUTE .COMPLEX Qty: 15 5RF Dose Instruction: TAKE ONE-HALF TABLET (12.5 MCG) BY MOUTH DAILY FOR 30 DAYS Rx Instructions: TAKE ONE-HALF TABLET (12.5 MCG) BY MOUTH DAILY FOR 30 DAYS cyclobenzaprine 10 mg tablet See Rx Instructions .ROUTE .COMPLEX Qty: 90 2RF Dose Instruction: TAKE 1 TABLET BY MOUTH EVERY DAY NEEDED FOR MUSCLE SPASM Rx Instructions: TAKE 1 TABLET BY MOUTH EVERY DAY NEEDED FOR MUSCLE SPASM diazepam 5 mg tablet 5 mg PO TID PRN (Reason: anxiety) 30 Days Qty: 90 2RF ondansetron HCl 4 mg tablet 4 mg PO Q8H Qty: 30 0RF chlorhexidine gluconate 0.12 % mouthwash See Rx Instructions .ROUTE .COMPLEX Qty: 473 2RF Dose Instruction: USE ONE-HALF OUNCE (15 ML) BY MOUTH TWICE DAILY Rx Instructions: USE ONE-HALF OUNCE (15 ML) BY MOUTH TWICE DAILY ondansetron HCl 4 mg tablet 4 mg PO Q6H Qty: 20 0RF Symbicort 160-4.5 mcg/actuation HFA aerosol inhaler See Rx Instructions .ROUTE .COMPLEX Qty: 10.2 2RF Dose Instruction: USE 1 INHALATION BY MOUTH TWICE DAILY Rx Instructions: USE 1 INHALATION BY MOUTH TWICE DAILY umeclidinium 62.5 mcg/actuation blister with device See Rx Instructions .ROUTE .COMPLEX Qty: 30 2RF Dose Instruction: USE 1 INHALATION BY MOUTH EVERY DAY Rx Instructions: USE 1 INHALATION BY MOUTH EVERY DAY Discharge Orders: Discharge ED (Routine); Ordered 02/27/23 Ordered By: Sudhir Luna Referrals: PARISH Mabry, [employer] MACHINE OPERATOR [Primary Care Provider] - Discharge Diet: Advance as tolerated Discharge Activity: Resume usual activity Patient Instructions: Abdominal Pain (ED), Opioid Safety, Pain Management Activity Restrictions/Additional Instructions: Activity Restrictions/Additional Instructions: Thank you for choosing [facility] for your healthcare needs today. Please realize that you were seen in the Emergency Department and that we are providing you with an emergency medical screening exam and this may not be a complete and all inclusive of all the testing and or medical work-up that you may need to determine your ailment or severity of your illness. It is very important that you follow-up as instructed with your Primary care provider or Specialist for additional evaluation and to discuss your medical treatment plan. You may return to the Emergency Department should you have concerns or if your condition changes or worsens in any way. Coding Level of Care Code ED Vp Hr Diversity for Wilfrid Lorenzana
[2023-02-27 18:25] LABS: Basophils % 0.6 %; Eosinophils # 0.1 10^3/uL (0.0-0.8); Eosinophils % 0.9 %; Lymphocytes # 0.7 10^3/uL (0.8-4.8); Lymphocytes % 12.3 %; Mean Corpuscular HGB Conc 32.7 g/dL (30-55); Mean Corpuscular Hemoglobin 29.3 pg (27-33); Mean Corpuscular Volume 89.6 fl (85-98); Mean Platelet Volume 8.6 fL (7.4-10.4); Monocytes # 0.4 10^3/uL (0.2-0.9); Monocytes % 6.6 %; Neutrophils # 4.19 10^3/uL (1.8-7.7); Neutrophils % 79.4 %; Nucleated Red Blood Cells % 0 %; Platelet Count 256 10^3/cmm (157-399); Red Blood Count 4.13 10^6/uL (3.85-5.65); Red Cell Distribution Width 13.7 % (12.1-15.1); White Blood Count 5.28 10^3/uL (3.29-11.43)
[2023-02-27 18:43] LABS: Alanine Aminotransferase 15 U/L (0-33); Albumin Level 3.7 g/dL (3.5-5.2); Alkaline Phosphatase 103 U/L (35-105); Anion Gap 10.8 (5-19); Aspartate Amino Transferase 19 U/L (0-32); Blood Urea Nitrogen 22 mg/dL (8-23); Calcium 9.4 mg/dL (8.5-10.5); Carbon Dioxide 29 mmol/L (22-29); Chloride 96 mmol/L (98-107); Globulin 3.9 g/dL (1.3-4.6); Glucose 99 mg/dL (65-115); Lipase 42 U/L (13-60); Osmolality Calculated 277 mOsm/kg (285-295); Potassium 3.8 mmol/L (3.5-5.1); Sodium 132 mmol/L (136-145); Total Bilirubin 0.2 mg/dL (0.15-1.2); Total Protein 7.6 g/dL (6.6-8.7)
[2023-02-27] MEDS: sodium chloride 0.9% 1,000 ML 999 ML IV (19:28)
[2023-02-27 19:42] LABS: Influenza A by IFA negative (Negative); Influenza B by IFA negative (Negative)
[2023-02-27 19:43] LABS: SARS Covid-2 Antigen negative (Negative)
[2023-02-27 20:02] VITALS: PULSE 87; RESP 18; O2SAT 97
[2023-02-27 20:29] LABS: Urine Appearance Clear (CLEAR); Urine Color Yellow (Yellow); pH Urine 5 (5-7)
[2023-02-27 20:30] LABS: Bilirubin Urine Neg (Negative); Blood Urine Neg (Negative); Glucose Urine UA Norm (Normal); Ketones Urine Negative (Negative); Leukocyte Esterase Urine Negative (Negative); Nitrate Urine Negative (Negative); Protein Urine Neg (Negative); Specific Gravity, Urine 1.015 (1.005-1.030); Urobilinogen Urine Norm (Negative)
[2023-02-27 20:32] LABS: Add Urine Culture? No; Bacteria Urine TRACE /hpf; Squamous Epithelial Cell Urine 0-4 /hpf (0-5)
[2023-02-27 20:55] VITALS: BP 138/84; PULSE 88; RESP 18; O2SAT 97
== END 2023-02-27 20:56 | disposition home or self-care (01) ==
PROVIDERS: Emergency Medicine; Emergency Provider Internal Medicine; PCP Nurse Practitioner Family
DX: R10.31 Right lower quadrant pain (principal); K59.00 Constipation, unspecified; Z11.52 Encounter for screening for COVID-19; F17.210 Nicotine dependence, cigarettes, uncomplicated; J44.9 Chronic obstructive pulmonary disease, unspecified
CPT/HCPCS: 74018; 80053; 81001; 83690; 85025; 87426; 87804; 96360; 99284; J7030

== ENCOUNTER → 2023-05-28 14:32 | Outpatient (BNVA) | payer MEDICARE, MEDICAID, SELFPAY | PROVIDERS: PCP Nurse Practitioner Family; Visit Provider Nurse Practitioner Family | DX: J44.9 Chronic obstructive pulmonary disease, unspecified (principal); J98.11 Atelectasis | CPT/HCPCS: 71046 ==

== ENCOUNTER → 2023-07-15 14:16 | Outpatient (BNVA) | payer MEDICARE, MEDICAID, SELFPAY | PROVIDERS: PCP Nurse Practitioner Family; Visit Provider Nurse Practitioner Family | DX: R53.83 Other fatigue (principal); J10.1 Influenza due to other identified influenza virus with other respiratory manifestations; J43.9 Emphysema, unspecified; R91.8 Other nonspecific abnormal finding of lung field; E04.1 Nontoxic single thyroid nodule | CPT/HCPCS: 71046; 80053; 81003; 82728; 83550; 84443; 85025; 87400 ==

== ENCOUNTER 2023-07-17 16:28 | Observation (INO) | payer MEDICARE, MEDICAID, SELFPAY ==
[2023-07-17] VITALS (9 sets, daily range): BP systolic 132–172; BP diastolic 72–110; PULSE 94–107; RESP 16–18; TEMP 36.6; O2SAT 93–95; BMI 20.9
--- NOTE | 2023-07-17 16:38 | ECG_ITS ---
[facility] Test Date: 2023-07-17 Pat Name: Ludin Gramajo Department: Room: Gender: Female Housing Relocation: : 1940 Requested By: Miguel Ángel Meredith Order Number: [id number] Maritza MD: Krunal Lynch M.D. Measurements Intervals [place] Rate: 107 P: 70 NE: 147 QRS: 51 QRSD: 86 T: 57 QT: 320 QTc: 428 Interpretive Statements SINUS TACHYCARDIA SEPTAL MYOCARDIAL INFARCTION , OF INDETERMINATE AGE [40+ ms Q WAVE IN V1/V2] Compared to ECG 12/30/2021 12:52:16 Ventricular premature complex(es) no longer present Myocardial infarct finding still present Electronically Signed On 07-18-2023 23:09:17 CDT by Krunal Lynch M.D. [id number] mike
--- NOTE | 2023-07-17 17:02 | XRR_ITS ---
PROCEDURE INFORMATION: Exam: XR Chest Exam date and time: 07/17/2023 5:18 PM Age: 82 years old Clinical indication: Dyspnea and shortness of breath; Additional info: SOB TECHNIQUE: Imaging protocol: Radiologic exam of the chest. Views: 1 view. COMPARISON: CR XR chest 2V* [id number] 07/15/2023 3:31 PM FINDINGS: Lungs: Similar platelike opacity in the right lower lung. No new focal consolidation. Pleural spaces: Unchanged right pleural effusion. No pneumothorax. Heart/Mediastinum: No cardiomegaly. Bones/joints: No acute findings. XR/XR chest 1V portable [id number] IMPRESSION: No significant change.
[2023-07-17 18:42] LABS: Basophils % 0.2 %; Eosinophils % 0.2 %; Hematocrit 33.7 % (36-47); Lymphocytes # 0.4 10^3/uL (0.8-4.8); Lymphocytes % 7.6 %; Mean Corpuscular HGB Conc 33.2 g/dL (30-55); Mean Corpuscular Hemoglobin 28.8 pg (27-33); Mean Corpuscular Volume 86.6 fl (85-98); Mean Platelet Volume 9.2 fL (7.4-10.4); Monocytes # 0.1 10^3/uL (0.2-0.9); Neutrophils # 4.86 10^3/uL (1.8-7.7); Neutrophils % 89.8 %; Nucleated Red Blood Cells % 0 %; Platelet Count 270 10^3/cmm (157-399); Red Blood Count 3.89 10^6/uL (3.85-5.65); Red Cell Distribution Width 13.3 % (12.1-15.1); White Blood Count 5.41 10^3/uL (3.29-11.43)
--- NOTE | 2023-07-17 18:44 | ECG_ITS ---
[facility] Test Date: 2023-07-17 Pat Name: Ludin Gramajo Department: Room: Gender: Female Director Of Business Services: : 1940 Requested By: Bryce Barone Order Number: [id number] Maritza MD: Krunal Lynch M.D. Measurements Intervals [place] Rate: 100 P: 0 UT: 118 QRS: 16 QRSD: 90 T: -3 QT: 339 QTc: 438 Interpretive Statements SINUS TACHYCARDIA WITH SHORT UT INTERVAL SEPTAL MYOCARDIAL INFARCTION , OF INDETERMINATE AGE [40+ ms Q WAVE IN V1/V2] Compared to ECG 07/17/2023 16:38:23 Short UT interval now present Myocardial infarct finding still present Electronically Signed On 07-18-2023 22:56:00 CDT by Krunal Lynch M.D. [id number]
[2023-07-17] MEDS: methylPREDNISolone sod succ 125 mg/2 mL INJ IVP (19:01)
[2023-07-17 19:03] LABS: INR 0.95 (0.8-1.2)
[2023-07-17 19:04] LABS: Partial Thromboplastin Time 37.6 SECONDS (23.9-36.7)
[2023-07-17 19:08] LABS: Lactic Sepsis W/Reflex 3.5 mmol/L (0.5-2.2)
[2023-07-17] MEDS: ipratropium-albuterol 3 mL Neb INHALATION (19:11)
--- NOTE | 2023-07-17 19:12 | CTR_ITS ---
PROCEDURE INFORMATION: Exam: CT Chest Without Contrast; Diagnostic Exam date and time: 07/17/2023 7:40 PM Age: 82 years old Clinical indication: Dyspnea; Additional info: Allergic to dye/sob/cancer PT TECHNIQUE: Imaging protocol: Diagnostic computed tomography of the chest without contrast. Radiation optimization: All CT scans at this facility use at least one of these dose optimization techniques: automated exposure control; mA and/or kV adjustment per patient size (includes targeted exams where dose is matched to clinical indication); or iterative reconstruction. COMPARISON: CT angio chest PE protcl [id number] 12/30/2021 6:14 PM RADIATION DOSE METRICS: Total DLP (mGy-cm): 263.85 FINDINGS: Thyroid: 1.3 cm heterogeneous lesion in the right thyroid, unchanged. Lungs: Mild bibasilar atelectasis. No focal consolidation to suggest overlying pneumonia. Pleural spaces: Large right pleural effusion. Small to moderate left pleural effusion. No pneumothorax. Heart: Heart is normal in size. Trace pericardial fluid. Coronary arteries: Coronary artery calcifications. Mediastinal space: The largest mass/evette conglomerate, located in the superior mediastinum, measures roughly 6.5 x 3.4 x 3.4 cm (coronal series 13, image 17). This previously measured roughly 4.5 x 2.8 x 2.8 cm on 12/30/2021 and measured in similar dimensions. This previously demonstrated prominent elevated radiotracer uptake on PET-CT 09/26/2021. Lymph nodes: Poorly visualized bulky mediastinal lymphadenopathy, worsened compared to 12/30/2021. Vasculature: Scattered calcific disease of the thoracic aorta and its major branches. Bones/joints: Mild multilevel thoracic spondylosis. Unchanged mild compression deformity of the vertebral body of L1. No acute osseous findings. Soft tissues: Visualized superficial soft tissues demonstrate mild diffuse anasarca. CT/CT chest wo con [id number] IMPRESSION: 1. Large right pleural effusion. Small to moderate left pleural effusion. Mild bibasilar atelectasis. 2. Poorly visualized bulky mediastinal lymphadenopathy, worsened compared to 12/30/2021. This is consistent with progression of neoplastic disease compared to 12/30/2021.
[2023-07-17 19:26] LABS: ABG PCO2 34.1 mmHg (35-45); ABG PH Result 7.48 (7.35-7.45); Arterial Blood Gas Hematocrit 34.9 % (37-47); Blood Gas Allen Test Pos; Blood Gas Sample Site Radial, right; Blood Gas Sample Type Arterial; Carboxyhemoglobin 1.5 %THgb (0.4-20.1); HCO3 ABG 25.3 mmol/L (22-26); HGB O2 Sat 93.8 % (95-100); Ionized Calcium Level - ABG 1.2 mmol/L (1.1-1.4); Methemoglobin 0.5 % (0.4-1.5); Oxygen Saturation ABG 95.7; PO2 ABG 67.5 mmHg (80.0-100.0); PO2 FiO2 Ratio Arterial Blood 0; Potassium Level - ABG 4.4 mmol/L (3.5-5.0); Total Hemoglobin 11.4 g/dL (12-16)
[2023-07-17 19:27] LABS: Troponin(5th) Baseline 12 ng/L (0-10)
[2023-07-17 19:35] LABS: Alanine Aminotransferase 12 U/L (0-33); Albumin Level 3.7 g/dL (3.5-5.2); Alkaline Phosphatase 102 U/L (35-105); Anion Gap 18.2 (5-19); Aspartate Amino Transferase 19 U/L (0-32); Blood Urea Nitrogen 17 mg/dL (8-23); Calcium 8.7 mg/dL (8.5-10.5); Carbon Dioxide 23 mmol/L (22-29); Chloride 94 mmol/L (98-107); Creatinine Clr Calc Pharmacy 46.8913; Globulin 3.8 g/dL (1.3-4.6); Glucose 222 mg/dL (65-115); NT Pro B Type Natriuretic Pept 452 pg/mL (0-450); Osmolality Calculated 280 mOsm/kg (285-295); Potassium 4.2 mmol/L (3.5-5.1); Sodium 131 mmol/L (136-145); Total Bilirubin 0.2 mg/dL (0.15-1.2); Total Protein 7.5 g/dL (6.6-8.7)
[2023-07-17] MEDS: sodium chloride 0.9% 1,000 ML 999 ML IV (19:47)
[2023-07-17 20:36] LABS: Reflex Lactate Order REFLEX LACTIC ORDERD
[2023-07-17 20:53] LABS: Troponin 5 2HR 10.64 ng/L (0-10)
[2023-07-17 20:54] LABS: Troponin 5 2HR Delta -1.36 ABS# (0-10)
--- NOTE | 2023-07-17 21:29 | ED_ITS ---
Documented by User: JANICE Urias 07/18/23 00:42 HPI - SOB/Dyspnea 2 General: Chief Complaint: Shortness of Breath/Dyspnea Stated Complaint: dr smith, cough, sob Time Seen by Provider: 07/17/23 18:29 Source: patient Mode of arrival: ambulatory Limitations: no limitations History of Present Illness: HPI Narrative: Patient is an 82-year-old female presenting to the emergency department accompanied by daughters due to shortness of breath onset past few days. Patient was diagnosed with flu B on 07/14, and seen again at primary care today where she was diagnosed with clinical pneumonia. However she was sent directly to the emergency department from there. Patient has a history of COPD not requiring home O2, as well as small cell carcinoma of the lung, diagnosed in 2021. She is not on hospice care and did not receive chemotherapy. The only complication she reports is having fluid drained off of her lungs in the fall [address] Fried. She is not reporting any orthopnea. She currently is not reporting any chest pain, palpitations, syncope, dizziness, or any other symptoms. Family does note that she has been progressively declining over the past few years in terms of her breathing and chronic weakness. Patient describes her shortness of breath as I just feel like I cannot take a deep enough breath. She was placed on 2 L O2 upon initial examination. No history of blood clots in the legs or lungs. No history of heart failure, heart attacks, or stroke. No fevers reported. MD elicited complaint: shortness of breath Pertinent past history: COPD and other (Small cell carcinoma of lung) Onset (ago): day(s) Context: recent illness (Diagnosed with flu B) Timing: constant and progressively worsening Severity: severe Exacerbating factors: exertion Known history of: COPD and other (Small cell carcinoma of lung) Associated symptoms: Deny abdominal pain, chest pain, fever(s), lightheadedness, nausea, palpitations or vomiting Review of Systems 2 General: Reports: 10 or more systems reviewed and unremarkable except in HPI and below Const: Denies: fever(s), chills or fatigue Eyes: Denies: change in vision ENMT: Denies: throat pain, ear or mastoid pain or nasal discharge Card: Denies: chest pain, palpitations, swelling of feet/ankles or lightheadedness Resp: Reports: dyspnea and non-productive cough; Denies: wheezing GI: Denies: abdominal pain, nausea, vomiting, diarrhea or constipation : Denies: flank pain, difficulty voiding, dysuria or urinary frequency Musc: Denies: neck pain, back pain or joint pain Skin/Breast: Denies: rash Neuro: Reports: weakness in extremities; Denies: headache(s) or numbness in extremities PFSH ED 2 PFSH: Medical History Influenza B 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 Emphysema/COPD Acute bacterial sinusitis Shortness of breath Small cell carcinoma Acute diverticulitis Acute sinusitis Adverse effect of drug or medicament Pneumonia Nicotine dependence, cigarettes, uncomplicated History of colonic polyps Hypercholesterolemia Anxiety and depression Fatigue Weight loss Environmental and seasonal allergies Breast cancer screening by mammogram GERD (gastroesophageal reflux disease) Multiple lung nodules 5mm right upper lobe 3mm right lower lob (CT ) Diverticulosis Vitamin B12 deficiency COPD (chronic obstructive pulmonary disease) Vitamin D deficiency Surgical History History of colonoscopy Multiple colonoscopy procedures History of colon surgery Cecal repair following colonoscopy Status post carpal tunnel release of both wrists History of neck surgery Removal of benign tumor from the right side of the neck/postauricular area Status post cholecystectomy (2014) Family History Brother Lung disease Other CAD (coronary artery disease) Cancer Denies family history of Diabetes Clotting disorder Dementia Hyperlipidemia Psychiatric illness Chronic kidney disease (CKD) Suicide Anesthesia complication Bleeding disorder Hypertension Stroke Social History Smoking and tobacco/nicotine status: current every day tobacco/nicotine user Quit status (tobacco/nicotine): has quit using Year quit tobacco: 2021 Former quit date comment: 1 ppd X 60 Alcohol intake: never Substance/Drug Use: never Lives independently: Yes Household members: none Physical Exam 2 Const: COMMON NORMALS: no acute distress, patient oriented x3 and no limitations GENERAL APPEARANCE: cooperative and comfortable NUTRITIONAL APPEARANCE: thin ORIENTATION/CONSCIOUSNESS: Yes awake, Yes oriented to person, Yes oriented to place and Yes oriented to time HENMT: COMMON NORMALS: normocephalic, atraumatic, hearing grossly normal bilaterally and Normal external nose present HEAD & SCALP: normocephalic and atraumatic NOSE: Normal external nose present THROAT: posterior oropharynx normal Eye: COMMON NORMALS: Equal, round and reactive pupils present, EOMs intact bilaterally and conjunctivae normal CONJUNCTIVA: Yes conjunctivae normal P UPIL: Yes Equal, round and reactive pupils present Neck/C-Spine: COMMON NORMALS: full ROM, supple and no JVD Chest: COMMONS NORMALS: normal inspection of the chest and normal palpation of entire chest wall Resp: COMMON NORMALS: normal respiratory effort, No retractions and No use of accessory muscles AUSCULTATION: no rhonchi, no wheezes and diminished lung sounds bilateral in the lower lung guido Cardio: COMMON NORMALS: no JVD, regular rate, regular rhythm, No clicks present (Cardio), No murmurs present (Cardio) and No rub (Cardio) RATE: r egular rate RHYTHM: regular rhythm GI: COMMON NORMALS: Normal to inspection, nondistended, normoactive bowel sounds present, Soft to palpation and non-tender AUSCULTATION: Yes normoactive bowel sounds PALPATION: Yes Soft to palpation RECTAL EXAM: d eferred Extremity: COMMON NORMALS: normal to inspection, full ROM and capillary refill normal Neuro: COMMON NORMALS: patient oriented x3, CN's II-XII intact bilaterally, moves all extremities, no focal motor deficits and no sensory deficits noted SENSORIUM/ORIENTATION: Yes oriented to person, Yes oriented to place and Yes oriented to time Psych: COMMON NORMALS: mental status grossly normal and Normal thought process present THOUGHT PROCESS: Normal thought process present Skin: COMMON NORMALS: no rashes or lesions noted GENERAL SKIN EXAM: no rashes or lesions noted Course 2 Vital Signs: Vital signs: Vital Signs Temperature 97.6 F 07/18/23 04:00 Pulse Rate 92 07/18/23 05:47 Respiratory Rate 16 07/18/23 04:00 Blood Pressure 130/76 07/18/23 04:00 Pulse Oximetry 95 07/18/23 04:00 Oxygen Delivery Me thod Nasal Cannula 07/18/23 04:00 Oxygen Flow Rate 2 07/18/23 01:35 MDM - SOB/Dyspnea Medical Decision Making This patient was seen for worsening shortness of breath over the past few days, diagnosed with flu on 07/14. She also reports history of small cell carcinoma diagnosed in 2021, did not receive chemotherapy or radiation. Sent by PCP today for further evaluation. She does have a history of COPD not on O2. On arrival her vitals were unremarkable, examination did reveal some mildly diminished breath sounds at the bases, though no wheezing or other abnormal findings on cardiopulmonary auscultation. ABG essentially unremarkable. CBC and CMP also unremarkable. BNP only minimally elevated, no history of heart failure. Chest x-ray did not demonstrate any changes from previous chest x-ray, though chest CT did reveal a large right pleural effusion and a smaller effusion on the left. Also some progression of her cancer when compared to last CT 2 years ago. Patient states she had fluid drained off of her last fall which greatly improved her shortness of breath at that time, and would like to see if she can have this procedure done again in the hospital. I spoke with Dr. Chandler, hospitalist, who takes the patient for observation. He states interventional radiology can perform thoracentesis tomorrow with subsequent discharge home. I informed patient and family of this, to which they gratefully agree. All other questions and concerns addressed at this time. Medical Records I reviewed the patient's medical records. Lab Data I reviewed the patient's lab results. 07/18/23 05:10 07/18/23 05:10 Labs/Radiology: Radiology Impressions Chest X-Ray 07/17/23 17:02 IMPRESSION: No significant change. Chest CT 07/17/23 19:12 IMPRESSION: 1. Large right pleural effusion. Small to moderate left pleural effusion. Mild bibasilar atelectasis. 2. Poorly visualized bulky mediastinal lymphadenopathy, worsened compared to 12/30/2021. This is consistent with progression of neoplastic disease compared to 12/30/2021. Laboratory Results WBC 5.41 10^3/uL (3.29-11.43) 07/17/23 18:21 RBC 3.89 10^6/uL (3.85-5.65) 07/17/23 18:21 Hgb 11.20 g/dL (11.27-16.99) L 07/17/23 18:21 Hct 33.7 % (36-47) L 07/17/23 18:21 MCV 86.6 fl (85-98) 07/17/23 18: MCH 28.8 pg (27-33) 07/17/23 18:21 MCHC 33.2 g/dL (30-55) 07/17/23 18:21 RDW 13.3 % (12.1-15.1) 07/17/23 18:21 Plt Count 270 10^3/cmm (157-399) 07/17/23 18:21 MPV 9.2 fL (7.4-10.4) 07/17/23 18:21 Neut % (Auto) 89.8 % 07/17/23 18:21 Lymph % (Auto) 7.6 % 07/17/23 18:21 [place] % (Auto) 2.0 % 07/17/23 18:21 Eos % (Auto) 0.2 % 07/17/23 18:21 Baso % (Auto) 0.2 % 07/17/23 18:21 Neut # (Auto) 4.86 10^3/uL (1.8-7.7) 07/17/23 18:21 Lymph # (Auto) 0.4 10^3/uL (0.8-4.8) L 07/17/23 18:21 [place] # (Auto) 0.1 10^3/uL (0.2-0.9) L 07/17/23 18:21 Eos # (Auto) 0.0 10^3/uL (0.0-0.8) 07/17/23 18:21 Baso # (Auto) 0.0 10^3/uL (0.0-0.1) 07/17/23 18:21 Nucleated RBC % (auto) 0 % 07/17/23 18:21 Nucleated RBCs # 0.0 /100WBC 07/17/23 18:21 PT 13.00 SECONDS (12.1-14.9) 07/17/23 18:21 INR 0.95 (0.8-1.2) 07/17/23 18:21 APTT 37.6 SECONDS (23.9-36.7) H 07/17/23 18:21 Specimen Type Arterial 07/17/23 19:20 Sample Site Radial, right 07/17/23 19:20 ABG pH 7.48 (7.35-7.45) H 07/17/23 19:20 ABG pCO2 34.1 mmHg (35-45) L 07/17/23 19:20 ABG pO2 67.5 mmHg (80.0-100.0) L 07/17/23 19:20 ABG PO2/FiO2 Ratio 0 07/17/23 19:20 ABG HCO3 25.3 mmol/L (22-26) 07/17/23 19:20 ABG O2 Saturation 95.7 07/17/23 19:20 ABG Base Excess 2.0 mmol/L (-2.0-2.0) 07/17/23 19:20 Jagjit Test Pos 07/17/23 19:20 A-a O2 Gradient 5.0 mmHg (5-10) 07/17/23 19:20 Hematocrit 34.9 % (37-47) L 07/17/23 19:20 Hgb O2 Saturation 93.8 % (95-100) L 07/17/23 19:20 Carboxyhemoglobin 1.5 %THgb (0.4-20.1) 07/17/23 19:20 Methemoglobin 0.5 % (0.4-1.5) 07/17/23 19:20 Total Hemoglobin 11.4 g/dL (12-16) L 07/17/23 19:20 Sodium 133.0 mmol/L (131-143) 07/17/23 19:20 Potassium 4.4 mmol/L (3.5-5.0) 07/17/23 19:20 Glucose 167.0 mg/dL (70-115) H 07/17/23 19:20 Ionized Calcium 1.2 mmol/L (1.1-1.4) 07/17/23 19:20 O2 Delivery Device None 07/17/23 19:20 FiO2 21.0 % 07/17/23 19:20 Grinder Set Up Operator Thread ID [email or web address] 07/17/23 19:20 Sodium 131 mmol/L (136-145) L 07/17/23 18:21 Potassium 4.2 mmol/L (3.5-5.1) 07/17/23 18:21 Chloride 94 mmol/L (98-107) L 07/17/23 18:21 Carbon Dioxide 23 mmol/L (22-29) 07/17/23 18:21 Anion Gap 18.2 (5-19) 07/17/23 18:21 BUN 17 mg/dL (8-23) 07/17/23 18:21 Creatinine 0.7 mg/dL (0.5-0.9) 07/17/23 18:21 GFR Calculation Not Reportable 07/17/23 18:21 Glucose 222 mg/dL (65-115) H 07/17/23 18:21 Calculated Osmolality 280 mOsm/kg (285-295) L 07/17/23 18:21 Lactic Acid 3.5 mmol/L (0.5-2.2) H 07/17/23 18:21 Calcium 8.7 mg/dL (8.5-10.5) 07/17/23 18:21 Total Bilirubin 0.2 mg/dL (0.15-1.2) 07/17/23 18:21 AST 19 U/L (0-32) 07/17/23 18:21 ALT 12 U/L (0-33) 07/17/23 18:21 Alkaline Phosphatase 102 U/L (35-105) 07/17/23 18:21 Troponin T Baseline 12 ng/L (0-10) H 07/17/23 18:21 Troponin T 120 Minute 10.64 ng/L (0-10) H 07/17/23 20:24 Delta Troponin T -1.36 ABS# (0-10) L 07/17/23 20:24 NT-Pro-B Natriuret Pep 452 pg/mL (0-450) H 07/17/23 18:21 Total Protein 7.5 g/dL (6.6-8.7) 07/17/23 18:21 Albumin 3.7 g/dL (3.5-5.2) 07/17/23 18:21 Globulin 3.8 g/dL (1.3-4.6) 07/17/23 18:21 All radiology interpretation(s) finalized by discharge Discharge Plan Discharge Patient Disposition: Placed in Observation Admit Provider: Yaron Chandler Clinical Impression: Bilateral pleural effusion Coding Level of Care Code ED Specialty Transformer Assembler for Chg Fwd Documented by User: Honorio Severino DO 07/18/23 07:40 HPI - SOB/Dyspnea 2 General: Chief Complaint: Shortness of Breath/Dyspnea Stated Complaint: dr smith, cough, sob Time Seen by Provider: 07/17/23 18:29 PFSH ED 2 PFSH: Medical History Influenza B 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 Emphysema/COPD Acute bacterial sinusitis Shortness of breath Small cell carcinoma Acute diverticulitis Acute sinusitis Adverse effect of drug or medicament Pneumonia Nicotine dependence, cigarettes, uncomplicated History of colonic polyps Hypercholesterolemia Anxiety and depression Fatigue Weight loss Environmental and seasonal allergies Breast cancer screening by mammogram GERD (gastroesophageal reflux disease) Multiple lung nodules 5mm right upper lobe 3mm right lower lob (CT ) Diverticulosis Vitamin B12 deficiency COPD (chronic obstructive pulmonary disease) Vitamin D deficiency Surgical History History of colonoscopy Multiple colonoscopy procedures History of colon surgery Cecal repair following colonoscopy Status post carpal tunnel release of both wrists History of neck surgery Removal of benign tumor from the right side of the neck/postauricular area Status post cholecystectomy (2014) Family History Brother Lung disease Other CAD (coronary artery disease) Cancer Denies family history of Diabetes Clotting disorder Dementia Hyperlipidemia Psychiatric illness Chronic kidney disease (CKD) Suicide Anesthesia complication Bleeding disorder Hypertension Stroke Social History Smoking and tobacco/nicotine status: current every day tobacco/nicotine user Quit status (tobacco/nicotine): has quit using Year quit tobacco: 2021 Former quit date comment: 1 ppd X 60 Alcohol intake: never Substance/Drug Use: never Lives independently: Yes Household members: none Course 2 Vital Signs: Vital signs: Vital Signs Temperature 97.6 F 07/18/23 04:00 Pulse Rate 92 07/18/23 05:47 Respiratory Rate 16 07/18/23 04:00 Blood Pressure 130/76 07/18/23 04:00 Pulse Oximetry 95 07/18/23 04:00 Oxygen Delivery Me thod Nasal Cannula 07/18/23 04:00 Oxygen Flow Rate 2 07/18/23 01:35 MDM - SOB/Dyspnea Medical Decision Making This patient was seen for worsening shortness of breath over the past few days, diagnosed with flu on 07/14. She also reports history of small cell carcinoma diagnosed in 2021, did not receive chemotherapy or radiation. Sent by PCP today for further evaluation. She does have a history of COPD not on O2. On arrival her vitals were unremarkable, examination did reveal some mildly diminished breath sounds at the bases, though no wheezing or other abnormal findings on cardiopulmonary auscultation. ABG essentially unremarkable. CBC and CMP also unremarkable. BNP only minimally elevated, no history of heart failure. Chest x-ray did not demonstrate any changes from previous chest x-ray, though chest CT did reveal a large right pleural effusion and a smaller effusion on the left. Also some progression of her cancer when compared to last CT 2 years ago. Patient states she had fluid drained off of her last fall which greatly improved her shortness of breath at that time, and would like to see if she can have this procedure done again in the hospital. I spoke with Dr. Chandler, hospitalist, who takes the patient for observation. He states interventional radiology can perform thoracentesis tomorrow with subsequent discharge home. I informed patient and family of this, to which they gratefully agree. All other questions and concerns addressed at this time. Chart reviewed Lab Data 07/18/23 05:10 07/18/23 05:10 Labs/Radiology: Radiology Impressions Chest X-Ray 07/17/23 17:02 IMPRESSION: No significant change. Chest CT 07/17/23 19:12 IMPRESSION: 1. Large right pleural effusion. Small to moderate left pleural effusion. Mild bibasilar atelectasis. 2. Poorly visualized bulky mediastinal lymphadenopathy, worsened compared to 12/30/2021. This is consistent with progression of neoplastic disease compared to 12/30/2021. Laboratory Results WBC 5.41 10^3/uL (3.29-11.43) 07/17/23 18:21 RBC 3.89 10^6/uL (3.85-5.65) 07/17/23 18:21 Hgb 11.20 g/dL (11.27-16.99) L 07/17/23 18:21 Hct 33.7 % (36-47) L 07/17/23 18:21 MCV 86.6 fl (85-98) 07/17/23 18:21 MCH 28.8 pg (27-33) 07/17/23 18:21 MCHC 33.2 g/dL (30-55) 07/17/23 18:21 RDW 13.3 % (12.1-15.1) 07/17/23 18:21 Plt Count 270 10^3/cmm (157-399) 07/17/23 18:21 MPV 9.2 fL (7.4-10.4) 07/17/23 18:21 Neut % (Auto) 89.8 % 07/17/23 18:21 Lymph % (Auto) 7.6 % 07/17/23 18:21 [place] % (Auto) 2.0 % 07/17/23 18:21 Eos % (Auto) 0.2 % 07/17/23 18:21 Baso % (Auto) 0.2 % 07/17/23 18:21 Neut # (Auto) 4.86 10^3/uL (1.8-7.7) 07/17/23 18:21 Lymph # (Auto) 0.4 10^3/uL (0.8-4.8) L 07/17/23 18:21 [place] # (Auto) 0.1 10^3/uL (0.2-0.9) L 07/17/23 18:21 Eos # (Auto) 0.0 10^3/uL (0.0-0.8) 07/17/23 18:21 Baso # (Auto) 0.0 10^3/uL (0.0-0.1) 07/17/23 18:21 Nucleated RBC % (auto) 0 % 07/17/23 18:21 Nucleated RBCs # 0.0 /100WBC 07/17/23 18:21 PT 13.00 SECONDS (12.1-14.9) 07/17/23 18:21 INR 0.95 (0.8-1.2) 07/17/23 18:21 APTT 37.6 SECONDS (23.9-36.7) H 07/17/23 18:21 Specimen Type Arterial 07/17/23 19:20 Sample Site Radial, right 07/17/23 19:20 ABG pH 7.48 (7.35-7.45) H 07/17/23 19:20 ABG pCO2 34.1 mmHg (35-45) L 07/17/23 19:20 ABG pO2 67.5 mmHg (80.0-100.0) L 07/17/23 19:20 ABG PO2/FiO2 Ratio 0 07/17/23 19:20 ABG HCO3 25.3 mmol/L (22-26) 07/17/23 19:20 ABG O2 Saturation 95.7 07/17/23 19:20 ABG Base Excess 2.0 mmol/L (-2.0-2.0) 07/17/23 19:20 Jagjit Test Pos 07/17/23 19:20 A-a O2 Gradient 5.0 mmHg (5-10) 07/17/23 19:20 Hematocrit 34.9 % (37-47) L 07/17/23 19:20 Hgb O2 Saturation 93.8 % (95-100) L 07/17/23 19:20 Carboxyhemoglobin 1.5 %THgb (0.4-20.1) 07/17/23 19:20 Methemoglobin 0.5 % (0.4-1.5) 07/17/23 19:20 Total Hemoglobin 11.4 g/dL (12-16) L 07/17/23 19:20 Sodium 133.0 mmol/L (131-143) 07/17/23 19:20 Potassium 4.4 mmol/L (3.5-5.0) 07/17/23 19:20 Glucose 167.0 mg/dL (70-115) H 07/17/23 19:20 Ionized Calcium 1.2 mmol/L (1.1-1.4) 07/17/23 19:20 O2 Delivery Device None 07/17/23 19:20 FiO2 21.0 % 07/17/23 19:20 Grinder Set Up Operator Thread ID [email or web address] 07/17/23 19:20 Sodium 131 mmol/L (136-145) L 07/17/23 18:21 Potassium 4.2 mmol/L (3.5-5.1) 07/17/23 18:21 Chloride 94 mmol/L (98-107) L 07/17/23 18:21 Carbon Dioxide 23 mmol/L (22-29) 07/17/23 18:21 Anion Gap 18.2 (5-19) 07/17/23 18:21 BUN 17 mg/dL (8-23) 07/17/23 18:21 Creatinine 0.7 mg/dL (0.5-0.9) 07/17/23 18:21 GFR Calculation Not Reportable 07/17/23 18:21 Glucose 222 mg/dL (65-115) H 07/17/23 18:21 Calculated Osmolality 280 mOsm/kg (285-295) L 07/17/23 18:21 Lactic Acid 3.5 mmol/L (0.5-2.2) H 07/17/23 18:21 Calcium 8.7 mg/dL (8.5-10.5) 07/17/23 18:21 Total Bilirubin 0.2 mg/dL (0.15-1.2) 07/17/23 18:21 AST 19 U/L (0-32) 07/17/23 18:21 ALT 12 U/L (0-33) 07/17/23 18:21 Alkaline Phosphatase 102 U/L (35-105) 07/17/23 18:21 Troponin T Baseline 12 ng/L (0-10) H 07/17/23 18:21 Troponin T 120 Minute 10.64 ng/L (0-10) H 07/17/23 20:24 Delta Troponin T -1.36 ABS# (0-10) L 07/17/23 20:24 NT-Pro-B Natriuret Pep 452 pg/mL (0-450) H 07/17/23 18:21 Total Protein 7.5 g/dL (6.6-8.7) 07/17/23 18:21 Albumin 3.7 g/dL (3.5-5.2) 07/17/23 18:21 Globulin 3.8 g/dL (1.3-4.6) 07/17/23 18:21 Discharge Plan Discharge Patient Disposition: Placed in Observation Admit Provider: Yaron Chandler Clinical Impression: Bilateral pleural effusion Coding Level of Care Code ED Specialty Transformer Assembler for Wilfrid Lorenzana
--- NOTE | 2023-07-17 21:56 | PC.RESP ---
EKG AT 2043 NOT DONE IN ER.
--- NOTE | 2023-07-17 22:02 | P.HP_ITS ---
Documented by User: Sanjeev Knott CLAY STDNT 07/17/23 23:21 Providers/Chief Complaint 2 Admitting Physician: Yaron Chandler MD Primary Care Provider: SHIKHA Ovalles Chief Complaint: dr smith, cough, sob History of Present Illness Ludin Gramajo is a 82 year old female presents to ED today with chronic shortness of air related to history of COPD and small cell lung cancer. She reports this particular episode of shortness of air started approximately 1 week prior. She reports that she has been having some chills, headaches, and worsening shortness of breath and productive cough, with yellow sputum, at home. 07/14 when she saw SHIKHA Gonzalez, at which she tested positive for influenza B. She visited her primary provider today, and she was sent directly to the hospital, for shortness of breath. CT performed in the ER shows bilateral pleural effusion, she has had an effusion in the past drained here at [facility]. She was also on 2 L of nasal cannula oxygen here, she is not on oxygen at home baseline. Patient history significant for COPD, small cell lung cancer?she declined chemotherapy, diaphragm dysfunction, diverticulosis, pneumonia, hyperlipidemia, GERD, anxiety and depression. Surgical history significant for cecal perforation, carpal tunnel release, benign neck tumor removal, and cholecystectomy. Nasal cannula oxygen, Solu-Medrol, DuoNeb, Lasix, administered in the ED. Review of Systems 2 General: Reports: 10 or more systems reviewed and unremarkable except in HPI and below Narrative: Negative except for as noted above. Const: Reports: fatigue ENMT: Reports: nasal congestion Resp: Reports: dyspnea and productive cough Psych: Reports: anxiety Medications/Allergies Home Medications Medication Instructions Recorded Confirmed Last Taken Type vit C 250 mg-vit E 200 unit-zinc 1 cap PO DAILY 09/19/21 07/15/23 12/29/21 History ox 12.5 wd-zgwhez-vvdesp-zeax capsule (ICaps AREDS2) guaifenesin 600 mg tablet, See Rx Instructions .Route 07/31/22 07/15/23 Unknown Rx extended release 12 hr (Mucinex) .COMPLEX #60 tabs prenat.vits,gustabo,jak-xbfy-mlqim 1 tab PO DAILY #30 tabs 09/13/22 07/15/23 Unknown Rx cyclobenzaprine 10 mg tablet See Rx Instructions .Route 12/19/22 07/15/23 Unknown Rx .COMPLEX #90 tabs sennosides 8.6 mg-docusate sodium 2 tab-cap (2 x 8.6-50 mg) PO BID 02/27/23 07/15/23 Unknown Rx 50 mg tablet (Senna-S) #60 tabs fluticasone propionate 50 See Rx Instructions .Route 03/08/23 07/15/23 Unknown Rx mcg/actuation nasal .COMPLEX #16 grams spray,suspension lactulose 20 gram/30 mL oral 20 g (30 mL) PO DAILY 30 days 04/04/23 07/15/23 Unknown Rx solution #1,200 mL diazepam 5 mg tablet 5 mg PO TID PRN anxiety 30 days 04/18/23 07/15/23 Unknown Rx #90 tabs albuterol sulfate 90 mcg/actuation 2 inh inhalation Q6H PRN Shortness 04/30/23 07/15/23 Unknown Rx aerosol inhaler (ProAir HFA) Of Breath #8.5 grams budesonide-formoterol HFA 160 See Rx Instructions .Route 04/30/23 07/15/23 Unknown Rx mcg-4.5 mcg/actuation aerosol .COMPLEX #10.2 grams inhaler (Symbicort) mecobalamin (vitamin B12) 1,000 1,000 mcg sublingual DAILY 30 days 04/30/23 07/15/23 Unknown Rx mcg disintegrating #30 tabs tablet,sublingual nebulizers (MicroAir Mesh #1 ea 05/10/23 07/15/23 Unknown Rx Nebulizer misc) levothyroxine 25 mcg tablet See Rx Instructions .Route 05/15/23 07/15/23 Unknown Rx .COMPLEX #15 tabs chlorhexidine gluconate 0.12 % See Rx Instructions .Route 05/16/23 07/15/23 Unknown Rx mouthwash .COMPLEX #473 mL ondansetron HCl 4 mg tablet 4 mg PO Q8H PRN 06/05/23 07/15/23 Unknown History pantoprazole 40 mg tablet,delayed 40 mg PO DAILY PRN 06/05/23 07/15/23 Unknown History release (Protonix) umeclidinium 62.5 mcg/actuation 1 inh inhalation DAILY #30 ea 06/05/23 07/15/23 Unknown Rx blister powder for inhalation (Incruse Ellipta) albuterol sulfate 2.5 mg/3 mL 1.25 mg (1.5 mL) inhalation Q6H 06/11/23 07/15/23 Unknown Rx (0.083 %) solution for nebulization PRN bronchospasm #90 mL oseltamivir 75 mg capsule (Tamiflu) 75 mg PO BID 5 days #10 caps 07/15/23 07/15/23 Unknown Rx prednisone 20 mg tablet 40 mg (2 x 20 mg) PO .Daily in 07/15/23 07/15/23 Unknown Rx A.M. 5 days #10 tabs Allergies Allergy/AdvReac Type Severity Reaction Status Date / Time ceftriaxone [From Rocephin] Allergy Mild rash Verified 07/15/23 13:35 clarithromycin [From Biaxin] Allergy unknown Verified 07/15/23 13:35 Gadolinium-Containing Allergy ALGY-Bliste Verified 07/15/23 13:35 Contrast Medi r Iodinated Contrast Media Allergy ALGY-Bliste Verified 07/15/23 13:35 r Penicillins Allergy itching Verified 07/15/23 13:35 Sulfa (Sulfonamide Allergy ADR-Itching Verified 07/15/23 13:35 Antibiotics) PFSH Acute 2 PFSH: Medical History Influenza B 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 Emphysema/COPD Acute bacterial sinusitis Shortness of breath Small cell carcinoma Acute diverticulitis Acute sinusitis Adverse effect of drug or medicament Pneumonia Nicotine dependence, cigarettes, uncomplicated History of colonic polyps Hypercholesterolemia Anxiety and depression Fatigue Weight loss Environmental and seasonal allergies Breast cancer screening by mammogram GERD (gastroesophageal reflux disease) Multiple lung nodules 5mm right upper lobe 3mm right lower lob (CT ) Diverticulosis Vitamin B12 deficiency COPD (chronic obstructive pulmonary disease) Vitamin D deficiency Surgical History History of colonoscopy Multiple colonoscopy procedures History of colon surgery Cecal repair following colonoscopy Status post carpal tunnel release of both wrists History of neck surgery Removal of benign tumor from the right side of the neck/postauricular area Status post cholecystectomy (2014) Family History Brother Lung disease Other CAD (coronary artery disease) Cancer Denies family history of Diabetes Clotting disorder Dementia Hyperlipidemia Psychiatric illness Chronic kidney disease (CKD) Suicide Anesthesia complication Bleeding disorder Hypertension Stroke Social History Smoking and tobacco/nicotine status: current every day tobacco/nicotine user Quit status (tobacco/nicotine): has quit using Year quit tobacco: 2021 Former quit date comment: 1 ppd X 60 Alcohol intake: never Substance/Drug Use: never Lives independently: Yes Household members: none Vitals/I&O/Wt Last Vital Signs Temp 98 F 07/17/23 16:40 Pulse 94 07/17/23 21:32 Resp 16 07/17/23 21:32 BP 172/92 07/17/23 21:32 Pulse Ox 95 07/17/23 21:32 O2 Del Method Room Air 07/17/23 19:12 O2 Flow Rate 2 07/17/23 18:44 07/17/23 07/17/23 07/17/23 06:59 14:59 22:59 Intake Total 1000 / 1000 Balance 1000 / 1000 Weight last 48 hrs Weight 111 lb Physical Exam 2 Narrative: General: Uncomfortable appearing female, resting in ER [place], nasal cannula in place, visibly short of breath, however conversing appropriately, no slurred speech, alert and oriented. HEENT: Head atraumatic, normocephalic to visual inspection, PERRL, neck supple thyromegaly noted, no lymphadenopathy noted. CV: Normal rate and rhythm, S1-S2 noted, no murmurs rubs or gallops noted. Pulm: Symmetric chest rise, no accessory muscle use noted, bilateral upper lobes clear to auscultation, right lower lung field diminished, left lower lung field diminished, dullness noted to percussion in right lower lung field, no dullness noted to percussion in left lower lung field. GI: Abdomen soft, nontender, bowel sounds active in all quadrants. : Deferred?patient reports no urinary concerns. Extremities: Capillary refill<2 seconds, +2 pulses in upper and lower extremities, no swelling or edema noted. Data 07/17/23 18:21 07/17/23 18:21 Other Labs: ABG: pH 7.48, pCO2 34.1, pO2 67.5 Calcium: 8.7 AST, ALT, alk phos: 19, 12, 102,?respectively. Troponin T baseline: 12 Troponin T 120: 10.64, delta T -1.36 BNP: 452 Recent TSH: 1.99 Recently positive for influenza B?07/14. Chest x-ray: Personally reviewed, chest x-ray shows significant right lower lobe effusion, possible moderate left lower lobe effusion, airways clear otherwise. CT: Personally reviewed, shows significant bilateral pleural effusions, right greater than left. EKG: Personally reviewed, shows sinus tachycardia. A&P Assessment and plan (1) Bilateral pleural effusion: Patient presents the ED with history of chronic shortness of breath, exacerbated by recent influenza infection. She was seen in the primary clinic today, but she was sent directly to the ED for her current symptoms. CT performed in the ED shows bilateral pleural effusion right greater than left. Physical exam shows diminished lung sounds in the in the right lower lung field, and mild diminished lung sounds to left lower lung field. She has previously received thoracentesis with our system. ? Admit to hospital under observation status. ? Consult pulmonology or interventional radiology to perform thoracentesis. ? Labs for pleural fluid analysis ordered. ? Titrate oxygen therapy as needed to maintain oxygen saturation above 89%, due to her chronic COPD. (2) COPD (chronic obstructive pulmonary disease): Patient has a chronic history of COPD, secondary to smoking. She does not use any oxygen therapy at home, but does have albuterol, budesonide/formoterol, and fluticasone at home. ? Possible COPD exacerbation related to her pleural effusion and influenza B. ? Oxygen therapy as noted above. ? Pulmicort 0.5 mg, nebulized, twice daily. ? DuoNeb 3 mL, nebulized, every 6 ?Continue to monitor. (3) Small cell carcinoma of lung: Patient's history of small cell lung carcinoma, diagnosed in 2021, patient refused chemotherapy at this time. She has had previous episodes of pleural effusion, for which thoracentesis was performed within our system. ? Current shortness of breath most likely associated with pleural effusion, related to her small cell carcinoma. ? Management for pleural effusion as noted above. (4) Influenza B: Patient presents to the ED with chronic shortness of breath, most likely exacerbated by her pleural effusion and influenza B. She tested positive on 07/14, as she has been having symptoms associated with that for the past week. She reports productive cough, chills, and increased shortness of breath more than her usual baseline. ? Tamiflu 30 mg, p.o., twice daily. ? Supportive symptomatic therapy. ? Continue to monitor (5) Hyponatremia: Patient has hyponatremia this visit, 131 on CMP. Assessing previous trend, patient has been chronically hyponatremic. Hyponatremia may be related to her small cell lung cancer, as a paraneoplastic symptom. Patient is not symptomatic at this time. ? Will continue to monitor. ? Morning labs: CMP, CBC. Coding Level of Care Code 62768 Diagnoses Bilateral pleural effusion J90 COPD (chronic obstructive pulmonary disease) J44.9 Small cell carcinoma of lung C34.90 Influenza B J10.1 Hyponatremia E87.1 Time Spent (min) 54 Documented by User: Yaron Chandler MD 07/17/23 23:28 Providers/Chief Complaint 2 Chief Complaint: dr smith, cough, sob Medications/Allergies Home Medications Medication Instructions Recorded Confirmed Last Taken Type vit C 250 mg-vit E 200 unit-zinc 1 cap PO DAILY 09/19/21 07/15/23 12/29/21 History ox 12.5 bj-txjmnv-ctultc-zeax capsule (ICaps AREDS2) guaifenesin 600 mg tablet, See Rx Instructions .Route 07/31/22 07/15/23 Unknown Rx extended release 12 hr (Mucinex) .COMPLEX #60 tabs prenat.vits,gustabo,fek-hbav-nvkuk 1 tab PO DAILY #30 tabs 09/13/22 07/15/23 Unknown Rx cyclobenzaprine 10 mg tablet See Rx Instructions .Route 12/19/22 07/15/23 Unknown Rx .COMPLEX #90 tabs sennosides 8.6 mg-docusate sodium 2 tab-cap (2 x 8.6-50 mg) PO BID 02/27/23 07/15/23 Unknown Rx 50 mg tablet (Senna-S) #60 tabs fluticasone propionate 50 See Rx Instructions .Route 03/08/23 07/15/23 Unknown Rx mcg/actuation nasal .COMPLEX #16 grams spray,suspension lactulose 20 gram/30 mL oral 20 g (30 mL) PO DAILY 30 days 04/04/23 07/15/23 Unknown Rx solution #1,200 mL diazepam 5 mg tablet 5 mg PO TID PRN anxiety 30 days 04/18/23 07/15/23 Unknown Rx #90 tabs albuterol sulfate 90 mcg/actuation 2 inh inhalation Q6H PRN Shortness 04/30/23 07/15/23 Unknown Rx aerosol inhaler (ProAir HFA) Of Breath #8.5 grams budesonide-formoterol HFA 160 See Rx Instructions .Route 04/30/23 07/15/23 Unknown Rx mcg-4.5 mcg/actuation aerosol .COMPLEX #10.2 grams inhaler (Symbicort) mecobalamin (vitamin B12) 1,000 1,000 mcg sublingual DAILY 30 days 04/30/23 07/15/23 Unknown Rx mcg disintegrating #30 tabs tablet,sublingual nebulizers (MicroAir Mesh #1 ea 05/10/23 07/15/23 Unknown Rx Nebulizer misc) levothyroxine 25 mcg tablet See Rx Instructions .Route 05/15/23 07/15/23 Unknown Rx .COMPLEX #15 tabs chlorhexidine gluconate 0.12 % See Rx Instructions .Route 05/16/23 07/15/23 Unknown Rx mouthwash .COMPLEX #473 mL ondansetron HCl 4 mg tablet 4 mg PO Q8H PRN 06/05/23 07/15/23 Unknown History pantoprazole 40 mg tablet,delayed 40 mg PO DAILY PRN 06/05/23 07/15/23 Unknown History release (Protonix) umeclidinium 62.5 mcg/actuation 1 inh inhalation DAILY #30 ea 06/05/23 07/15/23 Unknown Rx blister powder for inhalation (Incruse Ellipta) albuterol sulfate 2.5 mg/3 mL 1.25 mg (1.5 mL) inhalation Q6H 06/11/23 07/15/23 Unknown Rx (0.083 %) solution for nebulization PRN bronchospasm #90 mL oseltamivir 75 mg capsule (Tamiflu) 75 mg PO BID 5 days #10 caps 07/15/23 07/15/23 Unknown Rx prednisone 20 mg tablet 40 mg (2 x 20 mg) PO .Daily in 07/15/23 07/15/23 Unknown Rx A.M. 5 days #10 tabs Allergies Allergy/AdvReac Type Severity Reaction Status Date / Time ceftriaxone [From Rocephin] Allergy Mild rash Verified 07/15/23 13:35 clarithromycin [From Biaxin] Allergy unknown Verified 07/15/23 13:35 Gadolinium-Containing Allergy ALGY-Bliste Verified 07/15/23 13:35 Contrast Medi r Iodinated Contrast Media Allergy ALGY-Bliste Verified 07/15/23 13:35 r Penicillins Allergy itching Verified 07/15/23 13:35 Sulfa (Sulfonamide Allergy ADR-Itching Verified 07/15/23 13:35 Antibiotics) PFSH Acute 2 PFSH: Medical History Influenza B 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 Emphysema/COPD Acute bacterial sinusitis Shortness of breath Small cell carcinoma Acute diverticulitis Acute sinusitis Adverse effect of drug or medicament Pneumonia Nicotine dependence, cigarettes, uncomplicated History of colonic polyps Hypercholesterolemia Anxiety and depression Fatigue Weight loss Environmental and seasonal allergies Breast cancer screening by mammogram GERD (gastroesophageal reflux disease) Multiple lung nodules 5mm right upper lobe 3mm right lower lob (CT ) Diverticulosis Vitamin B12 deficiency COPD (chronic obstructive pulmonary disease) Vitamin D deficiency Surgical History History of colonoscopy Multiple colonoscopy procedures History of colon surgery Cecal repair following colonoscopy Status post carpal tunnel release of both wrists History of neck surgery Removal of benign tumor from the right side of the neck/postauricular area Status post cholecystectomy (2014) Family History Brother Lung disease Other CAD (coronary artery disease) Cancer Denies family history of Diabetes Clotting disorder Dementia Hyperlipidemia Psychiatric illness Chronic kidney disease (CKD) Suicide Anesthesia complication Bleeding disorder Hypertension Stroke Social History Smoking and tobacco/nicotine status: current every day tobacco/nicotine user Quit status (tobacco/nicotine): has quit using Year quit tobacco: 2021 Former quit date comment: 1 ppd X 60 Alcohol intake: never Substance/Drug Use: never Lives independently: Yes Household members: none Physical Exam 2 Narrative: General: No obvious distress. HEENT: Head atraumatic, normocephalic to visual inspection, PERRL, neck supple thyromegaly noted, no lymphadenopathy noted. CV: Normal rate and rhythm, S1-S2 noted, no murmurs rubs or gallops noted. Pulm: Symmetric chest rise, no accessory muscle use noted, bilateral upper lobes clear to auscultation, right lower lung field diminished, left lower lung field diminished, dullness noted to percussion in right lower lung field, no dullness noted to percussion in left lower lung field. GI: Abdomen soft, nontender, bowel sounds active in all quadrants. : Deferred?patient reports no urinary concerns. Extremities: Capillary refill<2 seconds, +2 pulses in upper and lower extremities, no swelling or edema noted. Data 07/17/23 18:21 07/17/23 18:21 Other Labs: ABG: pH 7.48, pCO2 34.1, pO2 67.5 Calcium: 8.7 AST, ALT, alk phos: 19, 12, 102,?respectively. Troponin T baseline: 12 Troponin T 120: 10.64, delta T -1.36 BNP: 452 Recent TSH: 1.99 Recently positive for influenza B?07/14. Chest x-ray: Personally reviewed, chest x-ray shows significant right lower lobe effusion, possible moderate left lower lobe effusion, airways clear otherwise. CT: Personally reviewed, shows significant bilateral pleural effusions, right greater than left. EKG: Personally reviewed, shows sinus tachycardia. Small Q waves noted V1 and V2 A&P Assessment and plan (1) Bilateral pleural effusion: Patient presents the ED with history of chronic shortness of breath, exacerbated by recent influenza infection. She was seen in the primary clinic today, but she was sent directly to the ED for her current symptoms. CT performed in the ED shows bilateral pleural effusion right greater than left. Physical exam shows diminished lung sounds in the in the right lower lung field, and mild diminished lung sounds to left lower lung field. She has previously received thoracentesis with our system. No evidence of pneumonia, on CT scan. ? Admit to hospital under observation status. ? Consult pulmonology or interventional radiology to perform thoracentesis. Studies ordered. ? Labs for pleural fluid analysis ordered. ? Titrate oxygen therapy as needed to maintain oxygen saturation above 89%, due to her chronic COPD. Likely can discharge home, following thoracentesis if no complications, and have follow-up with pulmonary. She reports past thoracentesis by radiology, related to her lung cancer. Certainly if this recurs, [place] drain will need to be entertained. She does not want any chemotherapy or other treatment for her lung cancer as indicated by review of previous records. (2) COPD (chronic obstructive pulmonary disease): Patient has a chronic history of COPD, secondary to smoking. She does not use any oxygen therapy at home, but does have albuterol, budesonide/formoterol, and fluticasone at home. ? No evidence of COPD exacerbation currently. ? Oxygen therapy as noted above. ? Pulmicort 0.5 mg, nebulized, twice daily. ? DuoNeb 3 mL, nebulized, every 6 ?Continue to monitor. (3) Small cell carcinoma of lung: (4) Influenza B: Patient presents to the ED with chronic shortness of breath, most likely exacerbated by her pleural effusion and influenza B. She tested positive on 07/14, as she has been having symptoms associated with that for the past week. She reports productive cough, chills, and increased shortness of breath more than her usual baseline. ? Tamiflu 30 mg, p.o., twice daily. Dose adjusted for renal function ? Supportive symptomatic therapy. ? Continue to monitor (5) Hyponatremia: Patient has hyponatremia this visit, 131 on CMP. Assessing previous trend, patient has been chronically hyponatremic. Hyponatremia may be related to her small cell lung cancer, as a paraneoplastic symptom. Patient is not symptomatic at this time. Repeat BMP in the morning. Lasix 20 mg IV x 1. This will likely increase sodium slightly. No extra IV fluids. Plan Multiple other medical problems as outlined by past medical history Full code currently Hold anticoagulation as procedure is expected tomorrow, thoracentesis. SCDs can be used Attestations 2 Medical Necessity Statement*: Will need less than 2 midnight stay for evaluation and treatment of pleural effusion with need for thoracentesis. Diagnoses Bilateral pleural effusion J90 COPD (chronic obstructive pulmonary disease) J44.9 Small cell carcinoma of lung C34.90 Influenza B J10.1 Hyponatremia E87.1 Time Spent (min) 54
[2023-07-17] MEDS: FUROsemide 10 mg/mL SDV 2mL 20 MG IVP (22:47)
[2023-07-18] VITALS (9 sets, daily range): BP systolic 130–154; BP diastolic 72–87; PULSE 92–103; RESP 16–18; TEMP 36.4–36.9; O2SAT 95–99
[2023-07-18 01:20] LABS: Troponin 5 6HR 11.91 ng/L (0-10); Troponin 5 6HR Delta -0.09 ng/L (0-12)
[2023-07-18] MEDS: ipratropium-albuterol 3 mL Neb INHALATION ×2 (01:27→07:39)
--- NOTE | 2023-07-18 01:34 | ECG_ITS ---
[facility] Test Date: 2023-07-18 Pat Name: Ludin Gramajo Department: Room: 258 Gender: Female Nurse Plastics: : 1940 Requested By: Bryce Barone Order Number: [id number] Maritza MD: Krunal Lynch M.D. Measurements Intervals [place] Rate: 91 P: 78 NJ: 146 QRS: 10 QRSD: 92 T: 54 QT: 358 QTc: 441 Interpretive Statements SINUS RHYTHM ANTEROSEPTAL MYOCARDIAL INFARCTION , PROBABLY OLD [40+ ms Q WAVE IN V1-V4] Compared to ECG 07/17/2023 18:47:08 Sinus tachycardia no longer present Short [place] interval no longer present Myocardial infarct finding still present Electronically Signed On 07-18-2023 23:10:36 CDT by Krunal Lynch M.D. [email or web address]
[2023-07-18] MEDS: acetaminophen 325 mg Tablet 650 MG PO (04:46)
[2023-07-18 05:16] LABS: Hematocrit 31.4 % (36-47); Lymphocytes # 0.5 10^3/uL (0.8-4.8); Lymphocytes % 13.7 %; Mean Corpuscular HGB Conc 33.4 g/dL (30-55); Mean Corpuscular Hemoglobin 28.7 pg (27-33); Mean Corpuscular Volume 85.8 fl (85-98); Mean Platelet Volume 8.8 fL (7.4-10.4); Monocytes # 0.2 10^3/uL (0.2-0.9); Monocytes % 4.6 %; Neutrophils % 81.2 %; Nucleated Red Blood Cells % 0 %; Platelet Count 268 10^3/cmm (157-399); Red Blood Count 3.66 10^6/uL (3.85-5.65); Red Cell Distribution Width 13.3 % (12.1-15.1); White Blood Count 3.94 10^3/uL (3.29-11.43)
[2023-07-18 05:41] LABS: Anion Gap 14.2 (5-19); Blood Urea Nitrogen 14 mg/dL (8-23); Calcium 8.8 mg/dL (8.5-10.5); Carbon Dioxide 24 mmol/L (22-29); Chloride 98 mmol/L (98-107); Creatinine Clr Calc Pharmacy 49.0298; Glucose 124 mg/dL (65-115); Osmolality Calculated 276 mOsm/kg (285-295); Potassium 4.2 mmol/L (3.5-5.1); Sodium 132 mmol/L (136-145)
[2023-07-18] MEDS: levothyroxine 25 mcg Tablet 12.5 MCG PO (06:09)
[2023-07-18] MEDS: budesonide 0.5 mg/2 mL Neb INHALATION (07:39)
--- NOTE | 2023-07-18 09:15 | PM.DCS ---
Discharge Providers Date of Admission: 07/17/23 21:19 Date of Discharge: July 18, 2023 Attending Provider at Admission: Yaron Chandler MD Attending Provider at Discharge: Mia Das MD Primary Care Provider: SHIKHA Ovalles Diagnoses at Discharge Discharge Diagnosis (1) Bilateral pleural effusion: Status: Acute (2) COPD (chronic obstructive pulmonary disease): Status: Acute (3) Small cell carcinoma of lung: Status: Acute (4) Influenza B: Status: Acute (5) Hyponatremia: Status: Acute Reason for Visit Reason for Visit: dr smith, cough, sob Hospital Course Hospital Course Patient presented for bilateral pleural effusions for therapeutic thoracentesis. She has small cell lung cancer and she has declined chemotherapy in the past. This morning she tells me that she just wants the thoracentesis and thereafter she wants to go home. If the effusion does recur then [place] drain will be placed. She has discussed with her validation manager as an outpatient. Generally patient feels well today. No evidence of COPD exacerbation currently. She was diagnosed with influenza B and has been started on Tamiflu. Patient also hyponatremic on admission. Lasix 20 IV x 1 was given. Sodium 132 this morning. Patient had thoracentesis done. She will be discharged home in stable condition at this time. Physical Exam Narrative: General: No obvious distress. HEENT: Head atraumatic, normocephalic to visual inspection, PERRL, CV: Normal rate and rhythm, S1-S2 noted, no murmurs rubs or gallops noted. Pulm: Mild dullness bilaterally at bases no crackles no wheezes no rhonchi. GI: Abdomen soft, nontender, bowel sounds active in all quadrants. : Deferred?patient reports no urinary concerns. Extremities: Capillary refill<2 seconds, +2 pulses in upper and lower extremities, no swelling or edema noted. Discharge Data Studies Completed and Pending Completed Studies During Hospitalization Category Date Time Status CT chest wo con [id number] Stat Cat Scan 07/17/23 19:12 Completed CXRP [XR chest 1V portable [id number]] Stat Exams 07/17/23 17:02 Completed Pending at discharge Category Date Time Status Amylase, Pleural Fluid Routine Lab 07/17/23 22:59 Ordered Albumin Body Fluid Routine Lab 07/17/23 22:59 Ordered Body Fluid Analysis Routine Lab 07/17/23 22:59 Ordered Body Fluid Culture & GS Routine Lab 07/17/23 22:59 Ordered Creatinine Body Fluid Routine Lab 07/17/23 22:59 Ordered Glucose Pleural Fluid Routine Lab 07/17/23 22:59 Ordered Hematocrit Body Fluid Routine Lab 07/17/23 22:59 Ordered LDH Pleural Fluid Routine Lab 07/17/23 22:59 Ordered Mycobacteria, Culture w/Fluor Routine Lab 07/17/23 22:59 Ordered Total Protein Pleural Fluid Routine Lab 07/17/23 22:59 Ordered Triglycerides, Pleural Fluid Routine Lab 07/17/23 22:59 Ordered pH Pleural Fluid Routine Lab 07/17/23 22:59 Ordered US thoracentesis [id number] Routine Ultrasound 07/18/23 22:11 Ordered Radiology Impressions Chest X-Ray 07/17/23 17:02 IMPRESSION: No significant change. Chest CT 07/17/23 19:12 IMPRESSION: 1. Large right pleural effusion. Small to moderate left pleural effusion. Mild bibasilar atelectasis. 2. Poorly visualized bulky mediastinal lymphadenopathy, worsened compared to 12/30/2021. This is consistent with progression of neoplastic disease compared to 12/30/2021. Laboratory Results WBC 3.94 10^3/uL (3.29-11.43) 07/18/23 05:10 RBC 3.66 10^6/uL (3.85-5.65) L 07/18/23 05:10 Hgb 10.50 g/dL (11.27-16.99) L 07/18/23 05:10 Hct 31.4 % (36-47) L 07/18/23 05:10 MCV 85.8 fl (85-98) 07/18/23 05:10 MCH 28.7 pg (27-33) 07/18/23 05:10 MCHC 33.4 g/dL (30-55) 07/18/23 05:10 RDW 13.3 % (12.1-15.1) 07/18/23 05:10 Plt Count 268 10^3/cmm (157-399) 07/18/23 05:10 MPV 8.8 fL (7.4-10.4) 07/18/23 05:10 Neut % (Auto) 81.2 % 07/18/23 05:10 Lymph % (Auto) 13.7 % 07/18/23 05:10 Lynn % (Auto) 4.6 % 07/18/23 05:10 Eos % (Auto) 0.0 % 07/18/23 05:10 Baso % (Auto) 0.0 % 07/18/23 05:10 Neut # (Auto) 3.20 10^3/uL (1.8-7.7) 07/18/23 05:10 Lymph # (Auto) 0.5 10^3/uL (0.8-4.8) L 07/18/23 05:10 Lynn # (Auto) 0.2 10^3/uL (0.2-0.9) 07/18/23 05:10 Eos # (Auto) 0.0 10^3/uL (0.0-0.8) 07/18/23 05:10 Baso # (Auto) 0.0 10^3/uL (0.0-0.1) 07/18/23 05:10 Nucleated RBC % (auto) 0 % 07/18/23 05:10 Nucleated RBCs # 0.0 /100WBC 07/18/23 05:10 PT 13.00 SECONDS (12.1-14.9) 07/17/23 18:21 INR 0.95 (0.8-1.2) 07/17/23 18:21 APTT 37.6 SECONDS (23.9-36.7) H 07/17/23 18:21 Specimen Type Arterial 07/17/23 19:20 Sample Site Radial, right 07/17/23 19:20 ABG pH 7.48 (7.35-7.45) H 07/17/23 19:20 ABG pCO2 34.1 mmHg (35-45) L 07/17/23 19:20 ABG pO2 67.5 mmHg (80.0-100.0) L 07/17/23 19:20 ABG PO2/FiO2 Ratio 0 07/17/23 19:20 ABG HCO3 25.3 mmol/L (22-26) 07/17/23 19:20 ABG O2 Saturation 95.7 07/17/23 19:20 ABG Base Excess 2.0 mmol/L (-2.0-2.0) 07/17/23 19:20 Jagjit Test Pos 07/17/23 19:20 A-a O2 Gradient 5.0 mmHg (5-10) 07/17/23 19:20 Hematocrit 34.9 % (37-47) L 07/17/23 19:20 Hgb O2 Saturation 93.8 % (95-100) L 07/17/23 19:20 Carboxyhemoglobin 1.5 %THgb (0.4-20.1) 07/17/23 19:20 Methemoglobin 0.5 % (0.4-1.5) 07/17/23 19:20 Total Hemoglobin 11.4 g/dL (12-16) L 07/17/23 19:20 Sodium 133.0 mmol/L (131-143) 07/17/23 19:20 Potassium 4.4 mmol/L (3.5-5.0) 07/17/23 19:20 Glucose 167.0 mg/dL (70-115) H 07/17/23 19:20 Ionized Calcium 1.2 mmol/L (1.1-1.4) 07/17/23 19:20 O2 Delivery Device None 07/17/23 19:20 FiO2 21.0 % 07/17/23 19:20 Cook House Supervisor ID Alewe 07/17/23 19:20 Sodium 132 mmol/L (136-145) L 07/18/23 05:10 Potassium 4.2 mmol/L (3.5-5.1) 07/18/23 05:10 Chloride 98 mmol/L (98-107) 07/18/23 05:10 Carbon Dioxide 24 mmol/L (22-29) 07/18/23 05:10 Anion Gap 14.2 (5-19) 07/18/23 05:10 BUN 14 mg/dL (8-23) 07/18/23 05:10 Creatinine 0.6 mg/dL (0.5-0.9) 07/18/23 05:10 GFR Calculation Not Reportable 07/18/23 05:10 Glucose 124 mg/dL (65-115) H 07/18/23 05:10 Calculated Osmolality 276 mOsm/kg (285-295) L 07/18/23 05:10 Lactic Acid 3.5 mmol/L (0.5-2.2) H 07/17/23 18:21 Calcium 8.8 mg/dL (8.5-10.5) 07/18/23 05:10 Total Bilirubin 0.2 mg/dL (0.15-1.2) 07/17/23 18:21 AST 19 U/L (0-32) 07/17/23 18:21 ALT 12 U/L (0-33) 07/17/23 18:21 Alkaline Phosphatase 102 U/L (35-105) 07/17/23 18:21 Troponin T Baseline 12 ng/L (0-10) H 07/17/23 18:21 Troponin T 120 Minute 10.64 ng/L (0-10) H 07/17/23 20:24 Delta Troponin T -1.36 ABS# (0-10) L 07/17/23 20:24 Troponin T Hi Sens 6Hr 11.91 ng/L (0-10) H 07/18/23 00:40 Troponin T Hi Sens 6Hr Delta -0.09 ng/L (0-12) L 07/18/23 00:40 NT-Pro-B Natriuret Pep 452 pg/mL (0-450) H 07/17/23 18:21 Total Protein 7.5 g/dL (6.6-8.7) 07/17/23 18:21 Albumin 3.7 g/dL (3.5-5.2) 07/17/23 18:21 Globulin 3.8 g/dL (1.3-4.6) 07/17/23 18:21 Vitals Last Vital Signs Temp 98.4 F 07/18/23 07:45 Pulse 93 07/18/23 07:45 Resp 18 07/18/23 07:45 BP 145/82 07/18/23 07:45 Pulse Ox 97 07/18/23 07:45 O2 Del Method Nasal Cannula 07/18/23 07:45 O2 Flow Rate 2 07/18/23 07:45 Discharge Plan Discharge Patient Disposition: Home Condition: Stable Prescriptions: New oseltamivir [Tamiflu] 30 mg Capsule 30 mg PO BID 2 Days Qty: 4 0RF Continued ICaps AREDS2 250 mg-200 unit -12.5 mg-1 mg capsule 1 cap PO DAILY mecobalamin (vitamin B12) 1,000 mcg tablet,disintegrating 1,000 mcg sublingual DAILY 30 Days Qty: 30 2RF Rx Instructions: place tablet under tongue and allow to dissolve for at least30 secs before swallowing albuterol sulfate [ProAir HFA] 90 mcg/actuation HFA aerosol inhaler 2 inh inhalation Q6H PRN (Reason: Shortness Of Breath) Qty: 8.5 2RF ondansetron HCl 4 mg tablet 4 mg PO Q8H PRN (Reason: Nausea And Vomiting) pantoprazole [Protonix] 40 mg tablet,delayed release (DR/EC) 40 mg PO DAILY PRN (Reason: Heartburn) Incruse Ellipta 62.5 mcg/actuation blister with device 1 inh inhalation DAILY Qty: 30 3RF lactulose 20 gram/30 mL solution 20 g PO DAILY 30 Days Qty: 1200 0RF diazepam 5 mg tablet 5 mg PO TID PRN (Reason: anxiety) 30 Days Qty: 90 4RF (DME) nebulizers [MicroAir Mesh Nebulizer] [facility] [place] See Rx Instructions .Route Qty: 1 0RF Rx Instructions: As directed Q6h PRN Needs tubing and mask/mouthpiece levothyroxine 25 mcg tablet See Rx Instructions .ROUTE .COMPLEX Qty: 15 5RF Dose Instruction: TAKE ONE-HALF TABLET (12.5 MCG) BY MOUTH DAILY FOR 30 DAYS Rx Instructions: TAKE ONE-HALF TABLET (12.5 MCG) BY MOUTH DAILY FOR 30 DAYS chlorhexidine gluconate 0.12 % mouthwash See Rx Instructions .ROUTE .COMPLEX Qty: 473 2RF Dose Instruction: USE ONE-HALF OUNCE (15 ML) BY MOUTH TWICE DAILY Rx Instructions: USE ONE-HALF OUNCE (15 ML) BY MOUTH TWICE DAILY albuterol sulfate 2.5 mg /3 mL (0.083 %) solution for nebulization 1.25 mg inhalation Q6H PRN (Reason: bronchospasm) Qty: 90 2RF sennosides-docusate sodium [Senna-S] 8.6-50 mg tablet 2 tab-cap PO BID Qty: 60 0RF prednisone 20 mg tablet 40 mg PO QAM 28-800 mg-mcg Tablet 1 tab PO DAILY cyclobenzaprine 10 mg tablet 10 mg PO DAILY PRN (Reason: Muscle Spasm) fluticasone propionate 50 mcg/actuation spray,suspension 1 spray intranasal BID Symbicort 160-4.5 mcg/actuation HFA aerosol inhaler 1 puff inhalation BID Mucinex 600 mg tablet extended release 12hr 600 mg PO Q12H Discontinued oseltamivir [Tamiflu] 75 mg capsule 75 mg PO BID 5 Days Qty: 10 0RF Referrals: Darci Fried MD [Physician] - 7-10 days PARISH Mabry FNP [Primary Care Provider] - 4-7 days Discharge Diet: Cardiac Discharge Activity: Resume usual activity Patient Instructions: Opioid Safety Discharge Attestations Time Spent in Discharge Care*: less than 30 min Status at Discharge: Cognitive status at discharge: cognitively intact, Behavioral status at discharge: cooperative, Quality Metrics Clinical Quality Measures [ No reported AMI, CVA or VTE this stay] Coding Level of Care Code Acute Code for Chg Fwd Diagnoses Bilateral pleural effusion J90 COPD (chronic obstructive pulmonary disease) J44.9 Small cell carcinoma of lung C34.90 Influenza B J10.1 Hyponatremia E87.1
--- NOTE | 2023-07-18 09:27 | PC.CHAP ---
Pastoral Care Encounter/Spiritual Assessment Type of Contact [] Declined health concierge visit [] Patient/Family/Request visit [] Outpatient visit [] Follow-up visit [] Physician referral [] Code/Alert [] Routine visit [] Staff referral [] Actively dying [] Patient sleeping [] Family support [] [] Out of room [] Palliative care [] [] Receiving care in room [] Pre-surgical visit [] Trauma [] Long length of stay [] ICU visit [x] Other:Contact precautions. No visit Relational/Emotional Strength [] Patient feels connected with others/family/visitors/staff [] Distress [] Loneliness/isolation [] Abandonment Spirituality of Patient [] Person of Ruby [] Attends Adventist of their Ruby [] Believes in Prayer [] Reads Bible or Hindu materials [] There are Spiritual issues to be addressed [employer]ping [employer] Interventions [] Prayer [] Active listening [] Non-anxious presence [] Spiritual/emotional support [] Crisis/trauma care [] Spiritual counseling [] Bereavement support [] Provided bereavement packet [] Provided Bible/devotional materials [] Provided toy/stuffed animal, coloring book to patient or family member [] Provided Communion [] Anointing/Point Comfort [] Salvation [] Completed spiritual assessment [] Other: Impact on Illness or Injury [] Angry [] Fearful [] Anxious [] Often cries [] Exhaustion [] Unable to work [] Unable to attend synagogue [] Unable to walk/stand [] Unable to read [] Unable to drive [] Unable to eat/drink [] Unable to sleep [] Unable to be with family [] Patient intubated [] Other: Summary Time spent with patient
[2023-07-18] MEDS: oseltamivir phosphate 30 mg Capsule PO (09:29)
[2023-07-18] MEDS: pantoprazole DR 40 mg Tablet PO (09:29)
--- NOTE | 2023-07-18 12:01 | XR_ITS ---
WS: [id number] XR chest 1V portable [id number] REASON FOR EXAM: post thora FINDINGS: Compared to the previous examination of 07/17/2023, there has been removal of a significant amount of p leural effusion from the right chest. There are small areas of atelectasis in the reexpanding right lower lobe. There is no pneumothorax. Mediastinal mass again noted. XR/XR chest 1V portable [id number] IMPRESSION: Large volume right thoracentesis without complication.
--- NOTE | 2023-07-18 12:04 | PC.NURSE ---
THORACENTESIS 1137 VS: 143/72, 98%RA, 92heart rate, 97.4 oral temp, RR 16 1149 Time out performed, all present in agreeance 1150 procedure start, VS: 138/85, 100% RA, 91heart rate, RR 16 1153 VS: 160/82, 100%RA. 90HR, RR18 1157 procedure complete VS: 161/87, 100%RA, 90heart rate, RR18 patient tolerated procedure well. [facility]. patient placed back in bed, Stat CXR order per Dr. Penn at bedside
[2023-07-18 12:37] LABS: Body Fluid Polynuclear #Cells 0.014; Body Fluid WBC 1011 /uL; Monocytes # Body Fluid 0.997
[2023-07-18 12:39] LABS: Apprearance, Body Fluid CLOUDY; Color, Body Fluid YELLOW; PATH Referral YES
[2023-07-18 12:59] LABS: Albumin Body Fluid 2.4 g/dL; Creatinine Body Fluid 0.63 (0.5-0.9); Fluid Laterality RIGHT PLEURAL FLUID; LDH Pleural Fluid 133 U/L; Total Protein Pleural Fluid 4.6 g/dL; Triglycerides, Pleural Fluid 13 mg/dL
--- NOTE | 2023-07-18 15:15 | PC.NURSE ---
Discharge Note Patient discharged to home via personal transport accompanied by daughter. Discharge instructions reviewed with patient and/or direct marketing representative. Mobile pharmacy medications and/or prescriptions provided. Belongings/home medications returned.
--- NOTE | 2023-07-18 22:11 | US_ITS ---
WS: [id number] ULTRASOUND-GUIDED THORACENTESIS CLINICAL INFORMATION: right pleural effusion PROCEDURE: Informed consent: The risks, benefits, and alternatives of the procedure were discussed with the esthela ent. Verbal and written consent was obtained. Timeout: A timeout was performed to confirm the correct patient, procedure, and site. Site: RIGHT chest Preparation: A suitable skin site was identified. The patient was prepped and draped in usual sterile fashion. Lidocaine 1% was used for local anesthesia. Catheter: 4 Amharic One-Step catheter. Fluid Volume: 1000 ml Color: Clear yellow Complications: None. / thoracentesis [id number] IMPRESSION: Uncomplicated ultrasound-guided RIGHT thoracentesis with removal of 1000 cc.
== END 2023-07-18 15:18 | disposition home or self-care (01) ==
LOC: ER 21:17 → MEDSURG 21:23
PROVIDERS: Emergency Medicine; Admitting Provider Internal Medicine; Emergency Provider Physician Assistant; PCP Nurse Practitioner Family; Visit Provider Internal Medicine
DX: J90 Pleural effusion, not elsewhere classified (principal); J44.9 Chronic obstructive pulmonary disease, unspecified; C34.90 Malignant neoplasm of unspecified part of unspecified bronchus or lung; J10.1 Influenza due to other identified influenza virus with other respiratory manifestations; E87.1 Hypo-osmolality and hyponatremia; E78.5 Hyperlipidemia, unspecified; K21.9 Gastro-esophageal reflux disease without esophagitis; F41.9 Anxiety disorder, unspecified; F32.A Depression, unspecified; F17.200 Nicotine dependence, unspecified, uncomplicated
CPT/HCPCS: 32555; 36415; 36600; 71045; 71250; 80048; 80051; 80053; 80503; 82042; 82330; 82570; 82805; 82945; 83605; 83615; 83880; 83986; 84157; 84478; 84484; 85014; 85025; 85610; 85730; 87015; 87070; 87075; 87116; 87205; 87206; 87801; 89050; 93005; 94640; 96374; 99285; G0378; J1940; J2919; J7030; J7626

== ENCOUNTER 2023-07-22 19:17 | Inpatient (IN) | payer MEDICARE, MEDICAID, SELFPAY ==
[2023-07-22 19:18] VITALS: BP 133/73; PULSE 103; RESP 18; TEMP 36.5; O2SAT 93; BMI 19.7
--- NOTE | 2023-07-22 19:23 | XRR_ITS ---
PROCEDURE INFORMATION: Exam: XR Chest Exam date and time: 07/22/2023 7:55 PM Age: 82 years old Clinical indication: Shortness of breath; Additional info: SOB TECHNIQUE: Imaging protocol: Radiologic exam of the chest. Views: 1 view. COMPARISON: CR XR chest 1V portable [id number] 07/18/2023 12:29 PM FINDINGS: Lungs: Unremarkable. No consolidation. Pleural spaces: Small to moderate bilateral pleural effusions. Heart/Mediastinum: Unremarkable. No cardiomegaly. Bones/joints: Unremarkable. XR/XR chest 1V portable [id number] IMPRESSION: Small to moderate bilateral pleural effusions.
--- NOTE | 2023-07-22 19:24 | ECG_ITS ---
[facility] Test Date: 2023-07-22 Pat Name: Ludin Gramajo Department: Room: Gender: Female Retirement Plan Counselor: : 1940 Requested By: Miguel Ángel Meredith Order Number: [id number] Maritza MD: Lavell Siegel M.D. Measurements Intervals [place] Rate: 99 P: 60 TX: 128 QRS: -3 QRSD: 87 T: 68 QT: 344 QTc: 442 Interpretive Statements SINUS RHYTHM LOW QRS VOLTAGE IN PRECORDIAL LEADS [QRS DEFLECTION < 1.0 mV IN CHEST LEADS] SEPTAL MYOCARDIAL INFARCTION , OF INDETERMINATE AGE [40+ ms Q WAVE IN V1/V2] Compared to ECG 07/18/2023 01:34:50 Low QRS voltage now present Myocardial infarct finding still present Electronically Signed On 07-22-2023 23:21:12 CDT by Lavell Siegel M.D. [email or web address]
--- NOTE | 2023-07-22 19:34 | ED_ITS ---
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 She also had some slight shortness of breath. Associated symptoms: Denies chest pain, chills, dysuria, fever(s), headache(s), nausea or vomiting Review of Systems 2 Const: Reports: fatigue and malaise; Denies: fever(s), chills, body aches or change in appetite Eyes: Denies: blurry vision or eye discomfort ENMT: Denies: throat pain or dental pain Card: Denies: chest pain Resp: Reports: dyspnea GI: Denies: abdominal pain, nausea, vomiting or diarrhea : Denies: dysuria Musc: Denies: neck pain or back pain Skin/Breast: Denies: rash Neuro: Denies: headache(s) PFSH ED 2 PFSH: Medical History Influenza B 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 Emphysema/COPD Acute bacterial sinusitis Shortness of breath Small cell carcinoma Acute diverticulitis Acute sinusitis Adverse effect of drug or medicament Pneumonia Nicotine dependence, cigarettes, uncomplicated History of colonic polyps Hypercholesterolemia Anxiety and depression Fatigue Weight loss Environmental and seasonal allergies Breast cancer screening by mammogram GERD (gastroesophageal reflux disease) Multiple lung nodules 5mm right upper lobe 3mm right lower lob (CT ) Diverticulosis Vitamin B12 deficiency COPD (chronic obstructive pulmonary disease) Vitamin D deficiency Surgical History History of colonoscopy Multiple colonoscopy procedures History of colon surgery Cecal repair following colonoscopy Status post carpal tunnel release of both wrists History of neck surgery Removal of benign tumor from the right side of the neck/postauricular area Status post cholecystectomy (2014) Family History Brother Lung disease Other CAD (coronary artery disease) Cancer Denies family history of Diabetes Clotting disorder Dementia Hyperlipidemia Psychiatric illness Chronic kidney disease (CKD) Suicide Anesthesia complication Bleeding disorder Hypertension Stroke Social History Smoking and tobacco/nicotine status: current every day tobacco/nicotine user Quit status (tobacco/nicotine): has quit using Year quit tobacco: 2021 Former quit date comment: 1 ppd X 60 Alcohol intake: never Substance/Drug Use: never Lives independently: Yes Household members: none Physical Exam 2 Const: COMMON NORMALS: patient oriented x3 GENERAL APPEARANCE: ill appearing HENMT: COMMON NORMALS: normocephalic and atraumatic HEAD & SCALP: n ormocephalic and atraumatic Eye: COMMON NORMALS: Equal, round and reactive pupils present and EOMs intact bilaterally PUPIL: Yes Equal, round and reactive pupils present Neck/C-Spine: COMMON NORMALS: full ROM and supple Chest: COMMONS NORMALS: normal inspection of the chest and normal palpation of entire chest wall Resp: COMMON NORMALS: normal respiratory effort, No retractions and No use of accessory muscles AUSCULTATION: rales Cardio: COMMON NORMALS: regular rate, regular rhythm and No murmurs present (Cardio) RATE: regular rate RHYTHM: regular rhythm GI: COMMON NORMALS: Normal to inspection, nondistended, normoactive bowel sounds present, Soft to palpation, non-tender and no masses PALPATION: Yes Soft to palpation Extremity: COMMON NORMALS: normal to inspection and full ROM Neuro: COMMON NORMALS: patient oriented x3, moves all extremities and no focal motor deficits Psych: COMMON NORMALS: mental status grossly normal, Normal thought process present and cooperative THOUGHT PROCESS: Normal thought process present Skin: COMMON NORMALS: no rashes or lesions noted and no wounds GENERAL SKIN EXAM: no rashes or lesions noted Course 2 Vital Signs: Vital signs: Vital Signs Temperature 97.7 F 07/22/23 19:18 Pulse Rate 102 H 07/22/23 21:29 Respiratory Rate 19 H 07/22/23 21:29 Blood Pressure 136/60 07/22/23 21:29 Pulse Oximetry 92 07/22/23 21:29 Oxygen Delivery Me thod Room Air 07/22/23 19:18 MDM - Weakness Medical Decision Making Patient presents here with weakness along with shortness of breath x-ray shows a possible right lower lobe pneumonia we will start antibiotics spoke to the hospitalist will admit at this time. Medical Records I reviewed the patient's medical records. Lab Data I reviewed the patient's lab results. 07/22/23 19:44 07/22/23 19:44 Radiology Impressions Chest X-Ray 07/22/23 19:23 IMPRESSION: Small to moderate bilateral pleural effusions. Laboratory Results WBC 12.45 10^3/uL (3.29-11.43) H 07/22/23 19:44 RBC 4.43 10^6/uL (3.85-5.65) 07/22/23 19:44 Hgb 12.60 g/dL (11.27-16.99) 07/22/23 19:44 Hct 38.0 % (36-47) 07/22/23 19:44 MCV 85.8 fl (85-98) 07/22/23 19:44 MCH 28.4 pg (27-33) 07/22/23 19:44 MCHC 33.2 g/dL (30-55) 07/22/23 19:44 RDW 13.6 % (12.1-15.1) 07/22/23 19:44 Plt Count 361 10^3/cmm (157-399) 07/22/23 19:44 MPV 8.6 fL (7.4-10.4) 07/22/23 19:44 Neut % (Auto) 87.0 % 07/22/23 19:44 Lymph % (Auto) 5.1 % 07/22/23 19:44 [place] % (Auto) 3.8 % 07/22/23 19:44 Eos % (Auto) 2.0 % 07/22/23 19:44 Baso % (Auto) 0.3 % 07/22/23 19:44 Neut # (Auto) 10.82 10^3/uL (1.8-7.7) H 07/22/23 19:44 Lymph # (Auto) 0.6 10^3/uL (0.8-4.8) L 07/22/23 19:44 [place] # (Auto) 0.5 10^3/uL (0.2-0.9) 07/22/23 19:44 Eos # (Auto) 0.3 10^3/uL (0.0-0.8) 07/22/23 19:44 Baso # (Auto) 0.0 10^3/uL (0.0-0.1) 07/22/23 19:44 Nucleated RBC % (auto) 0 % 07/22/23 19:44 Nucleated RBCs # 0.0 /100WBC 07/22/23 19:44 Sodium 132 mmol/L (136-145) L 07/22/23 19:44 Potassium 4.4 mmol/L (3.5-5.1) 07/22/23 19:44 Chloride 95 mmol/L (98-107) L 07/22/23 19:44 Carbon Dioxide 27 mmol/L (22-29) 07/22/23 19:44 Anion Gap 14.4 (5-19) 07/22/23 19:44 BUN 23 mg/dL (8-23) 07/22/23 19:44 Creatinine 0.7 mg/dL (0.5-0.9) 07/22/23 19:44 GFR Calculation Not Reportable 07/22/23 19:44 Glucose 123 mg/dL (65-115) H 07/22/23 19:44 Calculated Osmolality 279 mOsm/kg (285-295) L 07/22/23 19:44 Calcium 8.8 mg/dL (8.5-10.5) 07/22/23 19:44 Total Bilirubin 0.4 mg/dL (0.15-1.2) 07/22/23 19:44 AST 23 U/L (0-32) 07/22/23 19:44 ALT 24 U/L (0-33) 07/22/23 19:44 Alkaline Phosphatase 297 U/L (35-105) H 07/22/23 19:44 NT-Pro-B Natriuret Pep 207 pg/mL (0-450) 07/22/23 19:44 Total Protein 7.7 g/dL (6.6-8.7) 07/22/23 19:44 Albumin 3.5 g/dL (3.5-5.2) 07/22/23 19:44 Globulin 4.2 g/dL (1.3-4.6) 07/22/23 19:44 Urine Color Yellow (Yellow) 07/22/23 20:46 Urine Appearance Clear (CLEAR) 07/22/23 20:46 Urine pH 5 (5-7) 07/22/23 20:46 Ur Specific [place] 1.020 (1.005-1.030) 07/22/23 20:46 Urine Protein Neg (Negative) 07/22/23 20:46 Urine Glucose (UA) Norm (Normal) 07/22/23 20:46 Urine Ketones 1+ (Negative) H 07/22/23 20:46 Urine Blood Neg (Negative) 07/22/23 20:46 Urine Nitrate Negative (Negative) 07/22/23 20:46 Urine Bilirubin Neg (Negative) 07/22/23 20:46 Urine Urobilinogen Neg mg/dL (Negative) 07/22/23 20:46 Ur Leukocyte Esterase Negative (Negative) 07/22/23 20:46 All radiology interpretation(s) finalized by discharge EKG Data EKG 1: I personally reviewed and interpreted this EKG as follows: EKG interpretation date: 07/22/23 EKG interpretation time: 19:28 Interpretation: nsr hr [address] or t wave abnormalities qrs 87 qtc 400 Discharge Plan Discharge Patient Disposition: Admitted As Inpatient Clinical Impression: Weakness, Small cell carcinoma of lung, Pneumonia Condition: Stable Prescriptions: No Action ICaps AREDS2 250 mg-200 unit -12.5 mg-1 mg capsule 1 cap PO DAILY mecobalamin (vitamin B12) 1,000 mcg tablet,disintegrating 1,000 mcg sublingual DAILY 30 Days Qty: 30 2RF Rx Instructions: place tablet under tongue and allow to dissolve for at least30 secs before swallowing albuterol sulfate [ProAir HFA] 90 mcg/actuation HFA aerosol inhaler 2 inh inhalation Q6H PRN (Reason: Shortness Of Breath) Qty: 8.5 2RF ondansetron HCl 4 mg tablet 4 mg PO Q8H PRN (Reason: Nausea And Vomiting) pantoprazole [Protonix] 40 mg tablet,delayed release (DR/EC) 40 mg PO DAILY PRN (Reason: Heartburn) Incruse Ellipta 62.5 mcg/actuation blister with device 1 inh inhalation DAILY Qty: 30 3RF lactulose 20 gram/30 mL solution 20 g PO DAILY 30 Days Qty: 1200 0RF diazepam 5 mg tablet 5 mg PO TID PRN (Reason: anxiety) 30 Days Qty: 90 4RF (DME) nebulizers [MicroAir Mesh Nebulizer] [facility] [place] Instructions .Route Qty: 1 0RF Rx Instructions: As directed Q6h PRN Needs tubing and mask/mouthpiece levothyroxine 25 mcg tablet See Rx Instructions .ROUTE .COMPLEX Qty: 15 5RF Dose Instruction: TAKE ONE-HALF TABLET (12.5 MCG) BY MOUTH DAILY FOR 30 DAYS Rx Instructions: TAKE ONE-HALF TABLET (12.5 MCG) BY MOUTH DAILY FOR 30 DAYS albuterol sulfate 2.5 mg /3 mL (0.083 %) solution for nebulization 1.25 mg inhalation Q6H PRN (Reason: bronchospasm) Qty: 90 2RF chlorhexidine gluconate 0.12 % mouthwash See Rx Instructions .ROUTE .COMPLEX Qty: 473 2RF Dose Instruction: USE ONE-HALF OUNCE (15 ML) BY MOUTH TWICE DAILY Rx Instructions: USE ONE-HALF OUNCE (15 ML) BY MOUTH TWICE DAILY Symbicort 160-4.5 mcg/actuation HFA aerosol inhaler 1 puff inhalation BID Qty: 10.2 2RF sennosides-docusate sodium [Senna-S] 8.6-50 mg tablet 2 tab-cap PO BID Qty: 60 0RF prednisone 20 mg tablet 40 mg PO QAM 28-800 mg-mcg Tablet 1 tab PO DAILY cyclobenzaprine 10 mg tablet 10 mg PO DAILY PRN (Reason: Muscle Spasm) fluticasone propionate 50 mcg/actuation spray,suspension 1 spray intranasal BID Mucinex 600 mg tablet extended release 12hr 600 mg PO Q12H Referrals: PARISH Mabry, WING MAILER MACHINE OPERATOR [Primary Care Provider] - Coding Level of Care Code ED Technician Plant And Maintenance for Wilfrid Lorenzana
[2023-07-22] MEDS: ondansetron 2 mg/ML SDV 2 mL 4 MG IVP (19:46)
[2023-07-22 20:00] LABS: Basophils % 0.3 %; Eosinophils # 0.3 10^3/uL (0.0-0.8); Lymphocytes # 0.6 10^3/uL (0.8-4.8); Lymphocytes % 5.1 %; Mean Corpuscular HGB Conc 33.2 g/dL (30-55); Mean Corpuscular Hemoglobin 28.4 pg (27-33); Mean Corpuscular Volume 85.8 fl (85-98); Mean Platelet Volume 8.6 fL (7.4-10.4); Monocytes # 0.5 10^3/uL (0.2-0.9); Monocytes % 3.8 %; Neutrophils # 10.82 10^3/uL (1.8-7.7); Nucleated Red Blood Cells % 0 %; Platelet Count 361 10^3/cmm (157-399); Red Blood Count 4.43 10^6/uL (3.85-5.65); Red Cell Distribution Width 13.6 % (12.1-15.1); White Blood Count 12.45 10^3/uL (3.29-11.43)
[2023-07-22 20:05] VITALS: BP 138/76; PULSE 99; RESP 18; O2SAT 92
[2023-07-22 20:28] LABS: Alanine Aminotransferase 24 U/L (0-33); Albumin Level 3.5 g/dL (3.5-5.2); Alkaline Phosphatase 297 U/L (35-105); Anion Gap 14.4 (5-19); Aspartate Amino Transferase 23 U/L (0-32); Blood Urea Nitrogen 23 mg/dL (8-23); Calcium 8.8 mg/dL (8.5-10.5); Carbon Dioxide 27 mmol/L (22-29); Chloride 95 mmol/L (98-107); Creatinine Clr Calc Pharmacy 47.5338; Globulin 4.2 g/dL (1.3-4.6); Glucose 123 mg/dL (65-115); NT Pro B Type Natriuretic Pept 207 pg/mL (0-450); Osmolality Calculated 279 mOsm/kg (285-295); Potassium 4.4 mmol/L (3.5-5.1); Sodium 132 mmol/L (136-145); Total Bilirubin 0.4 mg/dL (0.15-1.2); Total Protein 7.7 g/dL (6.6-8.7)
[2023-07-22 20:48] VITALS: BP 144/68; PULSE 103; RESP 20; O2SAT 96
[2023-07-22 20:56] LABS: Add Urine Microscopic? NO; Charge for UA Resulting for Rev
[2023-07-22 21:08] LABS: Bilirubin Urine Neg (Negative); Blood Urine Neg (Negative); Glucose Urine UA Norm (Normal); Ketones Urine 1+ (Negative); Leukocyte Esterase Urine Negative (Negative); Nitrate Urine Negative (Negative); Protein Urine Neg (Negative); Urine Appearance Clear (CLEAR); Urine Color Yellow (Yellow); Urobilinogen Urine Neg (Negative); pH Urine 5 (5-7)
[2023-07-22 21:29] VITALS: BP 136/60; PULSE 102; RESP 19; O2SAT 92
--- NOTE | 2023-07-22 21:52 | ECG_ITS ---
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 Measurements Intervals Central Rate: 98 P: 71 PA: 131 QRS: -7 QRSD: 90 T: 73 QT: 341 QTc: 437 Interpretive Statements SINUS RHYTHM LOW QRS VOLTAGE [QRS DEFLECTION < 0.5/1.0 mV IN LIMB/CHEST LEADS] SEPTAL MYOCARDIAL INFARCTION , OF INDETERMINATE AGE [40+ ms Q WAVE IN V1/V2] Compared to ECG 07/22/2023 19:28:37 No significant changes Electronically Signed On 07-22-2023 23:21:03 CDT by Lavell Siegel M.D. [id number]
--- NOTE | 2023-07-22 21:56 | PM.HP ---
Providers/Chief Complaint Admitting Physician: Kamran Peralta MD Primary Care Provider: SHIKHA Ovalles Chief Complaint: SOB History of Present Illness Ludin Gramajo is a 82 year old female with a past medical history of mediastinal hilar lymphadenopathy, COPD, emphysema, small cell's lung cancer, has declined any further chemo or radiation, currently not on any treatment, recently had a hospitalization for bilateral pleural effusions, requiring thoracocentesis, who presents to [facility] due to increased shortness of breath fatigue, malaise, productive cough. Patient tells me that she lives at home by herself, she has been feeling increasingly weak, short of breath, short of breath with exertion, with a productive cough, no fevers, no chills does report fatigue, malaise, poor appetite Review of Systems Const: Reports: fatigue and malaise; Denies: fever(s) Eyes: Denies: change in vision Card: Denies: chest pain Resp: Reports: dyspnea and productive cough GI: Denies: abdominal pain Neuro: Denies: headache(s) Medications/Allergies Home Medications Medication Instructions Recorded Confirmed Last Taken Type vit C 250 mg-vit E 200 unit-zinc 1 cap PO DAILY 09/19/21 07/18/23 12/29/21 History ox 12.5 js-[id number]-luhlkz-zeax capsule (ICaps AREDS2) sennosides 8.6 mg-docusate sodium 2 tab-cap (2 x 8.6-50 mg) PO BID 02/27/23 07/18/23 Unknown Rx 50 mg tablet (Senna-S) #60 tabs lactulose 20 gram/30 mL oral 20 g (30 mL) PO DAILY 30 days 04/04/23 07/18/23 Unknown Rx solution #1,200 mL diazepam 5 mg tablet 5 mg PO TID PRN anxiety 30 days 04/18/23 07/18/23 Unknown Rx #90 tabs albuterol sulfate 90 mcg/actuation 2 inh inhalation Q6H PRN Shortness 04/30/23 07/18/23 Unknown Rx aerosol inhaler (ProAir HFA) Of Breath #8.5 grams mecobalamin (vitamin B12) 1,000 1,000 mcg sublingual DAILY 30 days 04/30/23 07/18/23 Unknown Rx mcg disintegrating #30 tabs tablet,sublingual nebulizers (MicroAir Mesh #1 ea 05/10/23 07/18/23 Unknown Rx Nebulizer misc) levothyroxine 25 mcg tablet See Rx Instructions .Route 05/15/23 07/18/23 Unknown Rx .COMPLEX #15 tabs ondansetron HCl 4 mg tablet 4 mg PO Q8H PRN Nausea And Vomiting 06/05/23 07/18/23 Unknown History pantoprazole 40 mg tablet,delayed 40 mg PO DAILY PRN Heartburn 06/05/23 07/18/23 Unknown History release (Protonix) umeclidinium 62.5 mcg/actuation 1 inh inhalation DAILY #30 ea 06/05/23 07/18/23 Unknown Rx blister powder for inhalation (Incruse Ellipta) albuterol sulfate 2.5 mg/3 mL 1.25 mg (1.5 mL) inhalation Q6H 06/11/23 07/18/23 Unknown Rx (0.083 %) solution for nebulization PRN bronchospasm #90 mL cyclobenzaprine 10 mg tablet 10 mg PO DAILY PRN Muscle Spasm 07/18/23 07/18/23 Unknown History fluticasone propionate 50 1 spray intranasal BID 07/18/23 07/18/23 Unknown History mcg/actuation nasal spray,suspension guaifenesin 600 mg tablet, 600 mg PO Q12H 07/18/23 07/18/23 Unknown History extended release 12 hr (Mucinex) prednisone 20 mg tablet 40 mg PO QAM 07/18/23 07/18/23 Unknown History vit no.133-ferrous 1 tab PO DAILY 07/18/23 07/18/23 Unknown History fumarate 28 mg-folic acid 800 mcg tablet () budesonide-formoterol HFA 160 1 puff inhalation BID #10.2 grams 07/22/23 Unknown Rx mcg-4.5 mcg/actuation aerosol inhaler (Symbicort) chlorhexidine gluconate 0.12 % See Rx Instructions .Route 07/22/23 Unknown Rx mouthwash .COMPLEX #473 mL Allergies Allergy/AdvReac Type Severity Reaction Status Date / Time ceftriaxone [From Rocephin] Allergy Mild rash Verified 07/22/23 19:25 clarithromycin [From Biaxin] Allergy unknown Verified 07/22/23 19:25 Gadolinium-Containing Allergy ALGY-Bliste Verified 07/22/23 19:25 Contrast Medi r Iodinated Contrast Media Allergy ALGY-Bliste Verified 07/22/23 19:25 r Penicillins Allergy itching Verified 07/22/23 19:25 Sulfa (Sulfonamide Allergy ADR-Itching Verified 07/22/23 19:25 Antibiotics) PFSH Acute PFSH: Medical History (Updated 07/22/23 @ 22:01 by Kamran Peralta MD) Small cell carcinoma Influenza B 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 Emphysema/COPD Acute bacterial sinusitis Shortness of breath Acute diverticulitis Acute sinusitis Adverse effect of drug or medicament Pneumonia Nicotine dependence, cigarettes, uncomplicated History of colonic polyps Hypercholesterolemia Anxiety and depression Fatigue Weight loss Environmental and seasonal allergies Breast cancer screening by mammogram GERD (gastroesophageal reflux disease) Multiple lung nodules 5mm right upper lobe 3mm right lower lob (CT ) Diverticulosis Vitamin B12 deficiency COPD (chronic obstructive pulmonary disease) Vitamin D deficiency Surgical History History of colonoscopy Multiple colonoscopy procedures History of colon surgery Cecal repair following colonoscopy Status post carpal tunnel release of both wrists History of neck surgery Removal of benign tumor from the right side of the neck/postauricular area Status post cholecystectomy (2014) Family History Brother Lung disease Other CAD (coronary artery disease) Cancer Denies family history of Diabetes Clotting disorder Dementia Hyperlipidemia Psychiatric illness Chronic kidney disease (CKD) Suicide Anesthesia complication Bleeding disorder Hypertension Stroke Social History Smoking and tobacco/nicotine status: current every day tobacco/nicotine user Quit status (tobacco/nicotine): has quit using Year quit tobacco: 2021 Former quit date comment: 1 ppd X 60 Alcohol intake: never Substance/Drug Use: never Lives independently: Yes Household members: none Vitals/I&O/Wt Last Vital Signs Temp 97.7 F 07/22/23 19:18 Pulse 102 H 07/22/23 21:29 Resp 19 H 07/22/23 21:29 BP 136/60 07/22/23 21:29 Pulse Ox 92 07/22/23 21:29 O2 Del Method Room Air 07/22/23 19:18 Weight last 48 hrs Weight 52.163 kg Physical Exam Const: COMMON NORMALS: no acute distress and patient oriented x3 HENMT: COMMON NORMALS: normocephalic HEAD & SCALP: normocephalic Eye: COMMON NORMALS: Equal, round and reactive pupils present and EOMs intact bilaterally Neck/C-Spine: COMMON NORMALS: full ROM and no lymphadenopathy Resp: COMMON NORMALS: normal respiratory effort, No retractions, No use of accessory muscles and clear to auscultation bilaterally AUSCULTATION: clear to auscultation bilaterally Cardio: COMMON NORMALS: regular rate, regular rhythm, S1 normal heart sound present and S2 normal heart sound present RATE: regular rate RHYTHM: regular rhythm HEART SOUNDS: S1 normal heart sound present and S2 normal heart sound present GI: COMMON NORMALS: Normal to inspection, nondistended, normoactive bowel sounds present, Soft to palpation and non-tender Extremity: COMMON NORMALS: no calf tenderness and no pedal edema Neuro: COMMON NORMALS: patient oriented x3, CN's II-XII intact bilaterally and moves all extremities Psych: COMMON NORMALS: mental status grossly normal Data 07/22/23 19:44 07/22/23 19:44 A&P Assessment and plan (1) Pneumonia: (2) Emphysema/COPD: Qualifiers: Emphysema type: unspecified Qualified Code(s): J43.9 - Emphysema, unspecified (3) Shortness of breath: (4) Mediastinal lymphadenopathy: (5) Small cell carcinoma: (6) Cancer cachexia: Plan Right lower lobe pneumonia -With leukocytosis, complaints of productive cough -Will start on vancomycin, aztreonam -Ultrasound thoracocentesis -Pleural studies Cancer cachexia, protein calorie malnutrition -Consult dietary -PT OT COPD -No active wheezing Small cell lung cancer -Patient declines any chemo or radiation therapy for her lung cancer -We did discuss hospice therapy, she is more agreeable to hospice, will discuss with case management in the morning DNR/DNI Lovenox for DVT prophylaxis Attestations Medical Necessity Statement*: Patient requires hospitalization, inpatient, greater than 2 midnights, for pneumonia, with history of small cell lung cancer, COPD Diagnoses Pneumonia J18.9 Pulmonary emphysema, unspecified emphysema type J43.9 Emphysema type: unspecified Shortness of breath R06.02 Mediastinal lymphadenopathy R59.0 Small cell carcinoma C80.1 Cancer cachexia R64
[2023-07-22] MEDS: aztreonam 2,000 MG in sodium chloride 0.9% (plus) 100 ML 200 MG IV (22:20)
[2023-07-22 22:40] VITALS: BP 134/67; PULSE 79; RESP 18; TEMP 36.4; O2SAT 96
[2023-07-22 22:51] VITALS: BMI 21.2
[2023-07-22 23:05] LABS: Troponin(5th) Baseline 13 ng/L (0-10)
[2023-07-22 23:07] LABS: Lactic Sepsis W/Reflex 1.1 mmol/L (0.5-2.2)
[2023-07-22 23:15] LABS: Procalcitonin 0.09 ng/mL (0-0.5)
--- NOTE | 2023-07-22 23:49 | ECG_ITS ---
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 Measurements Intervals [place] Rate: 97 P: 83 KS: 132 QRS: 61 QRSD: 87 T: 88 QT: 352 QTc: 449 Interpretive Statements SINUS RHYTHM ANTEROSEPTAL MYOCARDIAL INFARCTION , OF INDETERMINATE AGE [40+ ms Q WAVE IN V1-V4] Compared to ECG 07/22/2023 22:09:48 No significant changes Electronically Signed On 07-23-2023 23:02:14 CDT by Krunal Lynch M.D. [id number]
[2023-07-22 23:56] VITALS: BP 118/61; PULSE 97; RESP 17; TEMP 36.4; O2SAT 92
[2023-07-23] VITALS (12 sets, daily range): BP systolic 106–133; BP diastolic 70–77; PULSE 90–105; RESP 16–18; TEMP 36.2–37.1; O2SAT 90–100; BMI 21.2
[2023-07-23 00:19] LABS: Troponin 5 2HR 15.19 ng/L (0-10); Troponin 5 2HR Delta 2.19 ABS# (0-10)
[2023-07-23] MEDS: vancomycin 1,000 MG in sodium chloride 0.9% 250 ML 250 MG IV (00:54)
[2023-07-23] MEDS: levothyroxine 25 mcg Tablet 12.5 MCG PO ×2 (00:55→08:57)
[2023-07-23] MEDS: pantoprazole 40 mg SDV IVP ×2 (00:55→22:04)
[2023-07-23] MEDS: enoxaparin 40 mg/0.4 mL Syringe SUBCUT ×2 (00:55→22:04)
[2023-07-23] MEDS: diazePAM 5 mg Tablet PO (00:55)
[2023-07-23 03:58] LABS: Basophils % 0.4 %; Eosinophils # 0.3 10^3/uL (0.0-0.8); Eosinophils % 3.7 %; Hematocrit 37.3 % (36-47); Lymphocytes # 0.9 10^3/uL (0.8-4.8); Lymphocytes % 11.2 %; Mean Corpuscular HGB Conc 31.1 g/dL (30-55); Mean Corpuscular Hemoglobin 28.2 pg (27-33); Mean Corpuscular Volume 90.8 fl (85-98); Mean Platelet Volume 8.9 fL (7.4-10.4); Monocytes # 0.6 10^3/uL (0.2-0.9); Monocytes % 7.3 %; Neutrophils # 6.17 10^3/uL (1.8-7.7); Neutrophils % 76.7 %; Nucleated Red Blood Cells % 0 %; Platelet Count 281 10^3/cmm (157-399); Red Blood Count 4.11 10^6/uL (3.85-5.65); Red Cell Distribution Width 13.5 % (12.1-15.1); White Blood Count 8.05 10^3/uL (3.29-11.43)
--- NOTE | 2023-07-23 04:26 | ECG_ITS ---
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 Measurements Intervals [place] Rate: 102 P: 83 PA: 123 QRS: 52 QRSD: 92 T: 89 QT: 334 QTc: 436 Interpretive Statements SINUS TACHYCARDIA ANTEROSEPTAL MYOCARDIAL INFARCTION , OF INDETERMINATE AGE [40+ ms Q WAVE IN V1-V4] Compared to ECG 07/23/2023 00:02:34 Sinus rhythm no longer present Myocardial infarct finding still present Electronically Signed On 07-23-2023 23:02:26 CDT by Krunal Lynch M.D. [id number]
[2023-07-23 04:29] LABS: Alanine Aminotransferase 19 U/L (0-33); Albumin Level 2.7 g/dL (3.5-5.2); Alkaline Phosphatase 215 U/L (35-105); Anion Gap 17.3 (5-19); Aspartate Amino Transferase 20 U/L (0-32); Blood Urea Nitrogen 21 mg/dL (8-23); Calcium 8.2 mg/dL (8.5-10.5); Carbon Dioxide 19 mmol/L (22-29); Chloride 96 mmol/L (98-107); Creatinine Clr Calc Pharmacy 48.8672; Globulin 3.9 g/dL (1.3-4.6); Glucose 103 mg/dL (65-115); Osmolality Calculated 269 mOsm/kg (285-295); Potassium 4.3 mmol/L (3.5-5.1); Sodium 128 mmol/L (136-145); Total Bilirubin 0.3 mg/dL (0.15-1.2); Total Protein 6.6 g/dL (6.6-8.7)
[2023-07-23 04:30] LABS: Troponin 5 6HR 15.83 ng/L (0-10); Troponin 5 6HR Delta 2.83 ng/L (0-12)
[2023-07-23] MEDS: predniSONE 20 mg Tablet 40 MG PO (06:03)
[2023-07-23] MEDS: morphine 4 mg/mL SDV 1 mL 2 MG IVP ×2 (06:53→13:11)
--- NOTE | 2023-07-23 08:51 | PC.PHAR ---
PT STATES HOME [facility]Y COMES IN NOW AND SETS UP HER MEDICATIONS. NAME OF COMPANY IS UNKNOWN AT THIS TIME. (PT DOES NOT REMEMBER). WILL FOLLOW UP WITH THE NAME WHEN I FIND OUT.
[2023-07-23] MEDS: sennosides-docusate Tablet 2 TAB PO ×2 (08:57→17:48)
[2023-07-23] MEDS: aztreonam 1,000 MG in sodium chloride 0.9% (plus) 50 ML 100 MG IV (08:57)
--- NOTE | 2023-07-23 09:17 | PC.CHAP ---
Pastoral Care Encounter/Spiritual Assessment Type of Contact [] Declined numerical analysis group manager visit [] Patient/Family/Request visit [] Outpatient visit [] Follow-up visit [] Physician referral [] Code/Alert [x] Routine visit [] Staff referral [] Actively dying [] Patient sleeping [] Family support [] [] Out of room [] Palliative care [] [] Receiving care in room [] Pre-surgical visit [] Trauma [] Long length of stay [] ICU visit [] Other: Relational/Emotional Strength [x] Patient feels connected with others/family/visitors/staff [] Distress [] Loneliness/isolation [] Abandonment Spirituality of Patient [x] Person of Ruby [] Attends Mandaeism of their Ruby [x] Believes in Prayer [] Reads Bible or Church materials [] There are Spiritual issues to be addressed Clinical Statistical Programmer Interventions [x] Prayer [x] Active listening [] Non-anxious presence [x] Spiritual/emotional support [] Crisis/trauma care [] Spiritual counseling [] Bereavement support [] Provided bereavement packet [] Provided Bible/devotional materials [] Provided toy/stuffed animal, coloring book to patient or family member [] Provided Communion [] Anointing/[place] [] Salvation [x] Completed spiritual assessment [] Other: Impact on Illness or Injury [] Angry [] Fearful [] Anxious [] Often cries [] Exhaustion [] Unable to work [] Unable to attend yazidism [] Unable to walk/stand [] Unable to read [] Unable to drive [] Unable to eat/drink [] Unable to sleep [] Unable to be with family [] Patient intubated [] Other: Summary Time spent with patient 5 min
[2023-07-23] MEDS: budesonide 0.5 mg/2 mL Neb INHALATION ×2 (09:21→20:29)
--- NOTE | 2023-07-23 11:39 | P.PN_ITS ---
Subjective 2 Subjective: Patient is asking for hospice referral Spoke with her daughter as well Currently on 2 L Was trying to work with physical therapist at the bedside Clinically looks emaciated malnourished No active chest pain Vitals/I&O/Wt Last Vital Signs Temp 97.1 F L 07/23/23 10:59 Pulse 94 07/23/23 10:59 Resp 18 07/23/23 10:59 BP 107/70 07/23/23 10:59 Pulse Ox 94 07/23/23 10:59 O2 Del Method Nasal Cannula 07/23/23 10:59 O2 Flow Rate 1.5 07/23/23 09:20 07/22/23 07/23/23 07/23/23 22:59 06:59 14:59 Intake Total 450 / 450 170 / 170 Balance 450 / 450 170 / 170 Weight last 48 hrs Weight 55.928 kg Weight 55.928 kg Weight 52.163 kg Physical Exam 2 Narrative: Able to work with physical therapist with assistance Currently Bilateral breath sounds Mild rhonchi GCS 15 nonfocal neuroexam Pleasant and cooperative Stating mild distress secondary to shortness of breath Data 07/23/23 03:55 07/23/23 03:55 Micro: Microbiology 07/22/23 22:20 Blood Culture - Preliminary Blood SPECIMEN COLLECTED 07/22/23 22:25 Blood Culture - Preliminary Blood SPECIMEN COLLECTED A&P Assessment and plan (1) Risk for falls: (2) Anxiety: (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: (5) COPD (chronic obstructive pulmonary disease): Qualifiers: COPD type: unspecified COPD Qualified Code(s): J44.9 - Chronic obstructive pulmonary disease, unspecified (6) Multiple lung nodules: (7) Emphysema/COPD: Qualifiers: Emphysema type: unspecified Qualified Code(s): J43.9 - Emphysema, unspecified Plan Requested hospice referral Spoke with the family Patient is currently on 2 L Will add morphine and Xanax Advance lung cancer DNR/DNI If hospice is able to set up everything today I will be able to discharge her today otherwise we will do it by tomorrow Will discontinue antibiotics Continue steroids and opioids Attestations 2 Medical Necessity Statement*: Discharge later today versus tomorrow Diagnoses Risk for falls Z91.81 Anxiety F41.9 Secondary and unspecified malignant neoplasm of intrathoracic lymph nodes C77.1 Small cell carcinoma of lung C34.90 Chronic obstructive pulmonary disease, unspecified COPD type J44.9 COPD type: unspecified COPD Multiple lung nodules R91.8 Pulmonary emphysema, unspecified emphysema type J43.9 Emphysema type: unspecified
[2023-07-23] MEDS: albuterol 2.5 mg/3 mL Neb 1.25 MG INHALATION ×2 (13:20→20:29)
[2023-07-23] MEDS: ondansetron 2 mg/ML SDV 2 mL 4 MG IVP (14:13)
[2023-07-23 19:22] LABS: Add Urine Microscopic? YES; Bilirubin Urine Neg (Negative); Blood Urine Neg (Negative); Glucose Urine UA Norm (Normal); Ketones Urine Negative (Negative); Leukocyte Esterase Urine Trace (Negative); Nitrate Urine Negative (Negative); Protein Urine Neg (Negative); Specific Gravity, Urine 1.025 (1.005-1.030); Urine Appearance Clear (CLEAR); Urine Color Amber (Yellow); Urobilinogen Urine Norm (Negative); pH Urine 5 (5-7)
[2023-07-23 19:27] LABS: RBC Urine 0-4 /hpf (0-2); Squamous Epithelial Cell Urine 0-4 /hpf (0-5); WBC Urine 0-4 /hpf (0-5)
[2023-07-23 19:28] LABS: Add Urine Culture? No; Bacteria Urine TRACE /hpf; Hyaline Casts Urine 0-4 /lpf; Mucus Urine 2+ /hpf
[2023-07-24] VITALS (7 sets, daily range): BP systolic 109–122; BP diastolic 70–78; PULSE 86–98; RESP 15–20; TEMP 36.3–36.4; O2SAT 92–95
[2023-07-24] MEDS: predniSONE 20 mg Tablet 40 MG PO (06:18)
[2023-07-24] MEDS: albuterol 2.5 mg/3 mL Neb 1.25 MG INHALATION (07:53)
[2023-07-24] MEDS: budesonide 0.5 mg/2 mL Neb INHALATION (07:53)
--- NOTE | 2023-07-24 08:30 | US_ITS ---
WS: [id number] INDICATION: RIGHT pleural effusion TECHNIQUE: Ultrasound RIGHT chest FINDINGS: Mild to moderate RIGHT pleural effusion with RIGHT basilar atelectasis. US/US chest [id number] IMPRESSION: See above
[2023-07-24] MEDS: levothyroxine 25 mcg Tablet 12.5 MCG PO (09:45)
[2023-07-24] MEDS: sennosides-docusate Tablet 2 TAB PO (09:45)
--- NOTE | 2023-07-24 10:45 | P.DS_ITS ---
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: Status: Acute (4) Small cell carcinoma of lung: Status: Acute (5) COPD (chronic obstructive pulmonary disease): Status: Acute Qualifiers: COPD type: unspecified COPD Qualified Code(s): J44.9 - Chronic obstructive pulmonary disease, unspecified (6) Multiple lung nodules: Status: Acute Permanent problem details: 5mm right upper lobe 3mm right lower lob (CT ) (7) Emphysema/COPD: Status: Acute Qualifiers: Emphysema type: unspecified Qualified Code(s): J43.9 - Emphysema, unspecified Reason for Visit Reason for Visit: SOB Hospital Course Hospital Course 82-year-old female who was readmitted for management evaluation of worsening of hypoxic respiratory failure, at this time she was requiring 2 L of oxygen, thoracentesis was requested which was canceled because there was not enough to be drained, patient requires 2 L of oxygen intermittently more likely for her comfort, she had decided to opt for hospice care at this point, family meeting was conducted, [facility] hospice company selected by the family. Patient has small cell lung cancer, she is getting opioids which is causing constipation added lactulose as well. Opioids will be prescribed by hospice. Physical Exam Narrative: Dehydrated Malnourished GCS 15 Pleasant cooperative Nonfocal neuroexam Discharge Data Studies Completed and Pending Completed Studies During Hospitalization Category Date Time Status XR chest 1V portable [id number] Stat Exams 07/22/23 19:23 Completed Pending at discharge Category Date Time Status Blood Culture Stat Lab 07/22/23 22:20 Results US thoracentesis [id number] Routine Ultrasound 07/24/23 08:30 Taken Radiology Impressions Chest X-Ray 07/22/23 19:23 IMPRESSION: Small to moderate bilateral pleural effusions. Laboratory Results WBC 8.05 10^3/uL (3.29-11.43) 07/23/23 03:55 RBC 4.11 10^6/uL (3.85-5.65) 07/23/23 03:55 Hgb 11.60 g/dL (11.27-16.99) 07/23/23 03:55 Hct 37.3 % (36-47) 07/23/23 03:55 MCV 90.8 fl (85-98) D 07/23/23 03:55 MCH 28.2 pg (27-33) 07/23/23 03:55 MCHC 31.1 g/dL (30-55) D 07/23/23 03:55 RDW 13.5 % (12.1-15.1) 07/23/23 03:55 Plt Count 281 10^3/cmm (157-399) 07/23/23 03:55 MPV 8.9 fL (7.4-10.4) 07/23/23 03:55 Neut % (Auto) 76.7 % 07/23/23 03:55 Lymph % (Auto) 11.2 % 07/23/23 03:55 [place] % (Auto) 7.3 % 07/23/23 03:55 Eos % (Auto) 3.7 % 07/23/23 03:55 Baso % (Auto) 0.4 % 07/23/23 03:55 Neut # (Auto) 6.17 10^3/uL (1.8-7.7) 07/23/23 03:55 Lymph # (Auto) 0.9 10^3/uL (0.8-4.8) 07/23/23 03:55 [place] # (Auto) 0.6 10^3/uL (0.2-0.9) 07/23/23 03:55 Eos # (Auto) 0.3 10^3/uL (0.0-0.8) 07/23/23 03:55 Baso # (Auto) 0.0 10^3/uL (0.0-0.1) 07/23/23 03:55 Nucleated RBC % (auto) 0 % 07/23/23 03:55 Nucleated RBCs # 0.0 /100WBC 07/23/23 03:55 Sodium 128 mmol/L (136-145) L 07/23/23 03:55 Potassium 4.3 mmol/L (3.5-5.1) 07/23/23 03:55 Chloride 96 mmol/L (98-107) L 07/23/23 03:55 Carbon Dioxide 19 mmol/L (22-29) L 07/23/23 03:55 Anion Gap 17.3 (5-19) 07/23/23 03:55 BUN 21 mg/dL (8-23) 07/23/23 03:55 Creatinine 0.7 mg/dL (0.5-0.9) 07/23/23 03:55 GFR Calculation Not Reportable 07/23/23 03:55 Glucose 103 mg/dL (65-115) 07/23/23 03:55 Calculated Osmolality 269 mOsm/kg (285-295) L 07/23/23 03:55 Lactic Acid 1.1 mmol/L (0.5-2.2) 07/22/23 22:25 Calcium 8.2 mg/dL (8.5-10.5) L 07/23/23 03:55 Total Bilirubin 0.3 mg/dL (0.15-1.2) 07/23/23 03:55 AST 20 U/L (0-32) 07/23/23 03:55 ALT 19 U/L (0-33) 07/23/23 03:55 Alkaline Phosphatase 215 U/L (35-105) H 07/23/23 03:55 Troponin T Baseline 13 ng/L (0-10) H 07/22/23 22:25 Troponin T 120 Minute 15.19 ng/L (0-10) H 07/22/23 11:50 Delta Troponin T 2.19 ABS# (0-10) 07/22/23 11:50 Troponin T Hi Sens 6Hr 15.83 ng/L (0-10) H 07/23/23 03:55 Troponin T Hi Sens 6Hr Delta 2.83 ng/L (0-12) 07/23/23 03:55 NT-Pro-B Natriuret Pep 207 pg/mL (0-450) 07/22/23 19:44 Total Protein 6.6 g/dL (6.6-8.7) 07/23/23 03:55 Albumin 2.7 g/dL (3.5-5.2) L 07/23/23 03:55 Globulin 3.9 g/dL (1.3-4.6) 07/23/23 03:55 Procalcitonin 0.09 ng/mL (0-0.5) 07/22/23 22:25 Urine Color Marisa (Yellow) 07/23/23 18:52 Urine Appearance Clear (CLEAR) 07/23/23 18:52 Urine pH 5 (5-7) 07/23/23 18:52 Ur Specific [place] 1.025 (1.005-1.030) 07/23/23 18:52 Urine Protein Neg (Negative) 07/23/23 18:52 Urine Glucose (UA) Norm (Normal) 07/23/23 18:52 Urine Ketones Negative (Negative) 07/23/23 18:52 Urine Blood Neg (Negative) 07/23/23 18:52 Urine Nitrate Negative (Negative) 07/23/23 18:52 Urine Bilirubin Neg (Negative) 07/23/23 18:52 Urine Urobilinogen Norm mg/dL (Negative) 07/23/23 18:52 Ur Leukocyte Esterase Trace (Negative) H 07/23/23 18:52 Urine RBC 0-4 /hpf (0-2) H 07/23/23 18:52 Urine WBC 0-4 /hpf (0-5) H 07/23/23 18:52 Ur Squamous Epith Cells 0-4 /hpf (0-5) H 07/23/23 18:52 Amorphous Sediment Not Reportable 07/23/23 18:52 Urine Bacteria Trace /hpf (NONE) 07/23/23 18:52 Hyaline Casts 0-4 /lpf H 07/23/23 18:52 Urine Mucus 2+ /hpf 07/23/23 18:52 Vitals Last Vital Signs Temp 97.6 F 07/24/23 07:50 Pulse 86 07/24/23 07:58 Resp 16 07/24/23 07:54 BP 122/78 07/24/23 07:50 Pulse Ox 95 07/24/23 07:54 O2 Del Method Room Air 07/24/23 07:54 O2 Flow Rate 1 07/23/23 16:22 Discharge Plan Discharge Patient Disposition: Hospice - Home Condition: Stable Prescriptions: Continued ICaps AREDS2 250 mg-200 unit -12.5 mg-1 mg capsule 1 cap PO DAILY mecobalamin (vitamin B12) 1,000 mcg tablet,disintegrating 1,000 mcg sublingual DAILY 30 Days Qty: 30 2RF Rx Instructions: place tablet under tongue and allow to dissolve for at least30 secs before swallowing albuterol sulfate [ProAir HFA] 90 mcg/actuation HFA aerosol inhaler 2 inh inhalation Q6H PRN (Reason: Shortness Of Breath) Qty: 8.5 2RF ondansetron HCl 4 mg tablet 4 mg PO Q8H PRN (Reason: Nausea And Vomiting) pantoprazole [Protonix] 40 mg tablet,delayed release (DR/EC) 40 mg PO DAILY PRN (Reason: Heartburn) Incruse Ellipta 62.5 mcg/actuation blister with device 1 inh inhalation DAILY Qty: 30 3RF diazepam 5 mg tablet 5 mg PO TID PRN (Reason: anxiety) 30 Days Qty: 90 4RF (DME) nebulizers [MicroAir Mesh Nebulizer] [facility] See Rx Instructions .Route Qty: 1 0RF Rx Instructions: As directed Q6h PRN Needs tubing and mask/mouthpiece levothyroxine 25 mcg tablet See Rx Instructions .ROUTE .COMPLEX Qty: 15 5RF Dose Instruction: TAKE ONE-HALF TABLET (12.5 MCG) BY MOUTH DAILY FOR 30 DAYS Rx Instructions: TAKE ONE-HALF TABLET (12.5 MCG) BY MOUTH DAILY FOR 30 DAYS albuterol sulfate 2.5 mg /3 mL (0.083 %) solution for nebulization 1.25 mg inhalation Q6H PRN (Reason: bronchospasm) Qty: 90 2RF chlorhexidine gluconate 0.12 % mouthwash See Rx Instructions .ROUTE .COMPLEX Qty: 473 2RF Dose Instruction: USE ONE-HALF OUNCE (15 ML) BY MOUTH TWICE DAILY Rx Instructions: USE ONE-HALF OUNCE (15 ML) BY MOUTH TWICE DAILY Symbicort 160-4.5 mcg/actuation HFA aerosol inhaler 1 puff inhalation BID Qty: 10.2 2RF sennosides-docusate sodium [Senna-S] 8.6-50 mg tablet 2 tab-cap PO BID Qty: 60 0RF prednisone 20 mg tablet 40 mg PO QAM cyclobenzaprine 10 mg tablet 10 mg PO DAILY PRN (Reason: Muscle Spasm) fluticasone propionate 50 mcg/actuation spray,suspension 1 spray intranasal BID guaifenesin [Mucinex] 600 mg tablet extended release 12hr 600 mg PO Q12H lactulose 20 gram/30 mL solution 20 g PO DAILY 30 Days Qty: 1200 3RF Discontinued 28-800 mg-mcg Tablet 1 tab PO DAILY Discharge Orders: Discharge Order (Routine); Ordered 07/24/23 Ordered By: Rosita Urrutia Referrals: [facility] [Outside] PARISH Mabry, [employer] FACILITATOR [Primary Care Provider] - Discharge Diet: Cardiac Discharge Activity: Increase activity as tolerated Patient Instructions: Opioid Safety Discharge Attestations Time Spent in Discharge Care*: less than 30 min Status at Discharge: Cognitive status at discharge: cognitively intact , Behavioral status at discharge: cooperative , Quality Metrics Clinical Quality Measures [ No reported AMI, CVA or VTE this stay] Coding Level of Care Code Acute Code for Chg Fwd Diagnoses Risk for falls Z91.81 Anxiety F41.9 Secondary and unspecified malignant neoplasm of intrathoracic lymph nodes C77.1 Small cell carcinoma of lung C34.90 Chronic obstructive pulmonary disease, unspecified COPD type J44.9 COPD type: unspecified COPD Multiple lung nodules R91.8 Pulmonary emphysema, unspecified emphysema type J43.9 Emphysema type: unspecified
--- NOTE | 2023-07-24 12:32 | PC.SOCIAL ---
IMM Update pg 2 of IMM updated and reviewed w/ patient and her daughter. Copy dated, initialed and placed in chart.
== END 2023-07-24 12:40 | disposition hospice, home (50) | DRG 189 ==
LOC: ER 21:32 → MEDSURG 21:45
PROVIDERS: Admitting Provider Family Medicine; Emergency Provider Emergency Medicine; PCP Nurse Practitioner Family; Visit Provider Internal Medicine
DX: J96.91 Respiratory failure, unspecified with hypoxia (principal); C34.90 Malignant neoplasm of unspecified part of unspecified bronchus or lung; C77.1 Secondary and unspecified malignant neoplasm of intrathoracic lymph nodes; J43.9 Emphysema, unspecified; E88.A Wasting disease (syndrome) due to underlying condition; E78.00 Pure hypercholesterolemia, unspecified; F41.9 Anxiety disorder, unspecified; F32.A Depression, unspecified; K21.9 Gastro-esophageal reflux disease without esophagitis; K59.03 Drug induced constipation; T40.605A Adverse effect of unspecified narcotics, initial encounter; Z68.22 Body mass index [BMI] 22.0-22.9, adult; Z87.01 Personal history of pneumonia (recurrent); Z87.891 Personal history of nicotine dependence
CPT/HCPCS: 32555; 36415; 71045; 76604; 80053; 81001; 81003; 83605; 83880; 84145; 84484; 85025; 87040; 93005; 94640; 96365; 96367; 96372; 96375; 97161; 97166; 97535; 99285; C9113; J1650; J2270; J2405; J3370; J3490; J7050; J7512; J7613; J7626

== ENCOUNTER 2023-07-28 00:07 | Emergency (ER) | payer MEDICARE, MEDICAID, SELFPAY ==
[2023-07-28] VITALS (8 sets, daily range): BP systolic 104–148; BP diastolic 62–97; PULSE 82–96; RESP 17–18; TEMP 36.3; O2SAT 94–100; BMI 17.9
--- NOTE | 2023-07-28 04:16 | ED_ITS ---
HPI - Allergic Reaction 2 General: Chief complaint: Allergic Reaction Stated complaint: ALLGERIC REACTION Time Seen by Provider: 07/28/23 04:14 History of Present Illness: HPI narrative: 82-year-old female recently placed on ho spice. She presents with redness and itching with some swelling to her face and chest. She has been using Benadryl, with some relief. She took Benadryl tonight with relief. No significant airway problems, or shortness of breath. She notes that she has not been able to sleep the last couple of nights because of itching and rash. She has been on antibiotics for urinary tract infection recently. She does not know if this is the culprit. 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 Anxiety Small cell carcinoma Influenza B 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 Emphysema/COPD Acute bacterial sinusitis Shortness of breath Acute diverticulitis Acute sinusitis Adverse effect of drug or medicament Pneumonia Nicotine dependence, cigarettes, uncomplicated History of colonic polyps Hypercholesterolemia Anxiety and depression Fatigue Weight loss Environmental and seasonal allergies Breast cancer screening by mammogram GERD (gastroesophageal reflux disease) Multiple lung nodules 5mm right upper lobe 3mm right lower lob (CT -2018) Diverticulosis Vitamin B12 deficiency COPD (chronic obstructive pulmonary disease) Vitamin D deficiency Surgical History History of colonoscopy Multiple colonoscopy procedures History of colon surgery Cecal repair following colonoscopy Status post carpal tunnel release of both wrists History of neck surgery Removal of benign tumor from the right side of the neck/postauricular area Status post cholecystectomy (2014) Family History Brother Lung disease Other CAD (coronary artery disease) Cancer Denies family history of Diabetes Clotting disorder Dementia Hyperlipidemia Psychiatric illness Chronic kidney disease (CKD) Suicide Anesthesia complication Bleeding disorder Hypertension Stroke Social History Smoking and tobacco/nicotine status: current every day tobacco/nicotine user Quit status (tobacco/nicotine): has quit using Year quit tobacco: 2021 Former quit date comment: 1 ppd X 60 Alcohol intake: never Substance/Drug Use: never Lives independently: Yes Household members: none Physical Exam 2 Const: COMMON NORMALS: no acute distress HENMT: COMMON NORMALS: normocephalic, atraumatic and Normal external nose present HEAD & SCALP: normocephalic and atraumatic NOSE: Normal external nose present Eye: COMMON NORMALS: Equal, round and reactive pupils present and EOMs intact bilaterally PUPIL: Yes Equal, round and reactive pupils present Chest: CHEST: Yes Symmetrical chest wall rise Resp: COMMON NORMALS: normal respiratory effort, No use of accessory muscles and clear to auscultation bilaterally AUSCULTATION: clear to auscultation bilaterally Cardio: COMMON NORMALS: regular rate and regular rhythm RATE: regular rate RHYTHM: regular rhythm Neuro: MÓNICA COMA SCALE: document GCS findings [place] coma scale eye opening: Spontaneous [place] coma scale verbal response: Orientated Mónica coma scale motor response: Obey commands Mónica coma scale total score: 15 Skin: NARRATIVE SKIN EXAM: Erythematous plaque to face and chest. Some urticaria scattered throughout. Course 2 Vital Signs: Vital signs: Vital Signs Temperature 97.4 F L 07/28/23 00:20 Pulse Rate 91 07/28/23 07:35 Respiratory Rate 17 07/28/23 07:35 Blood Pressure 128/71 07/28/23 07:35 Pulse Oximetry 96 07/28/23 07:35 Oxygen Delivery Me thod Room Air 07/28/23 06:01 MDM - Allergic Reaction Medical Decision Making Redness is improved following dexamethasone here. She has been using Benadryl, which has helped as well. Hemoglobin is 11. Sodium is 131. Potassium 3.4. Other laboratory not terribly remarkable. She still has some whites in her urine with nitrate positive status. In case the Levaquin is the culprit, we will switch her to cefdinir. She has a ceftriaxone allergy listed that causes a rash, but she does not remember this. Will use Medrol for the reaction as well. She will return for any worsening symptoms. Lab Data 07/28/23 05:16 07/28/23 05:16 Laboratory Results WBC 6.19 10^3/uL (3.29-11.43) 07/28/23 05:16 RBC 3.84 10^6/uL (3.85-5.65) L 07/28/23 05:16 Hgb 10.80 g/dL (11.27-16.99) L 07/28/23 05:16 Hct 33.6 % (36-47) L 07/28/23 05:16 MCV 87.5 fl (85-98) 07/28/23 05:16 MCH 28.1 pg (27-33) 07/28/23 05:16 MCHC 32.1 g/dL (30-55) 07/28/23 05:16 RDW 13.7 % (12.1-15.1) 07/28/23 05:16 Plt Count 271 10^3/cmm (157-399) 07/28/23 05:16 MPV 8.7 fL (7.4-10.4) 07/28/23 05:16 Neut % (Auto) 71.0 % 07/28/23 05:16 Lymph % (Auto) 12.8 % 07/28/23 05:16 [place] % (Auto) 7.8 % 07/28/23 05:16 Eos % (Auto) 6.8 % 07/28/23 05:16 Baso % (Auto) 0.5 % 07/28/23 05:16 Neut # (Auto) 4.40 10^3/uL (1.8-7.7) 07/28/23 05:16 Lymph # (Auto) 0.8 10^3/uL (0.8-4.8) 07/28/23 05:16 [place] # (Auto) 0.5 10^3/uL (0.2-0.9) 07/28/23 05:16 Eos # (Auto) 0.4 10^3/uL (0.0-0.8) 07/28/23 05:16 Baso # (Auto) 0.0 10^3/uL (0.0-0.1) 07/28/23 05:16 Nucleated RBC % (auto) 0 % 07/28/23 05:16 Nucleated RBCs # 0.0 /100WBC 07/28/23 05:16 Sodium 131 mmol/L (136-145) L 07/28/23 05:16 Potassium 3.4 mmol/L (3.5-5.1) L 07/28/23 05:16 Chloride 97 mmol/L (98-107) L 07/28/23 05:16 Carbon Dioxide 25 mmol/L (22-29) 07/28/23 05:16 Anion Gap 12.4 (5-19) 07/28/23 05:16 BUN 14 mg/dL (8-23) 07/28/23 05:16 Creatinine 0.8 mg/dL (0.5-0.9) 07/28/23 05:16 GFR Calculation Not Reportable 07/28/23 05:16 Glucose 95 mg/dL (65-115) 07/28/23 05:16 Calculated Osmolality 272 mOsm/kg (285-295) L 07/28/23 05:16 Calcium 8.8 mg/dL (8.5-10.5) 07/28/23 05:16 Total Bilirubin 0.2 mg/dL (0.15-1.2) 07/28/23 05:16 AST 18 U/L (0-32) 07/28/23 05:16 ALT 18 U/L (0-33) 07/28/23 05:16 Alkaline Phosphatase 98 U/L (35-105) 07/28/23 05:16 Total Protein 6.8 g/dL (6.6-8.7) 07/28/23 05:16 Albumin 3.1 g/dL (3.5-5.2) L 07/28/23 05:16 Globulin 3.7 g/dL (1.3-4.6) 07/28/23 05:16 Urine Color [place] (Yellow) A 07/28/23 06:37 Urine Appearance Clear (CLEAR) 07/28/23 06:37 Urine pH 5 (5-7) 07/28/23 06:37 Ur Specific [place] 1.020 (1.005-1.030) 07/28/23 06:37 Urine Protein 3+ (Negative) H 05/12/24 06:37 Urine Glucose (UA) Norm (Normal) 07/28/23 06:37 Urine Ketones Negative (Negative) 07/28/23 06:37 Urine Blood Neg (Negative) 07/28/23 06:37 Urine Nitrate Positive (Negative) H 07/28/23 06:37 Urine Bilirubin Neg (Negative) 07/28/23 06:37 Urine Urobilinogen 8 mg/dL (Negative) H 07/28/23 06:37 Ur Leukocyte Esterase Negative (Negative) 07/28/23 06:37 Urine RBC None /hpf (0-2) 07/28/23 06:37 Urine WBC 10-15 /hpf (0-5) H 07/28/23 06:37 Ur Squamous Epith Cells 0-4 /hpf (0-5) H 07/28/23 06:37 Amorphous Sediment Not Reportable 07/28/23 06:37 Urine Bacteria 1+ /hpf (NONE) H 07/28/23 06:37 No radiology studies performed this visit Discharge Plan Discharge Patient Disposition: Home Clinical Impression: Allergic reaction Condition: Stable Prescriptions: New Medrol (Saji) 4 mg tablets,dose pack See Rx Instructions .ROUTE .COMPLEX Qty: 21 0RF Rx Instructions: orally per package directions Benadryl 25 mg capsule 25 mg PO Q8H PRN (Reason: allergic reaction) Qty: 30 0RF cefdinir 300 mg capsule 300 mg PO BID 10 Days Qty: 20 0RF Discontinued levofloxacin 750 mg tablet 750 mg PO DAILY 7 Days Qty: 7 0RF No Action ICaps AREDS2 250 mg-200 unit -12.5 mg-1 mg capsule 1 cap PO DAILY mecobalamin (vitamin B12) 1,000 mcg tablet,disintegrating 1,000 mcg sublingual DAILY 30 Days Qty: 30 2RF Rx Instructions: place tablet under tongue and allow to dissolve for at least30 secs before swallowing albuterol sulfate [ProAir HFA] 90 mcg/actuation HFA aerosol inhaler 2 inh inhalation Q6H PRN (Reason: Shortness Of Breath) Qty: 8.5 2RF ondansetron HCl 4 mg tablet 4 mg PO Q8H PRN (Reason: Nausea And Vomiting) pantoprazole [Protonix] 40 mg tablet,delayed release (DR/EC) 40 mg PO DAILY PRN (Reason: Heartburn) Incruse Ellipta 62.5 mcg/actuation blister with device 1 inh inhalation DAILY Qty: 30 3RF diazepam 5 mg tablet 5 mg PO TID PRN (Reason: anxiety) 30 Days Qty: 90 4RF (DME) nebulizers [MicroAir Mesh Nebulizer] [facility] See Rx Instructions .Route Qty: 1 0RF Rx Instructions: As directed Q6h PRN Needs tubing and mask/mouthpiece levothyroxine 25 mcg tablet See Rx Instructions .ROUTE .COMPLEX Qty: 15 5RF Dose Instruction: TAKE ONE-HALF TABLET (12.5 MCG) BY MOUTH DAILY FOR 30 DAYS Rx Instructions: TAKE ONE-HALF TABLET (12.5 MCG) BY MOUTH DAILY FOR 30 DAYS albuterol sulfate 2.5 mg /3 mL (0.083 %) solution for nebulization 1.25 mg inhalation Q6H PRN (Reason: bronchospasm) Qty: 90 2RF chlorhexidine gluconate 0.12 % mouthwash See Rx Instructions .ROUTE .COMPLEX Qty: 473 2RF Dose Instruction: USE ONE-HALF OUNCE (15 ML) BY MOUTH TWICE DAILY Rx Instructions: USE ONE-HALF OUNCE (15 ML) BY MOUTH TWICE DAILY Symbicort 160-4.5 mcg/actuation HFA aerosol inhaler 1 puff inhalation BID Qty: 10.2 2RF prednisone 20 mg tablet 40 mg PO QAM Qty: 30 0RF sennosides-docusate sodium [Senna-S] 8.6-50 mg tablet 2 tab-cap PO BID Qty: 60 0RF cyclobenzaprine 10 mg tablet 10 mg PO DAILY PRN (Reason: Muscle Spasm) fluticasone propionate 50 mcg/actuation spray,suspension 1 spray intranasal BID guaifenesin [Mucinex] 600 mg tablet extended release 12hr 600 mg PO Q12H lactulose 20 gram/30 mL solution 20 g PO DAILY 30 Days Qty: 1200 3RF Discharge Orders: Discharge ED (Routine); Ordered 07/28/23 Ordered By: Jamal Nuñez Referrals: PARISH Mabry, PERFORMANCE TESTER [Primary Care Provider] - 1-3 days Patient Instructions: Allergic Reaction, Urinary Tract Infection in Older Adults (ED), Opioid Safety, Pain Management Activity Restrictions/Additional Instructions: Stop the levofloxacin, as it could be causing your allergic reaction. Fill the new antibiotic, and finish it. Use the medications for your allergy as directed. Return for any problems. See your doctor this week. Coding Level of Care Code ED Superintendent [employer] for Wilfrid Lorenzana
[2023-07-28 05:27] LABS: Basophils % 0.5 %; Eosinophils # 0.4 10^3/uL (0.0-0.8); Eosinophils % 6.8 %; Hematocrit 33.6 % (36-47); Lymphocytes # 0.8 10^3/uL (0.8-4.8); Lymphocytes % 12.8 %; Mean Corpuscular HGB Conc 32.1 g/dL (30-55); Mean Corpuscular Hemoglobin 28.1 pg (27-33); Mean Corpuscular Volume 87.5 fl (85-98); Mean Platelet Volume 8.7 fL (7.4-10.4); Monocytes # 0.5 10^3/uL (0.2-0.9); Monocytes % 7.8 %; Nucleated Red Blood Cells % 0 %; Platelet Count 271 10^3/cmm (157-399); Red Blood Count 3.84 10^6/uL (3.85-5.65); Red Cell Distribution Width 13.7 % (12.1-15.1); White Blood Count 6.19 10^3/uL (3.29-11.43)
[2023-07-28 05:44] LABS: Alanine Aminotransferase 18 U/L (0-33); Albumin Level 3.1 g/dL (3.5-5.2); Alkaline Phosphatase 98 U/L (35-105); Anion Gap 12.4 (5-19); Aspartate Amino Transferase 18 U/L (0-32); Blood Urea Nitrogen 14 mg/dL (8-23); Calcium 8.8 mg/dL (8.5-10.5); Carbon Dioxide 25 mmol/L (22-29); Chloride 97 mmol/L (98-107); Creatinine Clr Calc Pharmacy 49.3351; Globulin 3.7 g/dL (1.3-4.6); Glucose 95 mg/dL (65-115); Osmolality Calculated 272 mOsm/kg (285-295); Potassium 3.4 mmol/L (3.5-5.1); Sodium 131 mmol/L (136-145); Total Bilirubin 0.2 mg/dL (0.15-1.2); Total Protein 6.8 g/dL (6.6-8.7)
[2023-07-28] MEDS: dexamethasone 10 mg/mL INJ IVP (05:52)
[2023-07-28] MEDS: diphenhydrAMINE 50 mg/mL SDV 1mL 25 MG IVP (05:52)
[2023-07-28 07:11] LABS: Protein Urine 3+ (Negative); Urine Appearance Clear (CLEAR); Urine Color Orange (Yellow); pH Urine 5 (5-7)
[2023-07-28 07:12] LABS: Add Urine Culture? No; Add Urine Microscopic? YES; Bacteria Urine 1+ /hpf; Bilirubin Urine Neg (Negative); Blood Urine Neg (Negative); Glucose Urine UA Norm (Normal); Ketones Urine Negative (Negative); Leukocyte Esterase Urine Negative (Negative); Nitrate Urine Positive (Negative); Squamous Epithelial Cell Urine 0-4 /hpf (0-5); Urobilinogen Urine 8 mg/dL (Negative)
== END 2023-07-28 07:36 | disposition home or self-care (01) ==
PROVIDERS: Emergency Provider Emergency Medicine; PCP Nurse Practitioner Family
DX: T78.40XA Allergy, unspecified, initial encounter (principal); X58.XXXA Exposure to other specified factors, initial encounter; Z85.118 Personal history of other malignant neoplasm of bronchus and lung; Z85.72 Personal history of non-Hodgkin lymphomas; J44.9 Chronic obstructive pulmonary disease, unspecified; Z72.0 Tobacco use
CPT/HCPCS: 80053; 81001; 85025; 96374; 96375; 99284; J1100; J1200